=== PATIENT | female | born 1990 | race Caucasian/White ===

== ENCOUNTER 2018-01-09 01:22 | Emergency (ER) | payer OTHER ==
[2018-01-09] MEDS ORDERED: LIDOCAINE 1% 20 ML MDV ONE (02:00)
--- NOTE | 2018-01-09 02:48 | ER ---
Nurse's Notes [facility] Name: Irma Mckeon Age: 27 yrs Sex: Female : 1990 Arrival Date: 01/09/2018 Time: :23 Bed 23 Private MD: Manpreet Plascencia T Diagnosis: Abscess to left upper, inner thigh Presentation: 01/09 01:39 Presenting complaint: Patient states: "I have a boil on my left groin"; States seen by lp1 Dr. Plascencia on Wednesday and prescribed antibiotic and Pyridium; has taken 1 dose of antibiotic; States pain when walking. Transition of care: patient was not received from another setting of care. Onset of symptoms was January 09, 2018. Initial Sepsis Screen: Does the patient meet any 2 criteria? No. Patient's initial sepsis screen is negative. Does the patient have a suspected source of infection? No. Patient's initial sepsis screen is negative. Care prior to arrival: None. 01:39 Method Of Arrival: Wheelchair lp1 01:39 Acuity: ELLEN 4 lp1 Triage Assessment: 01:45 General: Appears uncomfortable, Behavior is appropriate for age. Pain: Complains of lp1 pain in left inner thigh Pain currently is 10 out of 10 on a pain scale. EENT: No signs and/or symptoms were reported regarding the EENT system. Neuro: Level of Consciousness is awake, alert, obeys commands. Cardiovascular: Patient's skin is warm and dry. Respiratory: Respiratory effort is even, unlabored, Respiratory pattern is regular. GI: No signs and/or symptoms were reported involving the gastrointestinal system. : No signs and/or symptoms were reported regarding the genitourinary system. Derm: Skin is pink, warm \\T\\ dry. Abscess located on left inner thigh is half dollar sized. Musculoskeletal: Circulation, motion, and sensation intact. 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 - Social history:: Smoking status: Patient uses tobacco products, smokes one-half pack cigarettes per day. Screenin:44 Abuse screen: Denies threats or abuse. Denies injuries from another. Nutritional lp1 screening: No deficits noted. Tuberculosis screening: No symptoms or risk factors identified. Fall Risk None identified. Assessment: 01:45 Reassessment: See Triage assessment. lp1 03:00 Reassessment: Patient is alert, oriented x 3, equal unlabored respirations, skin lp1 warm/dry/pink. Bandage applied to left inner thigh for continued drainage. Vital Signs: 01:43 BP 140 / 89; Pulse 103; Resp 16; Temp 99.0(O); Pulse Ox 99% on R/A; Weight 51.26 kg; lp1 Height 5 ft. 1 in. (154.94 cm); Pain 9/10; 03:27 BP 134 / 84; Pulse 90; Resp 18; Pulse Ox 99% on R/A; lp1 01:43 Body Mass Index 21.35 (51.26 kg, 154.94 cm) lp1 ED Course: 01:23 Patient arrived in ED. am2 01:23 Manpreet Plascencia MD is Private Physician. am2 01:37 Sunitha Evans FNP-C is [facility]. snw 01:37 Rex Simon MD is Attending Physician. snw 01:39 Anali Shaikh, KEVAN is Primary Nurse. lp1 01:42 Triage completed. lp1 01:42 Arm band placed on left wrist. lp1 01:44 Patient has correct armband on for positive identification. lp1 02:30 Assist provider with I \\T\\ D: of an abscess on left inner thigh. lp1 02:46 Manpreet Plascencia MD is Referral Physician. snw 03:20 Patient did not have IV access during this emergency room visit. lp1 Administered Medications: 02:30 Drug: Lidocaine (1 %) 1 vials Volume: 20 ml; Route: Infiltration; lp1 03:23 Drug: Motrin 600 mg Route: PO; lp1 03:24 Follow up: Response: Medication administered at discharge. lp1 Outcome: 02:47 Discharge ordered by . snw 03:24 Discharged to home ambulatory, with significant other. lp1 03:24 Condition: good 03:24 Discharge instructions given to patient, Instructed on discharge instructions, follow up and referral plans. medication usage, Demonstrated understanding of instructions, follow-up care, medications, Prescriptions given X 3. 03:29 Patient left the ED. lp1 Signatures: Sunitha Evans, CYLINDER BATCHER-C CYLINDER BATCHER-Csnw Anali Shaikh RN RN lp1 Sabrina Rankin am2
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
[2018-01-09] MEDS ORDERED: KETOROLAC 30 MG/ML INJ ONE (03:09)
[2018-01-09] MEDS ORDERED: IBUPROFEN 200 MG TAB PO ONE (03:21)
[2018-01-09] MEDS ORDERED: IBUPROFEN 400 MG TAB ONE (03:21)
[2018-01-09 03:33] VITALS: TEMP 99; O2SAT 99
[2018-01-09 03:34] VITALS: BP 134/84
== END 2018-01-09 03:29 | disposition home or self-care (01) ==
LOC: ER 01:22
PROC: 0J9M0ZZ Drainage of Left Upper Leg Subcutaneous Tissue and Fascia, Open Approach (ICD-10-PCS; principal; 2018-01-09)
DX: L02.416 Cutaneous abscess of left lower limb (principal); F17.210 Nicotine dependence, cigarettes, uncomplicated
CPT/HCPCS: 99283

== ENCOUNTER 2018-11-28 19:37 | Emergency (ER) | payer OTHER, SELFPAY ==
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
[2018-11-28 23:38] VITALS: TEMP 98.2; O2SAT 100
[2018-11-28 23:41] VITALS: BP 105/76
== END 2018-11-28 21:38 | disposition home or self-care (01) ==
LOC: ER 19:37
PROC: 2W3JX1Z Immobilization of Right Finger using Splint (ICD-10-PCS; principal; 2018-11-28)
DX: S62.366A Nondisplaced fracture of neck of fifth metacarpal bone, right hand, initial encounter for closed fracture (principal); Y04.2XXA Assault by strike against or bumped into by another person, initial encounter; Y93.9 Activity, unspecified; Y92.9 Unspecified place or not applicable; F17.210 Nicotine dependence, cigarettes, uncomplicated
CPT/HCPCS: 99283

== ENCOUNTER 2020-06-24 20:47 | Emergency (ER) | payer SELFPAY ==
[2020-06-24] MEDS ORDERED: CYCLOBENZAPRINE 10 MG TAB ONE (22:07)
[2020-06-24] MEDS ORDERED: KETOROLAC 30 MG/ML INJ ONE (22:08)
--- NOTE | 2020-06-24 22:35 | ER ---
Nurse's Notes [facility] Name: Irma Mckeon Age: 29 yrs Sex: Female : 1990 Arrival Date: 06/24/2020 Time: 20:49 Bed 14 Private MD: Diagnosis: Low back pain Presentation: 06/24 21:07 Chief complaint: Patient states: low back pain since this morning, I coughed and ca1 instantly hurt and I couldn't move my back. I couldn't bend over. Denies injury to the back. Denies urinary symptoms. Coronavirus screen: Client denies travel out of the [place] in the last 14 days. At this time, the client does not indicate any symptoms associated with coronavirus-19. Ebola Screen: Patient negative for fever greater than or equal to 101.5 degrees Fahrenheit, and additional compatible Ebola Virus Disease symptoms Patient denies exposure to infectious person. Patient denies travel to an Ebola-affected area in the 21 days before illness onset. No symptoms or risks identified at this time. Initial Sepsis Screen: Does the patient meet any 2 criteria? No. Patient's initial sepsis screen is negative. Does the patient have a suspected source of infection? No. Patient's initial sepsis screen is negative. Risk Assessment: Do you want to hurt yourself or someone else? Patient reports no desire to harm self or others. Onset of symptoms was June 24, 2020. 21:07 Method Of Arrival: Ambulatory ca1 21:07 Acuity: ELLEN 4 ca1 Triage Assessment: 21:50 General: Appears in no apparent distress. uncomfortable, Behavior is calm, cooperative, bb3 appropriate for age, Reports. Pain: Pain currently is 7 out of 10 on a pain scale. Quality of pain is described as sharp, shooting, Pain began this morning. 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 - Social history:: Smoking status: Patient reports the use of cigarette tobacco products, smokes one-half pack cigarettes per day. Screenin:02 Abuse screen: Denies threats or abuse. Nutritional screening: No deficits noted. bb3 Tuberculosis screening: No symptoms or risk factors identified. Fall Risk None identified. Assessment: 21:50 General: Appears in no apparent distress. comfortable, slender, well groomed, Behavior bb3 is calm, cooperative, appropriate for age, Smells of Reports. Pain: Complains of pain in lumbar area, left low back and right low back Pain currently is 7 out of 10 on a pain scale. Quality of pain is described as sharp, shooting, Pain began this morning. 23:05 Reassessment: Patient appears in no apparent distress at this time. Patient and/or bb3 family updated on plan of care and expected duration. Pain level reassessed. Patient is alert, oriented x 3, equal unlabored respirations, skin warm/dry/pink. Patient denies pain at this time. Patient states feeling better. Patient states symptoms have improved. General: Appears in no apparent distress. comfortable. Pain: Denies pain. Vital Signs: 21:07 BP 128 / 89; Pulse 79; Resp 18 S; Temp 97.8(O); Pulse Ox 100% on R/A; Weight 49.9 kg ca1 (R); Height 5 ft. 1 in. (154.94 cm) (R); Pain 8/10; 21:51 BP 124 / 72; Pulse 68; Resp 18; Temp 98.3; Pulse Ox 99% ; Pain 7/10; bb3 22:27 BP 124 / 72; Pulse 87; Resp 17; Pulse Ox 98% ; Pain 2/10; bb3 23:06 BP 119 / 76; Pulse 87; Resp 17; Pulse Ox 99% ; Pain 0/10; bb3 21:07 Body Mass Index 20.78 (49.90 kg, 154.94 cm) ca1 ED Course: 20:49 Patient arrived in ED. bp1 21:09 Triage completed. ca1 21:10 Arm band placed on right wrist. ca1 21:13 Samantha Garduno FNP-C [facility]. kb 21:13 Miki Lara MD is Attending Physician. kb 22:03 Bed in low position. Call light in reach. Side rails up X 1. senior quality control inspector on. Pulse bb3 ox on. 22:03 No provider procedures requiring assistance completed. bb3 Administered Medications: 22:00 Drug: TORadol 30 mg Route: IM; Site: right deltoid; bb3 22:34 Follow up: Response: No adverse reaction; Marked relief of symptoms; Pain is decreased bb3 22:00 Drug: Flexeril 10 mg Route: PO; bb3 22:34 Follow up: Response: No adverse reaction; Marked relief of symptoms; Pain is decreased bb3 Outcome: 22:35 Discharge ordered by MD. weathers 23:07 Patient left the ED. bb3 Signatures: Samantha Garduno FNP-C PAY STATION DEPARTMENT MANAGER-CkRanjana Tillman RN RN ca1 Cherelle Deng bb3 Olga Pedraza bp1 Corrections: (The following items were deleted from the chart) 22:04 22:03 Inserted saline lock: 20 gauge in right in left antecubital area, using aseptic bb3 technique. bb3 22:34 22:32 Pain: Pain currently is 2 out of 10 on a pain scale. bb3 bb3 22:36 22:32 General: Appears in no apparent distress. comfortable, Behavior is calm, bb3 cooperative, appropriate for age, bb3
--- NOTE | 2020-06-24 22:36 | EDPHYS ---
Physician Documentation [facility] Name: Irma Mckeon Age: 29 yrs Sex: Female : 1990 Arrival Date: 06/24/2020 Time: 20:49 Bed 14 Private MD: ED Physician Miki Lara HPI: 06/24 22:31 This 29 yrs old Female presents to ER via Ambulatory with complaints of Low kb Back Pain, Unexplained Weight Loss. 22:31 The patient presents with pain that is acute, with no known mechanism of injury. The kb symptoms are located in the low back. The pain does not radiate. The problem was sustained without known cause. Onset: The symptoms/episode began/occurred today. Modifying factors: The patient symptoms are alleviated by nothing, the patient symptoms are aggravated by leaning forward. Associated signs and symptoms: The patient has no apparent associated signs or symptoms. Severity of symptoms: At their worst the symptoms were mild, in the emergency department the symptoms are unchanged. The patient has not experienced similar symptoms in the past. The patient has not recently seen a physician. Pt reports low back pain that started this morning after coughing. States pain is resolved when still, but returns if she leans forward. Also reports right wrist pain that is intermittent, hasn't had the pain in a few days, but when she does have it the pain stays for about 2 days then resolves on its own. Lastly, pt reports weight loss of approx 35 lbs that occurred over a couple of months. Pt reports she is already seeing her dr for this and has had a workup to determine the cause but they have been unable to find one yet. 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 - Social history:: Smoking status: Patient reports the use of cigarette tobacco products, smokes one-half pack cigarettes per day. ROS: 22:26 Constitutional: Negative for fever, chills, and weight loss, Cardiovascular: Negative kb for chest pain, palpitations, and edema, Respiratory: Negative for shortness of breath, cough, wheezing, and pleuritic chest pain, Abdomen/GI: Negative for abdominal pain, nausea, vomiting, diarrhea, and constipation, : Negative for injury, bleeding, discharge, and swelling, MS/Extremity: Negative for injury and deformity, Skin: Negative for injury, rash, and discoloration, Neuro: Negative for headache, weakness, numbness, tingling, and seizure. 22:26 Back: Positive for pain with movement, of the low back area. Exam: 22:30 Constitutional: This is a well developed, well nourished patient who is awake, alert, kb and in no acute distress. Head/Face: Normocephalic, atraumatic. Chest/axilla: Normal chest wall appearance and motion. Nontender with no deformity. No lesions are appreciated. Cardiovascular: Regular rate and rhythm with a normal S1 and S2. No gallops, murmurs, or rubs. Normal PMI, no JVD. No pulse deficits. Respiratory: Lungs have equal breath sounds bilaterally, clear to auscultation and percussion. No rales, rhonchi or wheezes noted. No increased work of breathing, no retractions or nasal flaring. Abdomen/GI: Soft, non-tender, with normal bowel sounds. No distension or tympany. No guarding or rebound. No evidence of tenderness throughout. Back: No spinal tenderness. No costovertebral tenderness. Full range of motion. Skin: Warm, dry with normal turgor. Normal color with no rashes, no lesions, and no evidence of cellulitis. MS/ Extremity: Pulses equal, no cyanosis. Neurovascular intact. Full, normal range of motion. Neuro: Awake and alert, GCS 15, oriented to person, place, time, and situation. Cranial nerves II-XII grossly intact. Motor strength 5/5 in all extremities. Sensory grossly intact. Cerebellar exam normal. Normal gait. Vital Signs: 21:07 BP 128 / 89; Pulse 79; Resp 18 S; Temp 97.8(O); Pulse Ox 100% on R/A; Weight 49.9 kg ca1 (R); Height 5 ft. 1 in. (154.94 cm) (R); Pain 8/10; 21:51 BP 124 / 72; Pulse 68; Resp 18; Temp 98.3; Pulse Ox 99% ; Pain 7/10; bb3 22:27 BP 124 / 72; Pulse 87; Resp 17; Pulse Ox 98% ; Pain 2/10; bb3 23:06 BP 119 / 76; Pulse 87; Resp 17; Pulse Ox 99% ; Pain 0/10; bb3 21:07 Body Mass Index 20.78 (49.90 kg, 154.94 cm) ca1 MDM: 21:25 Patient medically screened. kb 22:25 Data reviewed: vital signs, nurses notes. Data interpreted: Pulse oximetry: on room air kb is 99 %. Interpretation: normal. Counseling: I had a detailed discussion with the patient and/or guardian regarding: the historical points, exam findings, and any diagnostic results supporting the discharge/admit diagnosis, the need for outpatient follow up, a family practitioner, to return to the emergency department if symptoms worsen or persist or if there are any questions or concerns that arise at home. Administered Medications: 22:00 Drug: TORadol 30 mg Route: IM; Site: right deltoid; bb3 22:34 Follow up: Response: No adverse reaction; Marked relief of symptoms; Pain is decreased bb3 22:00 Drug: Flexeril 10 mg Route: PO; bb3 22:34 Follow up: Response: No adverse reaction; Marked relief of symptoms; Pain is decreased bb3 Disposition: 06/25 05:37 Co-signature as Attending Physician, Miki Lara MD. [email or web address] Disposition: 06/24/20 22:35 Discharged to Home. Impression: Low back pain. - Condition is Stable. - Discharge Instructions: Back Injury Prevention, [id number], Back Pain, Adult, Ylan-cd-Kthc, Back Exercises, [id number]. - Prescriptions for Cyclobenzaprine 10 mg Oral Tablet - take 1 tablet by ORAL route every 8 hours As needed; 21 tablet. Diclofenac Sodium 75 mg Oral Tablet, Delayed Release (E.C.) - take 1 tablet by ORAL route 2 times per day As needed; 30 tablet. - Medication Reconciliation Form, Thank You Letter, Antibiotic Education, Prescription Opioid Use form. - Follow up: Emergency Department; When: As needed; Reason: Worsening of condition. Follow up: Private Physician; When: 2 - 3 days; Reason: Recheck today's complaints, Continuance of care, Re-evaluation by your physician. Signatures: Samantha Garduno, ADY-C NARROW GAUGE BRAKEMAN-Ranjana Ngo RN RN ca1 Cherelle Deng bb3 Miki Lara MD MD [email or web address] Corrections: (The following items were deleted from the chart) 06/24 23:07 22:35 06/24/2020 22:35 Discharged to Home. Impression: Low back pain. Condition is bb3 Stable. Forms are Medication Reconciliation Form, Thank You Letter, Antibiotic Education, Prescription Opioid Use. Follow up: Emergency Department; When: As needed; Reason: Worsening of condition. Follow up: Private Physician; When: 2 - 3 days; Reason: Recheck today's complaints, Continuance of care, Re-evaluation by your physician. kb
[2020-06-24 23:48] VITALS: TEMP 98.3
[2020-06-24 23:54] VITALS: BP 119/76; O2SAT 99
== END 2020-06-24 23:07 | disposition home or self-care (01) ==
LOC: ER 20:47
DX: M54.5 Low back pain (principal); F17.210 Nicotine dependence, cigarettes, uncomplicated
CPT/HCPCS: 96372; 99284

== ENCOUNTER 2022-08-16 22:46 | Emergency (ER) | payer SELFPAY ==
--- NOTE | 2022-08-16 23:27 | EDPHYS ---
Physician Documentation [facility] Name: Irma Mckeon Age: 31 yrs Sex: Female : 1990 Arrival Date: 08/16/2022 Time: 22:50 Bed IW1 Private MD: ED Physician Benson Caldera HPI: 08/16 23:31 This 31 yrs old Female presents to ER via Ambulatory with complaints of BUMP kb ON FACE. 23:31 the patient presents with a swollen area of the left preauricular area. Description: kb erythematous, swollen. Onset: The symptoms/episode began/occurred 6 month(s) ago. Possible cause(s): unknown. Associated signs and symptoms: Pertinent positives: erythema. Modifying factors: the symptoms are alleviated by nothing, the symptoms are aggravated by nothing. Severity of symptoms: At their worst the symptoms were mild, in the emergency department the symptoms are unchanged. The patient has not experienced similar symptoms in the past. The patient has been recently seen by a physician:. Pt reports she was seen by loss prevention coordinator for a cyst on left side of face and she was told to follow up with plastics to have it removed. States she doesn't have insurance so she has been putting it off. Noticed slight redness today so wanted to get it checked again. States the cyst came up about 6 months ago. Historical: - Allergies: 22:56 No Known Allergies; hb - Home Meds: 22:56 None [Active]; hb - PMHx: 22:56 None; hb - PSHx: 22:56 None; hb - Immunization history:: Adult Immunizations up to date. - Social history:: Smoking status: . ROS: 23:30 Constitutional: Negative for fever, chills, and weight loss. kb 23:30 Skin: Positive for of the left preauricular area, cyst. 23:30 All other systems are negative. Exam: 23:30 Constitutional: This is a well developed, well nourished patient who is awake, alert, kb and in no acute distress. Head/Face: Normocephalic, atraumatic. ENT: Moist Mucous membranes Cardiovascular: Regular rate and rhythm with a normal S1 and S2. No gallops, murmurs, or rubs. No pulse deficits. Respiratory: Respirations even and unlabored. No increased work of breathing. Talking in full sentences MS/ Extremity: Pulses equal, no cyanosis. Neurovascular intact. Full, normal range of motion. Neuro: Awake and alert, GCS 15, oriented to person, place, time, and situation. Moves all extremities. Normal gait. Psych: Awake, alert, with orientation to person, place and time. Behavior, mood, and affect are within normal limits. 23:30 Skin: cyst noted to left preauricular area with slight redness. . Vital Signs: 22:54 BP 126 / 75; Pulse 88; Resp 16; Temp 98.3; Pulse Ox 100% on R/A; Weight 54.43 kg; hb Height 5 ft. 1 in. (154.94 cm); Pain 5/10; 22:54 Body Mass Index 22.67 (54.43 kg, 154.94 cm) hb MDM: 23:25 Patient medically screened. kb 23:25 Data reviewed: vital signs, nurses notes. Data interpreted: Pulse oximetry: on room air kb is 100 %. Interpretation: normal. Counseling: I had a detailed discussion with the patient and/or guardian regarding: the historical points, exam findings, and any diagnostic results supporting the discharge/admit diagnosis, the need for outpatient follow up, a general surgeon, a plastic surgeon, to return to the emergency department if symptoms worsen or persist or if there are any questions or concerns that arise at home. Administered Medications: No medications were administered Disposition: 08/17 04:18 Co-signature as Attending Physician, Benson Caldera MD I agree with the assessment and rt plan of care. Disposition Summary: 08/16/22 23:26 Discharge Ordered Location: Home kb Condition: Stable kb Diagnosis - Epidermal cyst kb Followup: kb - With: Emergency Department - When: As needed - Reason: Worsening of condition Followup: kb - With: Private Physician - When: 2 - 3 days - Reason: Recheck today's complaints, Continuance of care, Re-evaluation by your physician Discharge Instructions: - Discharge Summary Sheet kb - Epidermal Cyst Removal kb - Epidermal Cyst, [id number]-ov-Gpvx kb Forms: - Medication Reconciliation Form kb - Thank You Letter kb - Antibiotic Education kb - Prescription Opioid Use kb Prescriptions: - Cephalexin 500 mg Oral Capsule - take 1 capsule by ORAL route every 8 hours for 10 days; 30 capsule; Refills: 0, kb Product Selection Permitted Signatures: Samantha Garduno FNP-C HOME HEALTH LPN-Ckb Awa Herrera, RN RN hb Benson Caldera MD MD rt
--- NOTE | 2022-08-16 23:27 | ER ---
Nurse's Notes [facility] Name: Irma Mckeon Age: 31 yrs Sex: Female : 1990 Arrival Date: 08/16/2022 Time: 22:50 Bed IW1 Private MD: Diagnosis: Epidermal cyst Presentation: 08/16 22:54 Chief complaint: Abscess on left cheek x 6 months. Recently seen by her showcase maker, hb referred to plastics but has not made follow up appt. Coronavirus screen: At this time, the client does not indicate any symptoms associated with coronavirus-19. Ebola Screen: No symptoms or risks identified at this time. Initial Sepsis Screen: Does the patient meet any 2 criteria? No. Patient's initial sepsis screen is negative. Does the patient have a suspected source of infection? No. Patient's initial sepsis screen is negative. Risk Assessment: Do you want to hurt yourself or someone else? Patient reports no desire to harm self or others. Onset of symptoms is unknown. 22:54 Method Of Arrival: Ambulatory hb 22:54 Acuity: ELLEN 4 hb Triage Assessment: 22:56 General: Appears in no apparent distress. Behavior is calm, cooperative. Neuro: Level hb of Consciousness is awake, alert, obeys commands, Oriented to person, place, time, situation. Cardiovascular: Patient's skin is warm and dry. Respiratory: Respiratory effort is even, unlabored, Respiratory pattern is regular, symmetrical. Historical: - Allergies: 22:56 No Known Allergies; hb - Home Meds: 22:56 None [Active]; hb - PMHx: 22:56 None; hb - PSHx: 22:56 None; hb - Immunization history:: Adult Immunizations up to date. - Social history:: Smoking status: . Screenin:57 Abuse screen: Denies threats or abuse. Denies injuries from another. Nutritional hb screening: No deficits noted. Tuberculosis screening: No symptoms or risk factors identified. Fall Risk None identified. Assessment: 23:32 General: See triage assessment. hb Vital Signs: 22:54 BP 126 / 75; Pulse 88; Resp 16; Temp 98.3; Pulse Ox 100% on R/A; Weight 54.43 kg; hb Height 5 ft. 1 in. (154.94 cm); Pain 5/10; 22:54 Body Mass Index 22.67 (54.43 kg, 154.94 cm) hb ED Course: 22:50 Patient arrived in ED. dt4 22:56 Triage completed. hb 22:56 Arm band placed on. hb 22:57 Patient has correct armband on for positive identification. hb 23:15 Samantha Garduno FNP-C [facility]. kb 23:15 Benson Caldera MD is Attending Physician. kb 23:32 No provider procedures requiring assistance completed. Patient did not have IV access hb during this emergency room visit. Administered Medications: No medications were administered Medication: 22:57 VIS not applicable for this client. hb Outcome: 23:26 Discharge ordered by . kb 23:32 Discharged to home ambulatory. hb 23:32 Condition: stable 23:32 Discharge instructions given to patient, Instructed on discharge instructions, follow up and referral plans. medication usage, Demonstrated understanding of instructions, follow-up care, medications, Prescriptions given X 1. 23:33 Patient left the ED. hb Signatures: Samantha Garduno FNP-C FNP-Ckb Baxter, Heather, RN RN Bibi Smith dt4 Corrections: (The following items were deleted from the chart) 23:11 22:54 Acuity: ELLEN 5 hb hb
[2022-08-17 00:30] VITALS: BP 126/75; TEMP 98.3; O2SAT 100
== END 2022-08-16 23:33 | disposition home or self-care (01) ==
LOC: ER 22:46
DX: L72.9 Follicular cyst of the skin and subcutaneous tissue, unspecified (principal)
CPT/HCPCS: 99282

== ENCOUNTER 2023-04-15 21:35 | Emergency (ER) | payer SELFPAY ==
--- OUTSIDE RECORDS SUMMARY | 2023-04-15 21:38 | XMS REPORT | Continuity of Care Document ---
:1990 Author Organization [facility] t Address [address] [place] [address] [address] [place] [address] Care Team Providers Name Role Phone SANGITA ANKITA Primary Care Physician Unavailable ENRIQUE CACERES Attending Clinician Unavailable Enrique Caceres MD Attending Clinician Doctor Unassigned, [place] Attending Clinician Unavailable Chun MECRADO, Sendmilind K.H. Attending Clinician PRINCESS SUAREZ Attending Clinician Unavailable Princess Suarez MD Attending Clinician Problems This patient has no known problems. Allergies, Adverse Reactions, Alerts Allergy Allergy Status Severity Reaction(s) Onset Inactive Treating Comm ents Source Name Type Date Date Clinician NO KNOWN Drug Active Univers ALLERGIE Class ity of S [facility] Social History Social Habit Start Date Stop Date Quantity Comments Source History of Cigarette Smoker Universi ty of tobacco use [facility] Tobacco use and 2023-03-08 2023-03-08 Smokeless tobacco Un iversity of exposure 00:00:00 00:00:00 non-user [facility] Sex Assigned At [birth year] Universit y of 00:00:00 00:00:00 [facility] Smoking Status Start Date Stop Date Source Tobacco smoking consumption [facility] Smokes tobacco daily 2023-03-08 00:00:00 [facility] Medications Ordered Filled Start Stop Current Ordering Indication Dosage Frequency Signature Comments Components Source Medication Medication Date Date Medication? Clinician (SIG) Name Name [facility] 20 2022- No 40meq 40 mEq, Univer s mEq/15 mL 02-19 Oral, ity of solution 40 08:30: 08:01 [place] :00 dose, On Medical 02/19/23 Branch at 0330, MIRA Vital Signs Vital Name Observation Time Observation Value Comments Source Systolic blood 2023-03-08 14:36:00 117 mm[Hg] Univer sity of pressure [facility] Diastolic blood 2023-03-08 14:36:00 83 mm[Hg] Unive rsity of [facility] Heart rate 2023-03-08 14:36:00 76 /min Universi ty [facility] Body temperature 2023-03-08 14:36:00 36.61 [facility] 2023-03-08 14:36:00 17 /min [facility] Body height 2023-03-08 14:36:00 154.9 cm Universi ty [facility] Body weight 2023-03-08 14:36:00 54.885 kg Universi ty [facility] BMI 2023-03-08 14:36:00 22.86 kg/m2 [facility] Oxygen saturation in 2023-03-08 14:36:00 98 /min University of Arterial blood by [facility] Pulse oximetry [place] Systolic blood 2023-02-19 07:00:00 111 mm[Hg] Univer sity of [facility] Diastolic blood 2023-02-19 07:00:00 71 mm[Hg] Unive rsity [facility] Heart rate 2023-02-19 07:00:00 73 /min Universi ty [facility] Respiratory rate 2023-02-19 07:00:00 19 /min [facility] Oxygen saturation in 2023-02-19 07:00:00 93 /min University Arterial blood by [facility] Pulse oximetry [place] Body temperature 2023-02-19 05:34:00 37.17 [facility] ersity [facility] Body height 2023-02-19 05:34:00 154.9 cm Universi ty [facility] Body weight 2023-02-19 05:34:00 56.7 kg [facility] BMI 2023-02-19 05:34:00 23.62 kg/m2 [facility] Procedures Procedure Date / Time Performing Clinician Source Performed CONSENT/REFUSAL FOR 2023-03-08 14:16:27 Doctor Unassstefan, No Un [facility] DIAGNOSIS AND TREATMENT Name [facility] EKG-12 LEAD 2023-02-19 07:34:53 Princess Suarez [facility] LIPASE 2023-02-19 05:43:00 Princess Suarez [facility] TROPONIN I 2023-02-19 05:43:00 Princess Suarez [facility] THYROID STIMULATING 2023-02-19 05:43:00 Princess Suarez [facility] HORMONE [facility] COMP. METABOLIC PANEL 2023-02-19 05:43:00 Princess Suarez [facility] ([id number]) [facility] CBC WITH DIFF 2023-02-19 05:43:00 Princess Suarez [facility] URINALYSIS 2023-02-19 05:43:00 Princess Suarez [facility] Encounters Start End Encounter Admission Attending Care Care Encounter Source Date/Time Date/Time Type Type Clinicians Facility Department ID 2023-03-08 2023-03-08 Outpatient R MORRIS [facility] [id number] [facility] 09:40:00 09:52:30 ENRIQUE brock o f [facility] 2023-03-08 2023-03-08 Office Morris [facility] [id number] [facility] 09:40:00 09:52:30 Visit Enrique DAVIS [id number] [place] [id number] [place] 059 Branch BUILDING 2023-03-08 2023-03-08 Orders Doctor LAURA [id number] Univers 00:00:00 00:00:00 Only Unassigned, LILIA [id number] ity of [place] [facility] 4.2.7.2.686 Jesse as [phone] [facility] 00[address] Branch 2023-02-22 2023-02-22 [facility] [id number] Univers 00:00:00 00:00:00 Send[place] Ilene DAVIS [id number] [place] [id number] [facility]59 [facility] 2023-02-19 2023-02-19 Emergency X [facility] ERT [id number] Univers 00:39:00 03:09:00 [facility] 2023-02-19 2023-02-19 Emergency [facility] [id number] Univers 00:39:00 03:09:00 Guille Yannick DAVIS [id number] it[place] [phone] [place] [id number] [place] Results Test Description Test Time Test Comments Results Result Comments Source THYROID STIMULATING HORMONE 2023-02-19 07:05:10 Test Item Value Reference Range Interpretation Comme nts TSH (test code = 5262296984) 4.58 See_Comment [Automated message] The system which generated this result transmitted ref erence range: 0.45 - 4.70 mIU/L. T he reference range was not used to interpret this result as ariane l/abnormal. Lab Interpretation (test code = Normal 52521-6) [id number] 06:46:25 Test Item Value Reference Range Interpretation Comments TROPONIN I (test code = 0.004 ng/mL <=0.034 0988437784) SWAPNA (test code = SWAPNA) Reference (Normal) Range (defined by the 99th percentile reference limit): <= 0.034 ng/mL Note: Cardiac troponin begins to rise 3-4 hours after the onset of ischemia. Repeat in 4-6 hours if the sample was drawn within 3-4 hours of the onset of the symptom and found normal. Diagnosis of myocardial injury is made with acute changes in cTn concentrations with at least one serial sample above the 99th percentile upper reference limit (URL), taken together with the patient's clinical presentation. Biotin has been reported to cause a negative bias, interpret results relative to patient's use of biotin. Lab Interpretation Normal (test code = 21107-4) [facility]. METABOLIC PANEL ([id number])2023-02-19 06:34:25 Test Item Value Reference Range Interpretation Comments NA (test code = 140 mmol/L 135-145 2007636518) K (test code = 3.4 mmol/L 3.5-5.0 L 0587846822) CL (test code = 108 mmol/L 98-108 2835904120) CO2 TOTAL (test code = 22 mmol/L 23-31 L 9269663786) AGAP (test code = 10 2-16 9835283038) BUN (test code = 16 mg/dL 7-23 3333264031) GLUCOSE (test code = 163 mg/dL 70-110 H 8745986733) CREATININE (test code = 0.57 mg/dL 0.50-1.04 8314575917) TOTAL BILI (test code = 0.4 mg/dL 0.1-1.9 0370995968) CALCIUM (test code = 9.6 mg/dL 8.6-10.6 9558571544) T PROTEIN (test code = 7.6 g/dL 6.3-8.2 7317562721) ALBUMIN (test code = 4.9 g/dL 3.5-5.0 4594048028) ALK PHOS (test code = 56 U/L 34-122 0498903053) ALTv (test code = 22 U/L 5-35 1742-6) AST(SGOT) (test code = 26 U/L 13-40 9325656652) eGFR (test code = 124.5 mL/min/1.73m2 6517399177) SWAPNA (test code = SWAPNA) Association of Glomerular Filtration Rate (GFR) and Staging of Kidney Disease* + --+ --+ ------+| GFR (mL/min/1.73 m2) ?| With Kidney Damage ?| ?Without Kidney Damage+ --------+ --------+ +| ?>90 ?| ?Stage one ?| ? Normal ?+ ---+ ---+ -------+| ?60-89 ?| ?Stage two ?| ? Decreased GFR ? + --+ --+ ------+| ?30-59 ?| ?Stage three ?| ? Stage three ? + --+ --+ ------+| ?15-29 ?| ?Stage four ? | ? Stage four ?+ ---+ ---+ -------+| ?<15 (or dialysis) ? ?| ?Stage five ? | ? Stage five ?+ ---+ ---+ -------+ *Each stage assumes the associated GFR level has been in effect for at least three months. ?Stages 1 to 5, with or without kidney disease, indicate chronic kidney disease. Notes: Determination of stages one and two (with eGFR >59mL/min/1.73 m2) requires estimation of kidney damage for at least three months as defined by structural or functional abnormalities of the kidney, manifested by either:Pathological abnormalities or Markers of kidney damage (including abnormalities in the composition of the blood or urine or abnormalities in imaging tests). Lab Interpretation Abnormal (test code = 82240-6) [facility] [id number] 06:34:05 Test Item Value Reference Range Interpretation Comments LIPASE (test code = 1138236402) 81 U/L 0-220 Lab Interpretation (test code = Normal 07127-4) [facility] WITH [id number] 06:18:21 Test Item Value Reference Range Interpretation Comments WBC (test code = 7.93 See_Comment [Automated 6840-2) message] The sy stem which generated this result transmitted reference range : 4.30 - 11.10 10*3/?L. The reference range was not used to interpret this result as normal/abnormal . RBC (test code = 3.94 See_Comment [Automated 255-8) message] The sy stem which generated this result transmitted reference range : 3.93 - 5.25 10*6/?L. The reference range was not used to interpret this result as normal/abnormal . HGB (test code = 12.8 g/dL 11.6-15.0 718-7) HCT (test code = 35.2 % 35.7-45.2 L 4544-3) MCV (test code = 89.3 fL 80.6-95.5 787-2) MCH (test code = 32.5 pg 25.9-32.8 785-6) MCHC (test code = 36.4 g/dL 31.6-35.1 H 786-4) RDW-SD (test code = 39.3 fL 39.0-49.9 36355-0) RDW-CV (test code = 12.0 % 12.0-15.5 788-0) PLT (test code = 241 See_Comment [Automated 777-3) message] The sy stem which generated this result transmitted reference range : 166 - 358 10*3/ ?L. The reference r alex was not used to interpret this result as normal/abnormal . MPV (test code = 10.5 fL 9.5-12.9 30200-3) NRBC/100 WBC (test 0.0 See_Comment [Automat ed code = 2781503147) message] The system which generated this result transmitted reference range : 0.0 - 10.0 /100 WBCs. The refer ence range was not u sed to interpret th is result as normal/abnormal . NRBC x10^3 (test code See_Comment [Auto mated = 6096628147) message] The s ystem which generated this result transmitted reference range : 10*3/?L. The reference range was not used to interpret this result as normal/abnormal . GRAN MAT (NEUT) % 63.1 % (test code = 770-8) IMM GRAN % (test code 0.10 % = 4637791092) LYMPH % (test code = 26.1 % 736-9) MONO % (test code = 6.9 % 5905-5) EOS % (test code = 3.3 % 713-8) BASO % (test code = 0.5 % 706-2) GRAN MAT x10^3(ANC) 5.00 10*3/uL 1.88-7.09 (test code = 8494830764) IMM GRAN x10^3 (test 0.00-0.06 code = 9687634481) LYMPH x10^3 (test code 2.07 10*3/uL 1.32-3.29 = 731-0) MONO x10^3 (test code 0.55 10*3/uL 0.33-0.92 = 742-7) EOS x10^3 (test code = 0.26 10*3/uL 0.03-0.39 711-2) BASO x10^3 (test code 0.04 10*3/uL 0.01-0.07 = 704-7) Lab Interpretation Abnormal (test code = 77947-8) [facility]"
--- NOTE | 2023-04-15 22:09 | RAD REPORT ---
EXAM DESCRIPTION: RAD - Chest Single View - 04/15/2023 10:02 pm CLINICAL HISTORY: CHEST PAIN Chest pain. COMPARISON: <Comparisons> FINDINGS: Portable technique limits examination quality. The lungs are grossly clear. The heart is normal in size. No displaced fractures. IMPRESSION: No acute intrathoracic process suspected.
[2023-04-15] MEDS ORDERED: FENTANYL CITR 100 MCG/2 ML ONE (22:10)
[2023-04-15] MEDS ORDERED: ONDANSETRON 4 MG/2 ML VIAL ONE (22:10)
[2023-04-15] MEDS ORDERED: NA CHLORIDE 0.9% 1,000 ML ONE (22:10)
[2023-04-15] MEDS ORDERED: FAMOTIDINE 20 MG/2 ML VIAL IV ONE (22:11)
--- NOTE | 2023-04-15 22:14 | RAD REPORT ---
EXAM DESCRIPTION: US - Abdomen Exam Limited - 04/15/2023 10:08 pm CLINICAL HISTORY: ABD PAIN COMPARISON: No comparisons FINDINGS: The gallbladder demonstrates no gallstones. No pericholecystic fluid or gallbladder wall t hickening. The common bile duct is normal measuring 2 mm. The liver demonstrates no findings of intrahepatic biliary dilatation. IMPRESSION: Unremarkable examination.
[2023-04-15 22:36] LABS: Absolute Lymphocytes (CBC) 1.9 K/uL (0.7-4.9); Hematocrit 36.9 % (36.0-45.0); Lymphocytes % 31.3 % (15.3-44.8); MPV 8.4 fL (7.6-11.3); RBC Red Blood Cell Count 4.01 M/uL (3.86-4.86)
[2023-04-15 22:40] LABS: Protime INR 1.26
[2023-04-15] MEDS ORDERED: ASPIRIN 81 MG CHEWABLE TABLET ONE (22:42)
[2023-04-15 22:56] LABS: ALT/SGPT 28 U/L (13-56); AST/SGOT 14 U/L (15-37); Albumin 4.3 g/dL (3.4-5.0); Alkaline Phosphatase 67 U/L (45-117); BUN Blood Urea Nitrogen 13 mg/dL (7-18); Bicarbonate 26 mEq/L (21-32); Bilirubin Total 0.3 mg/dL (0.2-1.0); Glomerular Filtration Rate 122 ml/min (=/>90); Glucose Level 118 mg/dL (74-106); Lipase 40 U/L (13-75); NT PRO-BNP 15 pg/mL (<125); Potassium 3.4 mEq/L (3.5-5.1); Protein, Total 8.2 g/dL (6.4-8.2); Sodium Level 141 mEq/L (136-145)
[2023-04-15 22:57] LABS: Bilirubin Direct < 0.1 mg/dL (0-0.2); Bilirubin Indirect, Calculated ND mg/dL (0.2-0.8); Troponin High Sensitivity < 3.0 pg/mL (<58.9)
[2023-04-15] MEDS ORDERED: POTASSIUM 25 MEQ EFFERV TAB ONE (23:23)
--- NOTE | 2023-04-16 00:37 | EDPHYS ---
Physician Documentation [facility] Name: Irma Mckoen Age: 32 yrs Sex: Female : 1990 Arrival Date: 04/15/2023 Time: 21:35 Bed 13 Private MD: Manpreet Plascencia T ED Physician Luigi Garg HPI: 04/15 21:52 This 32 yrs old Female presents to ER via Unassigned with complaints of Chest diane Tightness, Nausea. 21:52 The patient or guardian reports chest pain that is located primarily in the substernal diane area. The pain radiates to Associated signs and symptoms: Pertinent positives: shortness of breath. The chest pain is described as sharp. Duration: The patient or guardian reports multiple episodes, with no pattern. Modifying factors: The symptoms are alleviated by nothing. the symptoms are aggravated by nothing. Severity of pain: At its worst the pain was mild in the emergency department the pain is unchanged. The patient has not experienced similar symptoms in the past. Historical: - Allergies: 21:52 No Known Allergies; as6 - PMHx: 21:52 Palpitations; Hypercholesterolemia; as6 - PSHx: 21:52 section; left knee repair; as6 - Immunization history:: Adult Immunizations up to date, Client reports having NOT received the Covid vaccine. Last tetanus immunization: > 10 years ago Flu vaccine is not up to date. - Social history:: Smoking status: Reported history of juuling and/or vaping. Patient/guardian denies using alcohol, street drugs. - Family history:: not pertinent. ROS: 21:52 Constitutional: Negative for fever, chills, and weight loss, Eyes: Negative for injury, diane pain, redness, and discharge, ENT: Negative for injury, pain, and discharge, Neck: Negative for injury, pain, and swelling, Respiratory: Negative for shortness of breath, cough, wheezing, and pleuritic chest pain, Abdomen/GI: Negative for abdominal pain, nausea, vomiting, diarrhea, and constipation, Back: Negative for injury and pain, : Negative for injury, bleeding, discharge, and swelling, MS/Extremity: Negative for injury and deformity, Skin: Negative for injury, rash, and discoloration, Neuro: Negative for headache, weakness, numbness, tingling, and seizure, Psych: Negative for depression, anxiety, suicide ideation, homicidal ideation, and hallucinations, Allergy/Immunology: Negative for hives, rash, and allergies, Endocrine: Negative for neck swelling, polydipsia, polyuria, polyphagia, and marked weight changes, Hematologic/Lymphatic: Negative for swollen nodes, abnormal bleeding, and unusual bruising. 21:52 Cardiovascular: Positive for chest pain. Exam: 21:52 Constitutional: This is a well developed, well nourished patient who is awake, alert, diane and in no acute distress. Head/Face: Normocephalic, atraumatic. Eyes: Pupils equal round and reactive to light, extra-ocular motions intact. Lids and lashes normal. Conjunctiva and sclera are non-icteric and not injected. Cornea within normal limits. Periorbital areas with no swelling, redness, or edema. ENT: Nares patent. No nasal discharge, no septal abnormalities noted. Tympanic membranes are normal and external auditory canals are clear. Oropharynx with no redness, swelling, or masses, exudates, or evidence of obstruction, uvula midline. Mucous membranes moist. Neck: Trachea midline, no thyromegaly or masses palpated, and no cervical lymphadenopathy. Supple, full range of motion without nuchal rigidity, or vertebral point tenderness. No Meningismus. Chest/axilla: Normal chest wall appearance and motion. Nontender with no deformity. No lesions are appreciated. Cardiovascular: Regular rate and rhythm with a normal S1 and S2. No gallops, murmurs, or rubs. Normal PMI, no JVD. No pulse deficits. Respiratory: Lungs have equal breath sounds bilaterally, clear to auscultation and percussion. No rales, rhonchi or wheezes noted. No increased work of breathing, no retractions or nasal flaring. Abdomen/GI: Soft, non-tender, with normal bowel sounds. No distension or tympany. No guarding or rebound. No evidence of tenderness throughout. Back: No spinal tenderness. No costovertebral tenderness. Full range of motion. Skin: Warm, dry with normal turgor. Normal color with no rashes, no lesions, and no evidence of cellulitis. MS/ Extremity: Pulses equal, no cyanosis. Neurovascular intact. Full, normal range of motion. Neuro: Awake and alert, GCS 15, oriented to person, place, time, and situation. Cranial nerves II-XII grossly intact. Motor strength 5/5 in all extremities. Sensory grossly intact. Cerebellar exam normal. Normal gait. Psych: Awake, alert, with orientation to person, place and time. Behavior, mood, and affect are within normal limits. 21:52 Musculoskeletal/extremity: DVT Exam: No signs of deep vein thrombosis. no pain, no swelling, no tenderness, negative Homans' sign noted on exam, no appreciated bluish discoloration, no erythema, no increased warmth. 22:06 ECG was reviewed by the Attending Physician. [facility] 04/16 00:16 ECG was reviewed by the Attending Physician. [facility] Vital Signs: 04/15 21:45 BP 137 / 91; Pulse 90; Resp 19 S; Pulse Ox 100% on R/A; [facility] 21:50 BP 151 / 83; Pulse 84; Resp 18; Temp 98.4; Pulse Ox 100% on R/A; Weight 54.88 kg; as6 Height 5 ft. 1 in. ; Pain 6/10; 22:15 BP 118 / 81; Pulse 76; Resp 19 S; Pulse Ox 98% on R/A; 7 23:00 BP 115 / 76; Pulse 69; Resp 18 S; Pulse Ox 99% on R/A; [facility] 04/16 00:13 BP 131 / 85; Pulse 63; Resp 14 S; Pulse Ox 100% on R/A; [facility] 04/15 21:50 Body Mass Index 22.86 (54.88 kg, 154.94 cm) as6 21:50 Pain Scale: Adult as6 [place] Coma Score: 00:16 Eye Response: spontaneous(4). Motor Response: obeys commands(6). Verbal Response: diane oriented(5). Total: 15. MDM: 04/15 21:38 Patient medically screened. [facility] 22:02 Differential diagnosis: abnormal EKG, acute myocardial infarction, acute pericarditis, diane anxiety, coronary artery disease chest wall pain, hiatal hernia, pancreatitis, peptic ulcer disease, pericarditis, pleurisy, pneumonia, pneumothorax, pulmonary embolus, stable angina, thoracic aortic disection, unstable angina. HEART Score: History: Slightly Suspicious (0), ECG: Normal (0), Age: < or = 45 years (0), Risk Factors: No Risk Factors Known (0), Troponin: < or = 1 x Normal Limit (0). DARIAN Risk Score: TOTAL SCORE = 0. Data reviewed: vital signs, nurses notes, lab test result(s), EKG, radiologic studies, CT scan, plain films. Consideration of Admission/Observation Escalation of care including admission/observation considered. I considered the following discharge prescriptions or medication management in the emergency department Medications were administered in the Emergency Department. See MAR. Independent interpretation of the following test(s) in the Emergency Department EKG: See my EKG interpretation above. Test considered but Not performed: Ultrasound no echo. Care significantly affected by the following chronic conditions: high cholsterol, palp. Counseling: I had a detailed discussion with the patient and/or guardian regarding: the historical points, exam findings, and any diagnostic results supporting the discharge/admit diagnosis, lab results, radiology results, the need for outpatient follow up, for definitive care, a application trainer, a family practitioner. 04/15 21:52 Order name: Basic Metabolic Panel; Complete Time: 22:58 [facility] 04/15 21:52 Order name: CBC with Diff; Complete Time: 22:58 [facility] 04/15 21:52 Order name: LFT's; Complete Time: 22:58 04/15 21:52 Order name: Magnesium; Complete Time: 22:58 04/15 21:52 Order name: NT PRO-BNP; Complete Time: 22:58 04/15 21:52 Order name: PT-INR; Complete Time: 22:58 04/15 21:52 Order name: Troponin HS; Complete Time: 22:58 diane 04/15 21:52 Order name: Lipase; Complete Time: 22:58 [facility] 04/15 23:35 Order name: Troponin HS; Complete Time: 00:16 [facility] 04/15 21:52 Order name: XRAY Chest (1 view); Complete Time: 22:58 [facility] 04/15 21:52 Order name: US Abdomen Limited; Complete Time: 22:58 [facility] 04/15 21:52 Order name: CT Aorta for Dissection 04/15 21:52 Order name: EKG; Complete Time: 21:52 04/16 00:02 Order name: EKG; Complete Time: 00:03 04/15 21:52 Order name: Cardiac monitoring; Complete Time: 21:54 [facility] 04/15 21:52 Order name: EKG - Nurse/Tech; Complete Time: 21:54 [facility] 04/15 21:52 Order name: IV Saline Lock; Complete Time: 22:34 [facility] 04/15 21:52 Order name: Labs collected and sent; Complete Time: :34 [facility] 04/15 21:52 Order name: O2 Per Protocol; Complete Time: :54 [facility] 04/15 21:52 Order name: O2 Sat Monitoring; Complete Time: :54 [facility] 04/16 00:02 Order name: EKG - Nurse/Tech; Complete Time: 00:13 [facility] EC:06 Rate is 81 beats/min. Rhythm is regular. QRS [place] is Normal. CO interval is normal. QRS diane interval is normal. QT interval is normal. No Q waves. T waves are Normal. No ST changes noted. Clinical impression: NSR w/ Non-specific ST/T Changes and No evidence of ischemia. Interpreted by me. Reviewed by me. 04/16 00:16 Rate is 70 beats/min. Rhythm is regular. QRS [place] is Normal. CO interval is normal. QRS diane interval is normal. QT interval is normal. No Q waves. T waves are Normal. No ST changes noted. Clinical impression: Normal ECG and No evidence of ischemia. Interpreted by me. Reviewed by me. Administered Medications: 04/15 22:31 Drug: NS 0.9% IV 1000 ml Route: IV; Rate: 1 bolus; Site: right antecubital; jw7 23:18 Follow up: Response: No adverse reaction; IV Status: Infusion continued; IV Intake: jw7 400ml 22:31 Drug: Famotidine IVP 20 mg Route: IVP; Site: right antecubital; jw7 23:18 Follow up: Response: No adverse reaction jw7 22:31 Drug: fentaNYL (PF) IVP 50 mcg Route: IVP; Site: right antecubital; jw7 23:17 Follow up: Response: No adverse reaction jw7 22:31 Drug: Ondansetron IVP 4 mg Route: IVP; Site: right antecubital; jw7 23:17 Follow up: Response: No adverse reaction jw7 22:33 Drug: Aspirin PO Chewable Tablet 81 mg Route: PO; jw7 23:17 Follow up: Response: No adverse reaction jw7 23:17 Drug: Potassium PO Effervescent Tablet 25 mEq Route: PO; jw7 23:47 Follow up: Response: No adverse reaction jw7 04/16 00:53 Drug: Alum-Mag Hydroxide-Simeth PO Suspension (200 mg-200 mg-20 mg/5 mL) 30 ml Route: jw7 PO; 00:53 Follow up: Response: No adverse reaction jw7 Disposition Summary: 04/16/23 00:37 Discharge Ordered Location: Home diane Problem: new diane Symptoms: have improved diane Condition: Stable diane Diagnosis - Chest pain, unspecified diane - Hypokalemia diane Followup: diane - With: - When: 2 - 3 days - Reason: Recheck today's complaints, Continuance of care, Re-evaluation by your physician Followup: diane - With: - When: 2 - 3 days - Reason: Recheck today's complaints, Re-evaluation by your physician Discharge Instructions: - Discharge Summary Sheet diane - Nonspecific Chest Pain, Adult diane - Potassium Content of Foods diane - Nonspecific Chest Pain, Adult, [id number] diane - Aspirin and Your Heart diane - Hypokalemia [facility] Forms: - Medication Reconciliation Form [facility] - Thank You Letter [facility] - Antibiotic Education diane - Prescription Opioid Use diane - Patient Portal Instructions [facility] Prescriptions: - ondansetron 4 mg Oral Tablet,disintegrating - take 1 tablet by ORAL route every 6-8 hours for 3 days; 20 tablet; Refills: 0, [facility] Product Selection Permitted - Pepcid 20 mg Oral Tablet - take 1 tablet by ORAL route every 12 hours for 21 days; 42 tablet; Refills: 0, [facility] Product Selection Permitted Signatures: Dispatcher [employer] Luigi Benton MD MD cha Slawson, Ashby, RN RN as6 Angelica Mcknight RN RN jw7
--- NOTE | 2023-04-16 00:37 | ER ---
Nurse's Notes [facility] Name: Irma Mckeon Age: 32 yrs Sex: Female : 1990 Arrival Date: 04/15/2023 Time: 21:35 Bed 13 Private MD: Manpreet Plascencia T Diagnosis: Chest pain, unspecified;Hypokalemia Presentation: 04/15 21:50 Chief complaint: Patient states: substernal chest pain of 6 that radiates to mid back as6 and right lower back pain,onset this AM, worse this PM with constant chest tightness. Coronavirus screen: Vaccine status: Patient reports being unvaccinated. Client denies travel out of the [place] in the last 14 days. Ebola Screen: Patient negative for fever greater than or equal to 101.5 degrees Fahrenheit, and additional compatible Ebola Virus Disease symptoms. Initial Sepsis Screen: Does the patient meet any 2 criteria? No. Patient's initial sepsis screen is negative. Does the patient have a suspected source of infection? No. Patient's initial sepsis screen is negative. Risk Assessment: Do you want to hurt yourself or someone else? Patient reports no desire to harm self or others. 21:50 Method Of Arrival: Ambulatory as6 21:50 Acuity: ELLEN 2 as6 04/16 00:55 Onset of symptoms was April 16, 2023. jw7 Historical: - Allergies: 04/15 21:52 No Known Allergies; as6 - PMHx: 21:52 Palpitations; Hypercholesterolemia; as6 - PSHx: 21:52 section; left knee repair; as6 - Immunization history:: Adult Immunizations up to date, Client reports having NOT received the Covid vaccine. Last tetanus immunization: > 10 years ago Flu vaccine is not up to date. - Social history:: Smoking status: Reported history of juuling and/or vaping. Patient/guardian denies using alcohol, street drugs. - Family history:: not pertinent. Screenin:50 [facility] ED Fall Risk Assessment (Adult) History of falling in the last 3 months, jw7 including since admission No falls in past 3 months (0 pts) Score/Fall Risk Level 0 - 2 = Low Risk. Abuse screen: Denies threats or abuse. Denies injuries from another. Nutritional screening: No deficits noted. Tuberculosis screening: No symptoms or risk factors identified. Assessment: 22:50 General: Appears in no apparent distress. Behavior is calm, cooperative. Pain: jw7 Complains of pain in chest Pain radiates to back Pain began suddenly. Neuro: Level of Consciousness is awake, alert, obeys commands, Oriented to person, place, time, situation. Cardiovascular: Capillary refill < 3 seconds Patient's skin is warm and dry. Respiratory: Airway is patent Trachea midline Respiratory effort is even, unlabored, Respiratory pattern is regular, symmetrical. 23:17 Reassessment: Patient appears in no apparent distress at this time. Patient and/or jw7 family updated on plan of care and expected duration. Pain level reassessed. Patient is alert, oriented x 3, equal unlabored respirations, skin warm/dry/pink. Patient states feeling better. Patient states symptoms have improved. 04/16 00:14 Reassessment: Patient appears in no apparent distress at this time. Patient and/or jw7 family updated on plan of care and expected duration. Pain level reassessed. Patient is alert, oriented x 3, equal unlabored respirations, skin warm/dry/pink. Reassessment: pt states chest pain is improved, still complains of pain to upper back. Vital Signs: 04/15 21:45 BP 137 / 91; Pulse 90; Resp 19 S; Pulse Ox 100% on R/A; 7 21:50 BP 151 / 83; Pulse 84; Resp 18; Temp 98.4; Pulse Ox 100% on R/A; Weight 54.88 kg; as6 Height 5 ft. 1 in. ; Pain 6/10; 22:15 BP 118 / 81; Pulse 76; Resp 19 S; Pulse Ox 98% on R/A; jw7 23:00 BP 115 / 76; Pulse 69; Resp 18 S; Pulse Ox 99% on R/A; 7 04/16 00:13 BP 131 / 85; Pulse 63; Resp 14 S; Pulse Ox 100% on R/A; 7 04/15 21:50 Body Mass Index 22.86 (54.88 kg, 154.94 cm) as6 21:50 Pain Scale: Adult as6 [place] Coma Score: 00:16 Eye Response: spontaneous(4). Motor Response: obeys commands(6). Verbal Response: diane oriented(5). Total: 15. ED Course: 08/03 21:36 Patient arrived in ED. am2 21:36 Manpreet Plascencia MD is Private Physician. am2 21:37 Luigi Garg MD is Attending Physician. diane 21:50 Angelica Mcknight, KEVAN is Primary Nurse. jw7 21:52 Triage completed. as6 22:05 XRAY Chest (1 view) In Process Unspecified. EDMS 22:09 US Abdomen Limited In Process Unspecified. EDMS 22:33 Initial lab(s) drawn, by me, sent to lab. Inserted saline lock: 20 gauge in right jw7 antecubital area, using aseptic technique. Blood collected. 22:34 Basic Metabolic Panel Sent. jw7 22:34 CBC with Diff Sent. jw7 22:34 LFT's Sent. jw7 22:34 Magnesium Sent. jw7 22:34 NT PRO-BNP Sent. jw7 22:34 PT-INR Sent. jw7 22:34 Troponin HS Sent. jw7 22:50 Patient has correct armband on for positive identification. Bed in low position. Call jw7 light in reach. Side rails up X 1. Client placed on continuous cardiac and pulse oximetry monitoring. NIBP monitoring applied. 23:19 Patient maintains SpO2 saturation greater than 95% on room air. jw7 23:47 Troponin HS Sent. jw7 08 00:00 CT Aorta for Dissection In Process Unspecified. EDMS 00:37 Manpreet Plascencia MD is Referral Physician. diane 00:37 Ghulam Klein MD is Referral Physician. diane 00:53 No provider procedures requiring assistance completed. IV discontinued, intact, jw7 bleeding controlled, No redness/swelling at site. Pressure dressing applied. 00:54 Provided Education on: discharge instructions, and medications. jw7 00:55 Arm band placed on. jw7 Administered Medications: 04/15 22:31 Drug: NS 0.9% IV 1000 ml Route: IV; Rate: 1 bolus; Site: right antecubital; jw7 23:18 Follow up: Response: No adverse reaction; IV Status: Infusion continued; IV Intake: jw7 400ml 22:31 Drug: Famotidine IVP 20 mg Route: IVP; Site: right antecubital; jw7 23:18 Follow up: Response: No adverse reaction jw7 22:31 Drug: fentaNYL (PF) IVP 50 mcg Route: IVP; Site: right antecubital; jw7 23:17 Follow up: Response: No adverse reaction jw7 22:31 Drug: Ondansetron IVP 4 mg Route: IVP; Site: right antecubital; jw7 23:17 Follow up: Response: No adverse reaction jw7 22:33 Drug: Aspirin PO Chewable Tablet 81 mg Route: PO; jw7 23:17 Follow up: Response: No adverse reaction jw7 23:17 Drug: Potassium PO Effervescent Tablet 25 mEq Route: PO; jw7 23:47 Follow up: Response: No adverse reaction jw7 04/16 00:53 Drug: Alum-Mag Hydroxide-Simeth PO Suspension (200 mg-200 mg-20 mg/5 mL) 30 ml Route: jw7 PO; 00:53 Follow up: Response: No adverse reaction jw7 Medication: 04/15 22:50 VIS not applicable for this client. jw7 Intake: 23:18 IV: 400ml; Total: 400ml. jw7 Outcome: 04/16 00:37 Discharge ordered by MD. contreras 00:53 Discharged to home ambulatory, with family. jw7 00:53 Condition: stable 00:53 Discharge instructions given to patient, Instructed on discharge instructions, follow up and referral plans. medication usage, Demonstrated understanding of instructions, follow-up care, medications, Prescriptions given X 2. 00:57 Patient left the ED. jw7 Signatures: Dispatcher [employer] Luigi Benton MD MD cha Moreno, Amanda am2 Slawson, Ashby, RN RN as6 Angelica Mcknight RN RN jw7
[2023-04-16] MEDS ORDERED: MAGNES/ALUMIN/SIMET 30ML UCUP ONE (00:56)
[2023-04-16 01:17] VITALS: TEMP 98.4
[2023-04-16 01:25] VITALS: BP 131/85; O2SAT 100
--- NOTE | 2023-04-16 15:01 | RAD REPORT ---
EXAM DESCRIPTION: Angio Aorta For Dissection 04/16/2023 12:22 AM CDT CLINICAL HISTORY: 32 years, Female, pe;Dissection COMPARISON: None. TECHNIQUE: Multiple transaxial tomograms of the thoracic and abdominal aorta from the lung apex to t he ischial tuberosities utilizing 3 mm slice thickness at 3 mm interval reconstruction after the admi nistration of large bolus of IV contrast for complete opacification of the thoracic, abdominal aorta and iliac arteries. 2-D and 3-D multiplanar reformats, volume rendering technique and maximum intensity projection images were generated and reviewed. This exam was performed according to our departmental dose-optimization protocol, which includes auto mated exposure control, adjustment of the mA and/or kV according to patient size and/or use of iterat matthew reconstruction technique. FINDINGS: Thoracic aorta: The thoracic aorta demonstrate to be within normal limits. No definitive evidence for dissection/or a neurysm allowing for motion artifact along the ascending thoracic aorta/aortic root. There is normal branching pattern of the great vessels with no evidence for significant stenosis/or proximal occlusio n. Abdominal aorta: The abdominal aorta demonstrate to be within normal limits. No evidence for significant dissection/or aneurysm. The visceral branches demonstrate normal branching pattern with no evidence for significan t stenosis/or occlusion. There are single bilateral renal arteries with no significant abnormalities. Bilateral iliac arteries demonstrate to be patent with no evidence for significant stenosis/or occlu edgar. Chest: The lung parenchyma demonstrate to be within normal limits. No significant pulmonary nodules and/or m asses. The trachea mainstem bronchus demonstrate to be unremarkable. There is no pleural/or pericardi al effusions. The heart is normal in size. There are no significant coronary artery calcifications. T he central portions of the pulmonary arteries demonstrate normal opacification with no evidence for s ignificant filling defects that will suggest pulmonary embolus. There is no significant mediastinal a nd/or hilar lymphadenopathy. The axillary regions demonstrate to be clear. The bone windows demonstra te no significant skeletal lesions. Abdomen and pelvis: The liver, gallbladder, spleen, adrenal glands, pancreas demonstrate to be unremarkable. The kidneys demonstrate normal uptake of contrast media. There is a mid pole right renal calculus donya suring 2.6 mm. There is no evidence for hydronephrosis/or hydroureter. The unopacified stomach, small bowel and large bowel demonstrate to be within normal limits. No evide nce for bowel dilatation/or free air. Left site colon demonstrate to unremarkable. The appendix is no rmal. The urinary bladder demonstrate to be within normal limits. There is no retroperitoneal lymphadenopat hy. There is no evidence for ascites. The uterus is unremarkable. There are no adnexal masses The bone windows demonstrate no significant skeletal lesions/or compression deformities. IMPRESSION: Thoracic and abdominal aorta demonstrate no evidence for aneurysm and/or dissection. 2.6 mm nonobstructing right renal calculus. Otherwise unremarkable CT scan of the chest abdomen and pelvis with contrast. Electronically signed by: Iain Puente MD 04/16/2023 12:28 AM CDT Due to temporary technical issues with the PACS/Fluency reporting system, reports are being signed by the in house radiologists without review as a courtesy to insure prompt reporting. The interpreting radiologist is fully responsible for the content of the report.
--- NOTE | 2023-04-19 13:14 | EKG ---
Test Date: 2023-04-16 Test Time: 00:09:15 Manager Fiber: MARRY MEASUREMENT RESULTS: Intervals: Rate: 70 TN: 162 QRSD: 82 QT: 394 QTc: 425 [place]: P: 56 TN: 162 QRS: 60 T: 41 INTERPRETIVE STATEMENTS: Normal sinus rhythm with sinus arrhythmia Normal ECG No previous ECG available for comparison Electronically Signed On 04-19-23 13:09:48 CDT by Ghulam Klein
--- NOTE | 2023-04-19 13:14 | EKG ---
Test Date: 2023-04-15 Test Time: 21:45:59 [employer]ision Devices Inspector/Tester: BLANCA MEASUREMENT RESULTS: Intervals: Rate: 81 [place]: 130 QRSD: 84 QT: 342 QTc: 397 [place]: P: 51 [place]: 130 QRS: 56 T: 48 INTERPRETIVE STATEMENTS: Normal sinus rhythm Nonspecific ST abnormality Abnormal ECG No previous ECG available for comparison Electronically Signed On 04-19-23 13:10:03 CDT by Ghulam Klein
== END 2023-04-16 00:57 | disposition home or self-care (01) ==
LOC: ER 21:35
DX: R07.89 Other chest pain (principal); E87.6 Hypokalemia
CPT/HCPCS: 36415; 71045; 71275; 74175; 76705; 80048; 80076; 83690; 83735; 83880; 84484; 85025; 85610; 93005; 96361; 96374; 96375; 99285; J2405; J3010; J7030; Q9967

== ENCOUNTER 2023-07-30 11:26 | Emergency (ER) | payer SELFPAY ==
--- OUTSIDE RECORDS SUMMARY | 2023-07-30 11:29 | XMS REPORT | Continuity of Care Document ---
:[address] [facility] t Address [address] [facility] [address] [place] [address] Care Team Providers Name Role Phone SANGITA ANKITA Primary Care Physician Unavailable ENRIQUE CACERES Attending Clinician Unavailable Enrique Caceres MD Attending Clinician Doctor Unassigned, Rodriguez Hevia Attending Clinician Unavailable Chun MERCADO, Sendmilind K.H. Attending Clinician PRINCESS SUAREZ Attending Clinician Unavailable Princess Suarez MD Attending Clinician Problems This patient has no known problems. Allergies, Adverse Reactions, Alerts Allergy Allergy Status Severity Reaction(s) Onset Inactive Treating Comm ents Source Name Type Date Date Clinician NO KNOWN Drug Active Univers ALLERGIE Class ity of S [facility] Social History Social Habit Start Date Stop Date Quantity Comments Source History of Cigarette Smoker Universi ty of tobacco use [facility] Tobacco use and 2023-03-08 2023-03-08 Smokeless tobacco Un iversity of exposure 00:00:00 00:00:00 non-user [facility] Sex Assigned At [birth year] Universit y of 00:00:00 00:00:00 [facility] Smoking Status Start Date Stop Date Source Tobacco smoking consumption Univ [facility] Branch Smokes tobacco daily 2023-03-08 00:00:00 [facility] Medications Ordered Filled Start Stop Current Ordering Indication Dosage Frequency Signature Comments Components Source Medication Medication Date Date Medication? Clinician (SIG) Name Name [facility] 20 40meq 40 mEq, Univer s mEq/15 mL 02-19 Oral, ity of solution 40 08:30: 08:01 [place] :00 dose, On Medical 02/19/23 Branch at 0330, MIRA Vital Signs Vital Name Observation Time Observation Value Comments Source Systolic blood 2023-03-08 14:36:00 117 mm[Hg] Univer sity of pressure [facility] Diastolic blood 2023-03-08 14:36:00 83 mm[Hg] Unive rsity of [facility] Heart rate 2023-03-08 14:36:00 76 /min Universi ty [facility] Body temperature 2023-03-08 14:36:00 36.61 Sarina [facility] ersity [facility] Respiratory rate 2023-03-08 14:36:00 17 /min Univ ersity [facility] Body height 2023-03-08 14:36:00 154.9 cm Universi ty [facility] Body weight 2023-03-08 14:36:00 54.885 kg Universi ty [facility] BMI 2023-03-08 14:36:00 22.86 kg/m2 Universi ty [facility] Oxygen saturation in 2023-03-08 14:36:00 98 /min University of Arterial blood by [facility] Pulse oximetry [place] Systolic blood 2023-02-19 07:00:00 111 mm[Hg] Univer sity of [facility] Diastolic blood 2023-02-19 07:00:00 71 mm[Hg] Unive rsity of [facility] Heart rate 2023-02-19 07:00:00 73 /min Universi ty [facility] Respiratory rate 2023-02-19 07:00:00 19 /min [facility] Oxygen saturation in 2023-02-19 07:00:00 93 /min University of Arterial blood by [facility] Pulse oximetry [place] Body temperature 2023-02-19 05:34:00 37.17 Sarina [facility] ersity [facility] Body height 2023-02-19 05:34:00 154.9 cm Universi ty [facility] Body weight 2023-02-19 05:34:[address] [facility] BMI 2023-02-19 05:34:00 23.62 kg/m2 [facility] Procedures Procedure Date / Time Performing Clinician Source Performed CONSENT/REFUSAL FOR 2023-03-08 14:16:27 Doctor Unassigned, No Un [facility] DIAGNOSIS AND TREATMENT Name [facility] EKG-12 LEAD 2023-02-19 07:34:53 Princess Suarez [facility] LIPASE 2023-02-19 05:43:00 Princess Suarez [facility] TROPONIN I 2023-02-19 05:43:00 Princess Suarez [facility] THYROID STIMULATING 2023-02-19 05:43:00 Princess Suarez [facility] HORMONE [facility] COMP. METABOLIC PANEL 2023-02-19 05:43:00 Princess Suarez [facility] ([id number]) [facility] CBC WITH DIFF 2023-02-19 05:43:00 Princess Suarez [facility] URINALYSIS 2023-02-19 05:43:00 Princess Suarez [facility] Encounters Start End Encounter Admission Attending Care Care Encounter Source Date/Time Date/Time Type Type Clinicians Facility Department ID 2023-06-01 2023-06-01 Outpatient [facility] [place] 13:42:14 13:42:14 [id number] [place] 2023-05-22 2023-05-22 Outpatient [facility] [place] 14:06:34 14:06:34 [id number] [facility] [place] 2023-04-20 2023-04-20 Outpatient [facility] [place] 10:20:16 10:20:16 [id number] [facility] [place] 2023-03-08 2023-03-08 Outpatient R [facility] [id number] Univers 09:40:00 09:52:30 ENRIQUE sage [facility] 2023-03-08 2023-03-08 Office [facility] [id number] Univers 09:40:00 09:52:30 Visit Enrique DAVIS [id number] ity [place] [id number] Ms dical NAL 059 [facility] 2023-03-08 2023-03-08 Orders Doctor LAURA [id number] Univers 00:00:00 00:00:00 Only Unassigned, LILIA [id number] ity of Rodriguez Hevia [facility] 4.2.7.2.686 Jesse as [id number] [address] 2023-02-22 2023-02-22 Telephone [facility] [id number] Univers 00:00:00 00:00:00 Sendmilind DAVIS [id number] [place] [id number] [place] [id number] [facility] 2023-02-19 2023-02-19 Emergency X [facility] ERT [id number] Univers 00:39:00 03:09:00 PRINCESS ity [facility] 2023-02-19 2023-02-19 Emergency [facility] [id number] Univers 00:39:00 03:09:00 Princess DAVIS 350.1.13.10 [place] [id number] [address] Results Test Description Test Time Test Comments Results Result Comments Source PAP TEST, THINPREP, IMAGED 2023-04-22 11:36:48 Test Item Value Reference Range Interpretation Comme nts SOURCE: (test code = Cervical/Endocervical 8001) SLIDES: (test code = 1 8011) LMP: (test code = NOT GIVEN 8021) SPECIMEN ADEQUACY: (NOTE) Satisfac tory for (test code = 45145) evaluati on. Endocervical cells/transform ation zone component prese nt. INTERPRETATION: NILM/NO EPITH. ABNORMALITY;SEE (test code = 56124) BELOW -------- NEGATIVE FOR INTRAEPITHE LIAL LESION OR MALIGNANCY ( NILM) -- OTHER COMMENTS: (NOTE) Shift in nyasia ra suggestive of (test code = 8081) bacterial vaginosis. OPHTHALMIC ASSISTANT: Zoey Frederick,CT(ASCP)IAC (test code = 8101) QC TECHNOLOGIST: Joseph Horn, CT(ASCP)IAC (test code = 8111) LOCATION: (test code (NOTE) Specime ns processed and = 64967) [facility] [address] [place] [id number], Phone: , CLIA: [id number] CPT: (test code = (NOTE) 17021 UNLE SS OTHERWISE 8140) INDICATED, COMP UTER AIDED AND CYTOTECHNOL OGIST SCREENING PERFO RMED. The Pap test is a s creening test with an inheren t, but low probability of error. Your patient should be reminded to consult you immediately if she experien carole any suspicious sign s or symptoms, regar dless of her Pap test result . An alternate repor t format containing imag es or consolidated pr ior Pap history is geraldine eaton as applicable. HPV HIGH RISK WITH GENOTYPE, [id number] 17:11:24 Test Item Value Reference Range Interpretation Comments HPV HIGH RISK INTERP POSITIVE NEGATIVE A (test code = 68481) HPV 16 (test code = NEGATIVE 06413) HPV 18 (test code = NEGATIVE 70384) HPV, HR, OTHER POSITIVE A Testing meth odology is GENOTYPES (test code real-ti me PCR utilizing = 54627) hydrolysis prob es with the uShip Sudhir 4800 system. The sourav t individually de tects genotypes 16 an d 18, as well as the oth er 12 high risk types (31,33,35,39,45 ,51,52,56 ,58,59,66,68). The expected result is negative. A neg ative result does not rule out the presence of HPV not included in the genotype set, a low leve l of infection or sp ecimen sampling error. UNLESS OTHERWISE INDIC ATED, ALL TESTING PERFORM ED AT [facility]. [address] [place] [address] LABORATORY DIRE CTOR: KAROL RYAN M.D. CLIA NUMBER [id number] [place] [id number] VAGINAL PATHOGENS DNA [id number] 15:51:26 Test Item Value Reference Range Interpretation Comments LINDSEY SPECIES NEGATIVE NEGATIVE (test code = ) G. VAGINALIS POSITIVE NEGATIVE A (test code = ) T. VAGINALIS NEGATIVE NEGATIVE Note: The BD A ffirm VPIII (test code = Microbial Ident ification ) Testis a DNA pr obe test intended for us e in the detectionand id entification of Lindsey spec ies, Gardnerellavagi nalis and Trichomonas vag inalis nucleic acid. U NLESS OTHERWISE INDIC ATED, ALL TESTING PERFORM ED AT [facility]. [address] [place] [address]202 LABORATORY DIRE CTOR: KAROL RYAN M.D. CLIA NUMBER [id number] [place]EDIT[place] N O. [id number] THYROID STIMULATING [id number] 07:05:10 Test Item Value Reference Range Interpretation Comments TSH (test code = 4.58 See_Comment [Automated message] [id number]) The system [employer] generated this result transmitted ref erence range: 0.45 - 4 .70 mIU/L. The refe rence range was not u sed to interpret this result as normal/abnor mal. Lab Interpretation (test Normal code = 46927-6) [facility] [id number] 06:46:25 Test Item Value Reference Range Interpretation Comments TROPONIN I (test code = 0.004 ng/mL <=0.034 [id number]) SWAPNA (test code = SWAPNA) Reference (Normal) [...] biotin. Lab Interpretation Normal (test code = 08932-5) [facility]. METABOLIC PANEL (65135)2023-02-19 06:34:25 Test Item Value Reference Range Interpretation Comments NA (test code = 140 mmol/L 135-145 4217254426) K (test code = 3.4 mmol/L 3.5-5.0 L 6373657011) CL (test code = 108 mmol/L 98-108 4410429639) CO2 TOTAL (test code = 22 mmol/L 23-31 L 1966647409) AGAP (test code = 10 2-16 1061887212) BUN (test code = 16 mg/dL 7-23 8576185794) GLUCOSE (test code = 163 mg/dL 70-110 H 8708705116) CREATININE (test code = 0.57 mg/dL 0.50-1.04 7013885637) TOTAL BILI (test code = 0.4 mg/dL 0.1-1.4 6800674756) CALCIUM (test code = 9.6 mg/dL 8.6-10.6 1411515757) T PROTEIN (test code = 7.6 g/dL 6.3-8.2 5041963438) ALBUMIN (test code = 4.9 g/dL 3.5-5.0 2533273903) ALK PHOS (test code = 56 U/L 34-122 7559722657) ALTv (test code = 22 U/L 5-35 1742-6) AST(SGOT) (test code = 26 U/L 13-40 8548260591) eGFR (test code = 124.5 mL/min/1.73m2 2564466236) SWAPNA (test code = SWAPNA) Association of [...] tests). Lab Interpretation Abnormal (test code = 72278-0) [facility] [id number] 06:34:05 Test Item Value Reference Range Interpretation Comments LIPASE (test code = 1301884619) 81 U/L 0-220 Lab Interpretation (test code = Normal 15081-9) [facility] WITH [id number] 06:18:21 Test Item Value Reference Range Interpretation Comments WBC (test code = 7.93 See_Comment [Automated 5491-2) message] The sy stem which generated this result transmitted reference range : 4.30 - 11.10 10*3/?L. The reference range was not used to interpret this result as normal/abnormal . RBC (test code = 3.94 See_Comment [Automated 986-9) message] The sy stem which generated this [...] RDW-SD (test code = 39.3 fL 39.0-49.9 14153-8) RDW-CV (test code = 12.0 % 12.0-15.5 788-0) PLT (test code = 241 See_Comment [Automated 777-3) message] The sy stem which generated this result transmitted reference range : 166 - 358 10*3/ ?L. The reference r alex was not used to interpret this result as normal/abnormal . MPV (test code = 10.5 fL 9.5-12.9 40463-6) NRBC/100 WBC (test 0.0 See_Comment [Automat ed code = 7876514367) message] The system which generated this result transmitted reference range : 0.0 - 10.0 /100 WBCs. The refer ence range was not u sed to interpret th is result as normal/abnormal . NRBC x10^3 (test code See_Comment [Auto mated = 7177518838) message] The s ystem which generated this result transmitted reference range : 10*3/?L. The reference range was not used to interpret this result as normal/abnormal . GRAN MAT (NEUT) % 63.1 % (test code = 770-8) IMM GRAN % (test code 0.10 % = 9266350545) LYMPH % (test code = 26.1 % 736-9) MONO % (test code = 6.9 % 5905-5) EOS % (test code = 3.3 % 713-8) BASO % (test code = 0.5 % 706-2) GRAN MAT x10^3(ANC) 5.00 10*3/uL 1.88-7.09 (test code = 8109033815) IMM GRAN x10^3 (test 0.00-0.06 code = 4217653646) LYMPH x10^3 (test code 2.07 10*3/uL 1.32-3.29 = 731-0) MONO x10^3 (test code 0.55 10*3/uL 0.33-0.92 = 742-7) EOS x10^3 (test code = 0.26 10*3/uL 0.03-0.39 711-2) BASO x10^3 (test code 0.04 10*3/uL 0.01-0.07 = 704-7) Lab Interpretation Abnormal (test code = 46330-6) [facility]"
--- NOTE | 2023-07-30 11:54 | EDPHYS ---
Physician Documentation [facility] Name: Irma Mckeon Age: 32 yrs Sex: Female : 1990 Arrival Date: 07/30/2023 Time: 11:26 Bed 6 Private MD: ED Physician Rex Simon HPI: 07/30 11:50 This 32 yrs old Female presents to ER via Ambulatory with complaints of Rash. rn 11:50 The patient's rash thought to be caused by an unknown cause. The rash is located on the rn body diffusely. 11:51 Onset: The symptoms/episode began/occurred 1 week(s) ago. Severity of symptoms: At rn their worst the symptoms were mild in the emergency department the symptoms are unchanged. The patient has not experienced similar symptoms in the past. Patient reports itchy red rash in different parts of body, started on left leg, now on face/neck/both legs. Significant other recently had exposure to poison wendy and got better with steroids. Patient denies any previous allergies. No known exposure. Reports itching. No oral lesions or swelling. No shortness of breath or abdominal pain. Historical: - Allergies: 11:40 No Known Allergies; kc6 - PMHx: 11:40 Hypercholesterolemia; palpitations; kc6 - PSHx: 11:40 section; left knee repair; kc6 - Immunization history:: Adult Immunizations unknown. - Social history:: Smoking status: unknown. - Family history:: not pertinent. - Hospitalizations: : No recent hospitalization is reported. ROS: 11:51 Constitutional: Negative for fever, chills, and weight loss, Neck: Negative for injury, rn pain, and swelling, Cardiovascular: Negative for chest pain, palpitations, and edema, Respiratory: Negative for shortness of breath, cough, wheezing, and pleuritic chest pain, Abdomen/GI: Negative for abdominal pain, nausea, vomiting, diarrhea, and constipation, MS/Extremity: Negative for injury and deformity, Skin: Positive for itchy rash Neuro: Negative for headache, weakness, numbness, tingling, and seizure, Exam: 11:51 Constitutional: This is a well developed, well nourished patient who is awake, alert, rn and in no acute distress. Head/Face: Normocephalic, atraumatic. ENT: No oral lesions, no stridor Neck: No Meningismus. Cardiovascular: Regular rate and rhythm. No pulse deficits. Respiratory: No increased work of breathing, no retractions or nasal flaring. Skin: Warm, dry, multiple areas of urticarial lesions with overlying dry skin. No blisters. No bulla. No fluctuance. No streaking. MS/ Extremity: Pulses equal, no cyanosis. Neurovascular intact. Full, normal range of motion. Equal circumference. Neuro: Awake and alert, GCS 15 Vital Signs: 11:39 BP 126 / 85; Pulse 101; Resp 16 S; Pulse Ox 100% on R/A; Weight 56.7 kg (R); Height 5 kc6 ft. 2 in. (R); 11:39 Body Mass Index 22.86 (56.70 kg, 157.48 cm) [facility] MDM: 11:30 Patient medically screened. rn 11:51 Differential diagnosis: allergic reaction, Cellulitis. Data reviewed: vital signs, rn nurses notes, and as a result, I will discharge patient. Counseling: I had a detailed discussion with the patient and/or guardian regarding the historical points, exam findings, and any diagnostic results supporting the discharge/admit diagnosis, the need for outpatient follow up, to return to the emergency department if symptoms worsen or persist or if there are any questions or concerns that arise at home. Special discussion: I discussed with the patient/guardian in detail that at this point there is no indication for admission to the hospital. It is understood, however, that if the symptoms persist or worsen the patient needs to return immediately for re-evaluation. Administered Medications: 12:04 Drug: predniSONE PO 60 mg PO once Route: PO; [facility] 12:05 Follow up: Response: No adverse reaction [facility] 12:04 Drug: hydrOXYzine PO 50 mg PO once Route: PO; [facility] 12:05 Follow up: Response: No adverse reaction [facility] Disposition Summary: 07/30/23 11:53 Discharge Ordered Notes: Location: Home rn Problem: new rn Symptoms: have improved rn Condition: Stable rn Diagnosis - Rash and other nonspecific skin eruption rn Followup: rn - With: Private Physician - When: As needed - Reason: Recheck today's complaints, Re-evaluation by your physician Discharge Instructions: - Discharge Summary Sheet rn - Rash, Adult rn Forms: - Medication Reconciliation Form rn - Thank You Letter rn - Antibiotic manager furniture - Prescription Opioid Use rn - Patient Portal Instructions rn - Leadership Thank You Letter rn Prescriptions: - Hydroxyzine HCl 50 mg Oral Tablet - take 1 tablet ORAL route every 8 hours As needed; 20 tablet; Refills: 0, rn Product Selection Permitted - Prednisone 20 mg Oral tablet - take 3 tablets ORAL route once daily for 6 days; 18 tablet; Refills: 0, Product rn Selection Permitted - Bactrim DS 800-160 mg Oral Tablet - take 1 tablet ORAL route every 12 hours for 10 days; 20 tablet; Refills: 0, rn Product Selection Permitted Signatures: Rex Simon MD MD rn Campbell, Kaitlyn, RN RN kc6
--- NOTE | 2023-07-30 11:54 | ER ---
Nurse's Notes [facility] Name: Irma Mckeon Age: 32 yrs Sex: Female : 1990 Arrival Date: 07/30/2023 Time: 11:26 Bed 6 Private MD: Diagnosis: Rash and other nonspecific skin eruption Presentation: 07/30 11:39 Chief complaint: Patient states: rash to her left leg, back, and face x1 week with kc6 cough, sore throat, and congestions x2 days. denies exposure to anything or anyone sick. Coronavirus screen: At this time, the client does not indicate any symptoms associated with coronavirus-19. Ebola Screen: No symptoms or risks identified at this time. Initial Sepsis Screen: Does the patient meet any 2 criteria? No. Patient's initial sepsis screen is negative. Does the patient have a suspected source of infection? No. Patient's initial sepsis screen is negative. Risk Assessment: Do you want to hurt yourself or someone else? Patient reports no desire to harm self or others. Onset of symptoms was July 30, 2023. 11:39 Method Of Arrival: Ambulatory [facility] 11:39 Acuity: ELLEN 4 kc6 Triage Assessment: 11:40 General: Appears in no apparent distress. comfortable, Behavior is calm, cooperative, kc6 appropriate for age. Pain: Denies pain. EENT: No signs and/or symptoms were reported regarding the EENT system. Neuro: Level of Consciousness is awake, alert, obeys commands, Oriented to person, place, time, situation, Appropriate for age. Cardiovascular: Capillary refill < 3 seconds. Respiratory: Airway is patent Trachea midline Respiratory effort is even, unlabored, Respiratory pattern is regular, symmetrical. GI: No signs and/or symptoms were reported involving the gastrointestinal system. : No signs and/or symptoms were reported regarding the genitourinary system. Derm: Rash noted that is itchy, red, raised, on face, back and left leg. Musculoskeletal: No signs and/or symptoms reported regarding the musculoskeletal system. Circulation, motion, and sensation intact. Capillary refill < 3 seconds, Range of motion: intact in all extremities. Historical: - Allergies: 11:40 No Known Allergies; kc6 - PMHx: 11:40 Hypercholesterolemia; palpitations; kc6 - PSHx: 11:40 section; left knee repair; kc6 - Immunization history:: Adult Immunizations unknown. - Social history:: Smoking status: unknown. - Family history:: not pertinent. - Hospitalizations: : No recent hospitalization is reported. Screenin:42 [facility] ED Fall Risk Assessment (Adult) History of falling in the last 3 months, kc6 including since admission No falls in past 3 months (0 pts) Confusion or Disorientation No (0 pts) Intoxicated or Sedated No (0 pts) Impaired Gait No (0 pts) Mobility Assist Device Used No (0 pt) Altered Elimination No (0 pt) Score/Fall Risk Level 0 - 2 = Low Risk. Abuse screen: Denies threats or abuse. Denies injuries from another. Nutritional screening: No deficits noted. Tuberculosis screening: No symptoms or risk factors identified. Assessment: 11:42 Reassessment: please see triage assessment. kc6 Vital Signs: 11:39 BP 126 / 85; Pulse 101; Resp 16 S; Pulse Ox 100% on R/A; Weight 56.7 kg (R); Height 5 kc6 ft. 2 in. (R); 11:39 Body Mass Index 22.86 (56.70 kg, 157.48 cm) kc6 ED Course: 11:28 Patient arrived in ED. rg4 11:30 Rex Simon MD is Attending Physician. rn 11:40 Triage completed. kc6 11:40 Arm band placed on. kc6 11:42 Edwina Zuniga, KEVAN is Primary Nurse. kc6 11:42 Patient has correct armband on for positive identification. Placed in gown. Bed in low kc6 position. Call light in reach. Side rails up X 1. Adult w/ patient. Client placed on continuous cardiac and pulse oximetry monitoring. NIBP monitoring applied. 11:42 Patient maintains SpO2 saturation greater than 95% on room air. kc6 12:04 No provider procedures requiring assistance completed. Patient did not have IV access kc6 during this emergency room visit. Administered Medications: 12:04 Drug: predniSONE PO 60 mg PO once Route: PO; kc6 12:05 Follow up: Response: No adverse reaction kc6 12:04 Drug: hydrOXYzine PO 50 mg PO once Route: PO; kc6 12:05 Follow up: Response: No adverse reaction kc6 Medication: 12:05 VIS not applicable for this client. kc6 Outcome: 11:53 Discharge ordered by . rn 12:04 Discharged to home ambulatory, with significant other, kc6 12:04 Condition: good 12:04 Discharge instructions given to patient, Instructed on discharge instructions, follow up and referral plans. medication usage, Demonstrated understanding of instructions, follow-up care, medications, Prescriptions given X 3, 12:05 Patient left the ED. kc6 Signatures: Rex Simon MD MD rn Garcia, Rubi rg4 Edwina Zuniga RN RN kc6
[2023-07-30] MEDS ORDERED: predniSONE 20 MG TAB ONE (12:14)
[2023-07-30] MEDS ORDERED: hydrOXYzine HCL 25 MG TAB ONE (12:14)
[2023-07-30 12:27] VITALS: BP 126/85; O2SAT 100
== END 2023-07-30 12:05 | disposition home or self-care (01) ==
LOC: ER 11:26
DX: R21 Rash and other nonspecific skin eruption (principal)
CPT/HCPCS: 99284; J7512

== ENCOUNTER 2023-12-12 19:13 | Emergency (ER) | payer OTHER, SELFPAY ==
--- OUTSIDE RECORDS SUMMARY | 2023-12-12 19:17 | XMS REPORT | Continuity of Care Document ---
Author Name Unknown Address [address] [facility] [address] [place] [address] [facility] Address [address] [facility] [address] [place] [address] Care Team Providers [employer] Paraprofessional Name Role Phone SANGITA ANKITA Primary Care Physician UnavailENRIQUE Adrian Attending Clinician Unavailable Enrique Caceres MD Attending Clinician [phone] Doctor Unassigned, [place] Attending Clinician U janet Mccollum MD, Sendmilind K.HIsmael Attending Clinician [phone] PRINCESS SUAREZ Attending Clinician Unavailable Princess Suarez MD Attending Clinician [phone] Allergies, Adverse Reactions, Alerts Allergy Name Allergy Type Status Severity Reaction(s) Onset Date Inactive Date Treating Clinician Comments Source NO KNOWN ALLERGIE S Drug Class Active [facility] Social History Social Habit Start Date Stop Date Quantity Comments Source History of tobacco use Cigarette Smoker [facility] Tobacco use and exposure 2023-03-08 00:00:00 2023-03-08 00:00:00 Smokeless tobacco non-user [facility] Sex Assigned At 1990 00:00:00 1990 00:00:00 [facility] Smoking Status Start Date Stop Date Source Tobacco smoking consumption unknown [facility] Smokes tobacco daily 2023-03-08 00:00:00 [facility] Medications Ordered Medication Name Filled Medication Name Start Date Stop Date Current Medication? Ordering Clinician Indication Dosage Frequency Signature (SIG) Comments Components Source KCL 20 mEq/15 mL solution 40 mEq 02-19 08:30: 00 02-19 08:01 :00 No 40meq 40 mEq, Oral, ONCE, 1 dose, On Wed02/19/23 at 0330, [facility] Vital Signs Vital Name Observation Time Observation Value Comments S jeanne Systolic blood pressure 2023-03-08 14:36:00 117 mm[Hg] [facility] Diastolic blood pressure 2023-03-08 14:36:00 83 mm[Hg] [facility] Heart rate 2023-03-08 14:36:00 76 /min [facility] Body temperature 2023-03-08 14:36:[address] [facility] Respiratory rate 2023-03-08 14:36:00 17 /min [facility] Body height 2023-03-08 14:36:00 154.9 cm [facility] Body weight 2023-03-08 14:36:00 54.885 kg [facility] BMI 2023-03-08 14:36:00 22.86 kg/m2 [facility] Oxygen saturation in Arterial blood by Pulse oximetry 2023-03-08 14:36:00 98 /min [facility] Systolic blood pressure 2023-02-19 07:00:00 111 mm[Hg] [facility] Diastolic blood pressure 2023-02-19 07:00:00 71 mm[Hg] [facility] Heart rate 2023-02-19 07:00:00 73 /min [facility] Respiratory rate 2023-02-19 07:00:00 19 /min [facility] Oxygen saturation in Arterial blood by Pulse oximetry 2023-02-19 07:00:00 93 /min [facility] Body temperature 2023-02-19 05:34:[address] [facility] Body height 2023-02-19 05:34:00 154.9 cm [facility] Body weight 2023-02-19 05:34:00 56.7 kg [facility] BMI 2023-02-19 05:34:00 23.62 kg/m2 [facility] Procedures Procedure Date / Time Performed Performing Clinician Source CONSENT/REFUSAL FOR DIAGNOSIS AND TREATMENT 2023-03-08 14:16:27 Doctor Unassigned, [place] [facility] EKG-12 LEAD 2023-02-19 07:34:53 Princess Suarez [facility] LIPASE 2023-02-19 05:43:00 Princess Suarez [facility] TROPONIN I 2023-02-19 05:43:00 Princess Suarez [facility] THYROID STIMULATING HORMONE 2023-02-19 05:43:[address] [facility] COMP. METABOLIC PANEL (61361) 2023-02-19 05:43:[address] [facility] CBC WITH DIFF 2023-02-19 05:43:00 Princess Suarez [facility] URINALYSIS 2023-02-19 05:43:00 Princess Suarez [facility] Encounters Start Date/Time End Date/Time Encounter Type Admission Type Attending [facility] Care Department Encounter ID Source 2023 13:10:11 2023 13:10:11 Outpatient S[facility] SFA [id number] Norman Anderson Shyam 2023-12-02 13:58:12 2023-12-02 13:58:12 Outpatient SFA SFA [id number] Norman Anderson Shyam 2023-11-29 13:03:00 2023-11-29 13:03:00 Outpatient SFA SFA [id number] Norman Anderson Shyam 2023-11-25 09:59:40 2023-11-25 09:59:40 Outpatient SFA SFA [id number] Norman Anderson Shyam 2023-11-16 10:36:05 2023-11-16 10:36:05 Outpatient SFA SFA [id number] Norman Anderson Shyam 2023-10-19 11:48:58 2023-10-19 11:48:58 Outpatient SFA SFA [id number] Norman Anderson Shyam 2023-06-01 13:42:14 2023-06-01 13:42:14 [id number] Norman Howe 2023-05-22 14:06:34 2023-05-22 14:06:34 Outpatient [place] [id number] Norman Howe 2023-04-20 10:20:16 2023-04-20 10:20:16 Outpatient S[facility] [id number] Norman Howe 2023-03-08 09:40:00 2023-03-08 09:52:30 [facility] [id number] [facility] 2023-03-08 09:40:00 2023-03-08 09:52:30 Office Visit [facility] 1..840.114 350.1.13.10 4.2.7.2.686 [id number] [facility] 2023-03-08 00:00:00 2023-03-08 00:00:00 Orders Only Doctor Unassigned, [place] [facility] 1.840.114 350.1.13.10 4.2.7.2.686 [id number] [facility] 2023-02-22 00:00:00 2023-02-22 00:00:00 Telephone Joceline Mccollum [facility] 1..840.114 350.1.13.10 4.2.7.2.686 [id number] [facility] 2023-02-19 00:39:00 2023-02-19 03:09:00 Emergency X PRINCESS SUAREZ [facility] ERT [id number] [facility] 2023-02-19 00:39:00 2023-02-19 03:09:00 Emergency Princess Suarez S [facility] 1.840.114 350.1.13.10 4.2.7.2.686 [id number] [facility] Results Test Description Test Time Test Comments Results Result Co mments Source HCG, [id number] 06:38:37* Test Item Value Reference Range Interpretation Comme [facility] HCG, QUANTITATIVE (test code = 2506) 7334 MIU/ML SEE BELOW EXPEC BHARTI VALUES FOR HCG GST.AGE UNITS RANGE GST. AGE UNITS RANGE3 WEEKS MIU/ML 6-71 10 WEEKS MIU/ML 46,509-186,9774 WEEKS MIU/ML 10-750 12 WEEKS MIU/ML 27,832-210,6125 WEEKS MIU/ML 217-7,138 14 WEEKS MIU/ML 13,950-62,5306 WEEKS MIU/ML 158-31,795 15 WEEKS MIU/ML 12,039-70,9717 WEEKS MIU/ML 3,697-163,563 16 WEEKS MIU/ML 9,040-56,4518 WEEKS MIU/ML 32,065-149,571 17 WEEKS MIU/ML 8,175-55,8689 WEEKS MIU/ML 63,803-151,410 18 WEEKS MIU/ML 8,099-58,176MALES and NON- FEMALES . . . . . . . . MIU/ML [id number] FEMALES . . . . . . . . . . . . MIU/ML <=7 UNLESS OTHERWISE INDICATED, ALL TESTING PERFORMED AT [facility] [address] [place] [address] GUEST EXPERIENCE SPECIALIST: KAROL OBREGON M.D. CLIA NUMBER [id number] [facility] [place]. [id number] HCG, [id number] 06:34:59* Test Item Value Reference Range Interpretation Comme [facility] HCG, QUANTITATIVE (test code = 2506) 99632 MIU/ML SEE BELOW EXPEC BHARTI VALUES FOR HCG GST.AGE UNITS RANGE GST. AGE UNITS RANGE3 WEEKS MIU/ML 6-71 10 WEEKS MIU/ML 46,509-186,9774 WEEKS MIU/ML 10-750 12 WEEKS MIU/ML 27,832-210,6125 WEEKS MIU/ML 217-7,138 14 WEEKS MIU/ML 13,950-62,5306 WEEKS MIU/ML 158-31,795 15 WEEKS MIU/ML 12,039-70,9717 WEEKS MIU/ML 3,697-163,563 16 WEEKS MIU/ML 9,040-56,4518 WEEKS MIU/ML 32,065-149,571 17 WEEKS MIU/ML 8,175-55,8689 WEEKS MIU/ML 63,803-151,410 18 WEEKS MIU/ML 8,099-58,176MALES and NON- FEMALES . . . . . . . . MIU/ML [id number] FEMALES . . . . . . . . . . . . MIU/ML <=7 UNLESS OTHERWISE INDICATED, ALL TESTING PERFORMED AT [facility] [address] [place] [address] GUEST EXPERIENCE SPECIALIST: KAROL OBREGON M.D. [place] NUMBER [id number] [facility] [place]. [id number] HCG, [id number] 06:37:10* Test Item Value Reference Range Interpretation Comme nts HCG, QUANTITATIVE (test code = 2506) 20818 MIU/ML SEE BELOW EXPEC BHARTI VALUES FOR HCG GST.AGE UNITS RANGE GST. AGE UNITS RANGE3 WEEKS MIU/ML 6-71 10 WEEKS MIU/ML 46,509-186,9774 WEEKS MIU/ML 10-750 12 WEEKS MIU/ML 27,832-210,6125 WEEKS MIU/ML 217-7,138 14 WEEKS MIU/ML 13,950-62,5306 WEEKS MIU/ML 158-31,795 15 WEEKS MIU/ML 12,039-70,9717 WEEKS MIU/ML 3,697-163,563 16 WEEKS MIU/ML 9,040-56,4518 WEEKS MIU/ML 32,065-149,571 17 WEEKS MIU/ML 8,175-55,8689 WEEKS MIU/ML 63,803-151,410 18 WEEKS MIU/ML 8,099-58,176MALES and NON- FEMALES . . . . . . . . MIU/ML [id number] FEMALES . . . . . . . . . . . . MIU/ML <=7 UNLESS OTHERWISE INDICATED, ALL TESTING PERFORMED AT [facility] [address] [place] [address] GUEST EXPERIENCE SPECIALIST: KAROL OBREGON M.D. CLIA NUMBER [id number] [place]. [id number] CULTURE, [id number] 10:08:14SPECIMEN NUMBER: [id number] CULTURE, URINE SPECIMEN NUMBER: [id number] SPECIMEN COMMENT: URINE SOURCE: URINE REPORT STATUS: FINAL FINAL REPORT: 11/18/2023 50-100,000 CFU/ML MIXED MICROBIAL POPULATION GA ESENT, NO PREDOMINATING ORGANISMS;PROBABLE CONTAMINANTS.CT/NG, NAAT, URINE 2023-11-17 18:02:14* Test Item Value Reference Range Interpretation Comme nts CHLAMYDIA, NAAT, URINE (test code = 67777) NEGATIVE NEGATIVE Testing is perfo rmed with Mal SUDHIR 6800/8800 systems usingreal-time polymerase chain reaction (PCR) method. A negative result does not exclude low level infection, specimensampling error, or collection error. GONORRHEA, NAAT, URINE (test code = 45415) NEGATIVE NEGATIVE Testing is perfo rmed with Mal SUDHIR 6800/8800 systems usingreal-time polymerase chain reaction (PCR) method. A negative result does not exclude low level infection, specimensampling error, or collection error. HEMOGLOBIN [id number] 14:26:55* Test Item Value Reference Range Interpretation Comme nts HEMOGLOBIN A1 (test code = 2575) 97.3 % 95.0-98.5 HEMOGLOBIN A2 (test code = 2576) 2.7 % 1.6-3.7 HEMOGLOBIN F () (test code = 2722) 0.0 % 0.0-2.0 HEMOGLOBIN S (test code = 2724) NONE % NONE DETECTED HEMOGLOBIN C (test code = 2726) NONE % NONE DETECTED OTHER HEMOGLOBIN VARIANT (test code = 38611) NONE DETEC % NONE DETECTED PATHOLOGIST'S INTERPRETATION (test code = 2577) (NOTE) NO ABNORMAL HEMOGLOBINS IDENTIFIED. KAROL OBREGON M.D. VARICELLA ZOSTER [id number] 13:17:04* Test Item Value Reference Range Interpretation Comme nts VARICELLA ZOSTER IgG (test code = 61475) 132 INDEX SEE BELOW L INTERPRETATI ON VZV IgG NEGATIVE . . . . . . . . . . . . INDEX <135 EQUIVOCAL. . . . . . . . . . . . INDEX 135-164 NOTE: CONSIDER RETESTING IN A CLINICALLY SUITABLE PERIOD OF TIME, NO SOONER THAN 1-2 WEEKS. POSITIVE . . . . . . . . . . . . INDEX >=165 DRUG ABUSE SCREEN 10 REFLEX [id number] 05:07:21* Test Item Value Reference Range Interpretation Comme nts AMPHETAMINES (test code = 3201) NEGATIVE NEGATIVE BARBITURATES (test code = 3202) NEGATIVE NEGATIVE BENZODIAZEPINES (test code = 3203) NEGATIVE NEGATIVE CANNABINOIDS (test code = 3204) NEGATIVE NEGATIVE COCAINE METABOLITE (test code = 3205) NEGATIVE NEGATIVE OPIATES (test code = 3209) NEGATIVE NEGATIVE OXYCODONE (test code = 33860) NEGATIVE NEGATIVE PHENCYCLIDINE (test code = 3210) NEGATIVE NEGATIVE METHADONE (test code = 3207) NEGATIVE NEGATIVE BUPRENORPHINE (test code = 33891) NEGATIVE NEGATIVE SOURCE (test code = 658781) URINE SEE BELOW FO R THRESHOLDS AND IMPORTANT METHOD NOTES ANALYTE SCREENING CUTOFF CONFIRMATORY CUTOFF AMPHETAMINES 500 NG/ML 100 NG/MLBARBITURATES 200 NG/ML 100 NG/MLBENZODIAZEPINES 200 NG/ML 100 NG/MLCANNABINOIDS (THC) 20 NG/ML 15 NG/MLCOCAINE METABOLITES 150 NG/ML 100 NG/MLOPIATE METABOLITES 300 NG/ML 100 NG/MLOXYCODONE 100 NG/ML 100 NG/MLPHENCYCLIDINE (PCP) 25 NG/ML 25 NG/MLMETHADONE 300 NG/ML 100 NG/MLBUPRENORPHINE 5 NG/ML 5 NG/ML NOTE: Screening methodology is qualitative Enzyme Immunoassay.The screening method may be less sensitive for certain medicationsincluding clonazepam and lorazepam in the benzodiazepine assay andtramadol or fentanyl in the opiate assay, amongst others. Patientcompliance, hydration status, timing and dose of medications, drugabsorption and specimen quality may affect screening assay.For clinical discrepancies, consider directed testing for specificcompounds or contact the laboratory within specimen stability toforward for confirmatory testing. This test is specified for medicalpurposes only. It is not valid for forensic use. UNLESS OTHERWISE INDICATED, ALL TESTING PERFORMED AT [facility] [address] [place] [address] GUEST EXPERIENCE SPECIALIST: KAROL OBREGON M.D. [place] NUMBER [id number] [facility] [place]. [id number] OBSTETRIC PANEL + [id number] 04:24:11* Test Item Value Reference Range Interpretation Comme nts WBC (test code = 1001) 9.0 K/UL 3.5-11.0 RBC (test code = 1002) 3.97 M/UL 3.80-5.40 HEMOGLOBIN (test code = 1003) 12.6 G/DL 11.5-15.5 HEMATOCRIT (test code = 1004) 35.7 % 34.0-45.0 MCV (test code = 1005) 89.9 fL 80.0-99.0 MCH (test code = 1006) 31.7 PG 25.0-33.0 MCHC (test code = 1007) 35.3 G/DL 31.0-36.0 RDW (test code = 1038) 12.3 % 11.5-15.0 NEUTROPHILS (test code = 1008) 71.3 % LYMPHOCYTES (test code = 1010) 17.5 % MONOCYTES (test code = 1011) 8.0 % EOSINOPHILS (test code = 1012) 2.7 % BASOPHILS (test code = 1013) 0.3 % IMMATURE GRANULOCYTES (test code = 1036) 0.2 % NUCLEATED RBCS (test code = 1065) 0.0 /100 WBC'S See_Comment [Automated me ssage] The system which generated this result transmitted reference range: 0.0. The reference range was not used to interpret this result as normal/abnormal. PLATELET COUNT (test code = 1015) 295 K/UL 130-400 ABSOLUTE NEUTROPHILS (test code = 1066) 6.41 K/UL 1.50-7.50 ABSOLUTE LYMPHOCYTES (test code = 1067) 1.57 K/UL 1.00-4.00 ABSOLUTE MONOCYTES (test code = 1068) 0.72 K/UL 0.20-1.00 ABSOLUTE EOSINOPHILS (test code = 1040) 0.24 K/UL 0.00-0.50 ABSOLUTE BASOPHILS (test code = 1069) 0.03 K/UL 0.00-0.20 ABS IMMATURE GRANULOCYTES (test code = 1020) 0.02 K/UL 0.00-0.10 ABS NUCLEATED RBCS (test code = 69273) 0.00 K/UL 0.00-0.11 BLOOD TYPE AND RH (test code = 3901) O POSITIVE A HISTORICAL RECORD CHECK FOR PREVIOUS RESULTS IS NOT PERFORMED.THESE RESULTS SHOULD BE CORRELATED WITH RESULTS OF PRIOR BLOODTYPING AND ANTIBODY SCREEN STUDIES. ANTIBODY SCREEN (test code = 3902) NEGATIVE NEGATIVE A HISTORICAL RECORD CHECK FOR PREVIOUS RESULTS IS NOT PERFORMED.THESE RESULTS SHOULD BE CORRELATED WITH RESULTS OF PRIOR BLOODTYPING AND ANTIBODY SCREEN STUDIES. RUBELLA ANTIBODY SCREEN (test code = 4600) 18 IU/ML SEE BELOW RUBELLA IgG INTERP (test code = 46918) REACTIVE REACTIVE INTERPRETATI ON UNITS RANGE NON-REACTIVE/NON-IMM UNE IU/ML <10 REACTIVE/IMMUNE IU/ML >=10 HEPATITIS B SURF AG (test code = 2739) NON-REACTIVE NON-REACTIVE RPR (test code = 22061) NON-REACTIVE NON-REACTIVE RPR TITER (test code = 3500) NOT INDIC. TITER NOT INDIC. HIV 1/2 4TH GEN, RFLX CONF (test code = 3514) NON-REACTIVE NON-REACTIVE HEPATITIS C REFLEX [id number] 04:24:11* Test Item Value Reference Range Interpretation Comme nts HEPATITIS C ANTIBODY (test c ode = 4675) NON-REACTIVE NON-REACTIVE PAP TEST, THINPREP, [id number] 11:36:48* Test Item Value Reference Range Interpretation Comme nts SOURCE: (test code = 8001) Cervical/Endoce rvical SLIDES: (test code = 8011) 1 LMP: (test code = 8021) NOT GIVEN SPECIMEN ADEQUACY: (test code = 80671) (NOTE) Satisfactory for evaluation. Endocervical cells/transformation zone component present. INTERPRETATION: (test code = 01342) NILM/NO EPITH. ABNORMALITY;SEE BELOW --- - NEGATIVE FOR INTRAEPITHELIAL LESION OR MALIGNANCY (NILM) ---- OTHER COMMENTS: (test code = 8081) (NOTE) Shift in luciana suggestive of bacterial vaginosis. AGRICULTURAL PRODUCTION ENGINEER : (test code = 8101) MED Ayala(ASCP)IA C QC TECHNOLOGIST: (test code = 8111) MED Benitez(ASCP)IAC LOCATION: (test code = 72125) (NOTE) Specimens proces sed and interpreted at [facility], [address] [place] [address], , CLIA: [id number] CPT: (test code = 8140) (NOTE) [address] UNLESS OTH ERWISE INDICATED, COMPUTER AIDED AND AGRICULTURAL PRODUCTION ENGINEER SCREENING PERFORMED. The Pap test is a screening test with an inherent, but low probability of error. Your patient should be reminded to consult you immediately if she experiences any suspicious signs or symptoms, regardless of her Pap test result. An alternate report format containing images or consolidated prior Pap history is available as applicable. HPV HIGH RISK WITH GENOTYPE, [id number] 17:11:24* Test Item Value Reference Range Interpretation Comme nts HPV HIGH RISK INTERP (test code = 69267) POSITIVE NEGATIVE A HPV 16 (test code = 74590) NEGATIVE HPV 18 (test code = 54023) NEGATIVE HPV, HR, OTHER GENOTYPES (test code = 35051) POSITIVE A Testing methodol ogy is real-time PCR utilizing hydrolysis probes with the Mal Sudhir 4800 system. The test individually detects genotypes 16 and 18, as well as the other 12 high risk types (31,33,35,39,45,51,52,56 ,58,59,66,68). The expected result is negative. A negative result does not rule out the presence of HPV not included in the genotype set, a low level of infection or specimen sampling error. UNLESS OTHERWISE INDICATED, ALL TESTING PERFORMED AT [facility] [address] [place] [address] GUEST EXPERIENCE SPECIALIST: KAROL OBREGON M.D. CLIA NUMBER [id number] [place] [id number] VAGINAL PATHOGENS DNA [id number] 15:51:26* Test Item Value Reference Range Interpretation Comme nts LINDSEY SPECIES (test code = 50285) NEGATIVE NEGATIVE G. VAGINALIS (test code = 63583) POSITIVE NEGATIVE A T. VAGINALIS (test code = 42627) NEGATIVE NEGATIVE Note: The FAD ? IO irEstately VPIII Microbial Identification Testis a DNA probe test intended for use in the detectionand identification of Lindsey species, Gardnerellavaginalis and Trichomonas vaginalis nucleic acid. UNLESS OTHERWISE INDICATED, ALL TESTING PERFORMED AT [facility] [address] [place] [address] GUEST EXPERIENCE SPECIALIST: KAROL OBREGON M.D. CLIA NUMBER [id number] [place] [id number] THYROID STIMULATING [id number] 07:05:10* Test Item Value Reference Range Interpretation Comme nts TSH (test code = 7380058860) 4.58 See_Comment [Automated [employer]] The system which generated this result transmitted reference range: 0.45 - 4.70 mIU/L. The reference range was not used to interpret this result as normal/abnormal. Lab Interpretation (test code = 83465-6) [facility] [id number] 06:46:25* Test Item Value Reference Range Interpretation Comme nts TROPONIN I (test code = 2940464605) 0.004 ng/mL <=0.034 SWAPNA (test code = SWAPNA) Reference (Normal) [...] to patient's use of biotin. Lab Interpretation (test code = 04321-5) Normal [facility]OL[facility] (46221)2023-02-19 06:34:25* Test Item Value Reference Range Interpretation Comme nts NA (test code = 2612111526) 140 mmol/L 135-145 K (test code = 3091920445) 3.4 mmol/L 3.5-5.0 L CL (test code = 4781796549) 108 mmol/L 98-108 CO2 TOTAL (test code = 8251719070) 22 mmol/L 23-31 L AGAP (test code = 8134070732) 10 2-16 BUN (test code = 5206195768) 16 mg/dL 7-23 GLUCOSE (test code = 7779030604) 163 mg/dL 70-110 H CREATININE (test code = 6592972902) 0.57 mg/dL 0.50-1.04 TOTAL BILI (test code = 7459203856) 0.4 mg/dL 0.1-1.1 CALCIUM (test code = 6519384612) 9.6 mg/dL 8.6-10.6 T PROTEIN (test code = 1787435881) 7.6 g/dL 6.3-8.2 ALBUMIN (test code = 4573789487) 4.9 g/dL 3.5-5.0 ALK PHOS (test code = 3311483782) 56 U/L 34-122 ALTv (test code = 1742-6) 22 U/L 5-35 AST(SGOT) (test code = 4115209331) 26 U/L 13-40 eGFR (test code = 4323293385) 124.5 mL/min/1.73m2 SWAPNA (test code = SWAPNA) Association of [...] or abnormalities in imaging tests). Lab Interpretation (test code = 91117-8) [facility]normal [facility], [id number] 06:34:05* Test Item Value Reference Range Interpretation Comme nts LIPASE (test code = 5967519433) 81 U/L 0-220 Lab Interpretation (test cod e = 12391-1) Normal [facility] [id number] 06:18:21* Test Item Value Reference Range Interpretation Comme nts WBC (test code = 6690-2) 7.93 See_Comment [Automated [employer]] The system which generated this result transmitted reference range: 4.30 - 11.10 10*3/?L. The reference range was not used to interpret this result as normal/abnormal. RBC (test code = 789-8) 3.94 See_Comment [Automated [employer]] The system which generated this result transmitted reference range: 3.93 - 5.25 10*6/?L. The reference range was not used to interpret this result as normal/abnormal. HGB (test code = 718-7) 12.8 g/dL 11.6-15.0 HCT (test code = 4544-3) 35.2 % 35.7-45.2 L MCV (test code = 787-2) 89.3 fL 80.6-95.5 MCH (test code = 785-6) 32.5 pg 25.9-32.8 MCHC (test code = 786-4) 36.4 g/dL 31.6-35.1 H RDW-SD (test code = 74620-2) 39.3 fL 39.0-49.9 RDW-CV (test code = 788-0) 12.0 % 12.0-15.5 PLT (test code = 777-3) 241 See_Comment [Automated messa ge] The system which generated this result transmitted reference range: 166 - 358 10*3/?L. The reference range was not used to interpret this result as normal/abnormal. MPV (test code = 04102-5) 10.5 fL 9.5-12.9 NRBC/100 WBC (test code = 1330547268) 0.0 See_Comment [Automated [employer] ssage] The system which generated this result transmitted reference range: 0.0 - 10.0 /100 WBCs. The reference range was not used to interpret this result as normal/abnormal. NRBC x10^3 (test code = 5087875831) See_Comment [Automated messa ge] The system which generated this result transmitted reference range: 10*3/?L. The reference range was not used to interpret this result as normal/abnormal. GRAN MAT (NEUT) % (test code = 770-8) 63.1 % IMM GRAN % (test code = 5325798021) 0.10 % LYMPH % (test code = 736-9) 26.1 % MONO % (test code = 5905-5) 6.9 % EOS % (test code = 713-8) 3.3 % BASO % (test code = 706-2) 0.5 % GRAN MAT x10^3(ANC) (test code = 2942886290) 5.00 10*3/uL 1.88-7.09 IMM GRAN x10^3 (test code = 8176329777) 0.00-0.06 LYMPH x10^3 (test code = 731-0) 2.07 10*3/uL 1.32-3.29 MONO x10^3 (test code = 742-7) 0.55 10*3/uL 0.33-0.92 EOS x10^3 (test code = 711-2) 0.26 10*3/uL 0.03-0.39 BASO x10^3 (test code = 704-7) 0.04 10*3/uL 0.01-0.07 Lab Interpretation (test code = 39096-8) Abnormal [facility]"
[2023-12-12 20:06] LABS: Absolute Eosinophils 0.2 K/uL (0-0.5); Absolute Lymphocytes (CBC) 1.7 K/uL (0.7-4.9); Absolute Monocytes 0.6 K/uL (0.1-1.3); Absolute Neutrophil 4.8 K/uL (1.8-8.0); Basophils % 0.4 % (0-1.3); Eosinophils % 3.2 % (0-4.4); Hematocrit 32.1 % (36.0-45.0); Hemoglobin 11.4 g/dL (12.0-15.0); Lymphocytes % 22.5 % (15.3-44.8); MCH 32.2 pg (27.0-35.0); MCHC 35.6 g/dL (32.0-36.0); MCV 90.6 fL (80-100); MPV 7.9 fL (7.6-11.3); Monocytes % 8.7 % (3.3-12.3); Neutrophils % 65.2 % (41.7-73.7); Platelets 275 thou/uL (152-406); RBC Red Blood Cell Count 3.54 M/uL (3.86-4.86); Red Cell Distribution Width 12.9 % (12.1-15.2)
[2023-12-12] MEDS ORDERED: ACETAMINOPHEN 500 MG TAB ONE (20:34)
[2023-12-12 20:49] LABS: ALT/SGPT 52 U/L (13-56); AST/SGOT 40 U/L (15-37); Albumin 3.7 g/dL (3.4-5.0); Albumin/Globulin Ratio 1.1 (1.1-1.8); Alkaline Phosphatase 56 U/L (45-117); Anion Gap 10.6 mEq/L (5.0-15.0); BUN Blood Urea Nitrogen 14 mg/dL (7-18); Bicarbonate 25 mEq/L (21-32); Bilirubin Total 0.4 mg/dL (0.2-1.0); Globulin 3.5 g/dL (2.3-3.5); Glomerular Filtration Rate 121 ml/min (=/>90); Glucose Level 103 mg/dL (74-106); HCG, Quantitative 2012 mIU/mL (1-3); Potassium 3.6 mEq/L (3.5-5.1); Protein, Total 7.2 g/dL (6.4-8.2); Sodium Level 138 mEq/L (136-145)
[2023-12-12 20:50] LABS: Bilirubin Direct < 0.1 mg/dL (0-0.2); Bilirubin Indirect, Calculated ND mg/dL (0.2-0.8)
[2023-12-12 20:57] LABS: Specific Gravity 1.013 (1.005-1.030)
[2023-12-12 20:59] LABS: Specific Gravity 1.013 (1.005-1.030); Sqamous Epithelial None Seen /HPF (None Seen); Urine Bacteria None Seen /HPF (<20); Urine Bilirubin NEGATIVE (Negative); Urine Blood 3+ (OVER) (Negative); Urine Clarity Extremely Turbid (Clear); Urine Culture Reflex Order REFLEXED; Urine Glucose NEGATIVE (Negative); Urine Ketones NEGATIVE (Negative); Urine Microscopic Reflex YN ORDER UMIC; Urine Nitrite NEGATIVE (Negative); Urine Protein 2+ (Negative); Urine RBC >50 /HPF (None Seen); Urine Urobilinogen Normal (Normal); Urine WBC 20-50 /HPF (<5)
[2023-12-12 21:17] LABS: Urine Color Red (Yellow)
--- NOTE | 2023-12-12 23:08 | EDPHYS ---
Physician Documentation [facility] Name: Irma Mckeon Age: 33 yrs Sex: Female : 1990 Arrival Date: 12/12/2023 Time: 19:13 Bed 8 Private MD: ED Physician Rex Simon HPI: 12/11 20:29 This 33 yrs old Female presents to ER via Ambulatory with complaints of rn Vaginal Bleeding, + Preg <12wks, Vaginal Pain, Leg Swelling, Feet Swelling. 20:29 The patient presents to the emergency department with Swelling. The estimated rn gestational age is 12 weeks. course: care: at a clinic, Ultrasound: the patient had an ultrasound, Risk/complications: Diagnosed with miscarriage. Associated signs and symptoms: Pertinent positives: vaginal bleeding, Pertinent negatives: abdominal pain, chest pain, fever, seizure, shortness of breath, vaginal discharge. The patient has not experienced similar symptoms in the past. The patient has been recently seen by a physician:. Patient reports supposed to be approximately 12 weeks , had an ultrasound recently and told no heartbeat and to expect miscarriage, bleeding started yesterday with abdominal cramping, feels like may be passed fetus. States not here for miscarriage. She has an OB appointment tomorrow for the miscarriage and reevaluation. She came for lower extremity swelling.. 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 - Social history:: Smoking status: Patient denies any tobacco usage or history of. - Family history:: not pertinent. - Hospitalizations: : No recent hospitalization is reported. ROS: 20:31 Constitutional: Negative for fever, chills, and weight loss, Cardiovascular: Negative rn for chest pain, palpitations, and edema, Respiratory: Negative for shortness of breath, cough, wheezing, and pleuritic chest pain, Abdomen/GI: Negative for abdominal pain, nausea, vomiting, diarrhea, and constipation, Back: Negative for injury and pain, : Positive for vaginal bleeding MS/Extremity: Positive for lower extremity swelling Skin: Negative for injury, rash, and discoloration, Neuro: Negative for headache, weakness, numbness, tingling, and seizure, Exam: 20:31 Constitutional: This is a well developed, well nourished patient who is awake, alert, rn and in no acute distress. Cardiovascular: Regular rate and rhythm. No pulse deficits. Respiratory: No increased work of breathing, no retractions or nasal flaring. Abdomen/GI: Soft, nontender Skin: Warm, dry, no cyanosis, no evidence of infection. MS/ Extremity: Pulses equal, no cyanosis. No pitting edema. Neuro: Awake and alert, GCS 15 Vital Signs: 19:23 BP 136 / 88; Pulse 94; Resp 18 S; Temp 97.4(TE); Pulse Ox 97% on R/A; Weight 70.76 kg as6 (R); Height 5 ft. 1 in. (R); Pain 0/10; 20:10 BP 125 / 80; Pulse 87; Resp 18 S; Pulse Ox 98% ; ha1 21:04 BP 125 / 80; Pulse 82; Resp 17 S; Pulse Ox 99% on R/A; ha1 22:08 BP 118 / 79; Pulse 80; Resp 17 S; Pulse Ox 99% on R/A; ha1 23:10 BP 121 / 77; Pulse 77; Resp 17 S; Temp 97.9; Pulse Ox 100% on R/A; ha1 19:23 Body Mass Index 29.48 (70.76 kg, 154.94 cm) as6 19:23 Pain Scale: Adult as6 MDM: 19:21 Patient medically screened. rn 23:04 Differential diagnosis: Renal failure, dependent edema, DVT. Data reviewed: vital rn signs, nurses notes, lab test result(s), radiologic studies, ultrasound, and as a result, I will discharge patient. Counseling: I had a detailed discussion with the patient and/or guardian regarding the historical points, exam findings, and any diagnostic results supporting the discharge/admit diagnosis, lab results, radiology results, the need for outpatient follow up, to return to the emergency department if symptoms worsen or persist or if there are any questions or concerns that arise at home. Special discussion: I discussed with the patient/guardian in detail that at this point there is no indication for admission to the hospital. It is understood, however, that if the symptoms persist or worsen the patient needs to return immediately for re-evaluation. Based on the history and exam findings, there is no indication for further emergent testing or inpatient evaluation. I discussed with the patient/guardian the need to see the OB Gyne specialist for further evaluation of the symptoms. ED course: Ultrasound per verbal report shows likely impending miscarriage with some blood. Rh+. No evidence of renal failure or DVT. Patient states over the weekend traveled and was hiking, not normally active, possibly just dependent edema in state and activity. Has OB appointment tomorrow. I have personally reviewed all of the results, including but not limited to blood tests and imaging deemed necessary to safely discharge this patient at this time. All results given to and printed out for patient. I personally went over all the results with the patient and answered all questions. Patient will follow-up with PCP and or specialist as discussed. Return precautions given and understood.. 12/11 19:41 Order name: Abo/rh Typing; Complete Time: 20:56 rn 12/11 19:41 Order name: Basic Metabolic Panel; Complete Time: 20:56 rn 12/11 19:41 Order name: CBC with Diff; Complete Time: 20:31 rn 12/11 19:41 Order name: Test, Urine; Complete Time: 21:03 rn 12/11 19:41 Order name: Quantitative Hcg; Complete Time: 20:56 rn 12/11 19:41 Order name: Urinalysis w/ reflexes; Complete Time: 21:18 rn 12/11 19:41 Order name: LFT's; Complete Time: 20:56 rn 12/11 21:20 Order name: Urine Culture EDTX 12/11 19:41 Order name: US Transvaginal Ob rn 12/11 20:56 Order name: Extrem Venous W Compression Brayan US rn 12/11 19:41 Order name: IV Saline Lock; Complete Time: 20:00 rn 12/11 19:41 Order name: Labs collected and sent; Complete Time: 20:00 rn 12/11 19:41 Order name: NPO; Complete Time: 20:00 rn Administered Medications: 20:30 Drug: Acetaminophen PO 500 mg PO once Route: PO; ha1 21:30 Follow up: Response: No adverse reaction; Pain is decreased ha1 23:10 Drug: Macrobid PO 100 mg PO once; administer with food Route: PO; ha1 23:22 Follow up: Response: No adverse reaction ha1 Point of Care Testing: Urine : 23:26 hCG Reading: Positive; ha1 Disposition Summary: 12/12/23 23:08 Discharge Ordered Notes: Location: Home rn Problem: new rn Symptoms: have improved rn Condition: Stable rn Diagnosis - Urinary tract infection following delivery, unspecified rn - Incomplete spontaneous without complication rn - Edema, unspecified rn Followup: rn - With: Private Physician - When: As needed - Reason: Recheck today's complaints, Re-evaluation by your physician Discharge Instructions: - Discharge Summary Sheet rn - Incomplete Miscarriage rn - Urinary Tract Infection, Adult rn - Peripheral Edema rn Forms: - Medication Reconciliation Form rn - Thank You Letter rn - Antibiotic rn field case manager - Prescription Opioid Use rn - Patient Portal Instructions rn - Leadership Thank You Letter rn Prescriptions: - Macrobid 100 mg Oral Capsule - take 1 capsule ORAL route every 12 hours for 7 days; 14 capsule; Refills: 0, rn Product Selection Permitted Signatures: Dispatcher [employer] EDRex Schuster MD MD rn Slawson, Ashby, RN RN as6 Sandhya García RN RN ha1 Corrections: (The following items were deleted from the chart) 19:42 19:41 ABO/RH TYPING+BB.LAB.BRZ ordered. EDMS EDMS 19:42 19:41 BASIC METABOLIC PANEL+C.LAB.BRZ ordered. EDMS EDMS 19:42 19:41 CBC+H.LAB.BRZ ordered. EDMS EDMS 19:42 19:41 Test, Urine+UC.LAB.BRZ ordered. EDMS EDMS 19:42 19:41 QUANTITATIVE HCG+C.LAB.BRZ ordered. EDMS EDMS 19:42 19:41 Urinalysis+U.LAB.BRZ ordered. EDMS EDMS 20:31 20:31 Extrem Venous W Compression Brayan+US.RAD.BRZ ordered. EDMS EDMS
--- NOTE | 2023-12-12 23:08 | ER ---
Nurse's Notes [facility] Name: Irma Mckeon Age: 33 yrs Sex: Female : 1990 Arrival Date: 12/12/2023 Time: 19:13 Bed 8 Private MD: Diagnosis: Urinary tract infection following delivery, unspecified;Incomplete spontaneous without complication;Edema, unspecified Presentation: 12/11 19:23 Chief complaint: Patient states: "my legs are really swollen" pt states that she is as6 also having a miscarriage but that is not why she is here. Coronavirus screen: At this time, the client does not indicate any symptoms associated with coronavirus-19. Ebola Screen: No symptoms or risks identified at this time. Initial Sepsis Screen: Does the patient meet any 2 criteria? No. Patient's initial sepsis screen is negative. Does the patient have a suspected source of infection? No. Patient's initial sepsis screen is negative. Risk Assessment: Do you want to hurt yourself or someone else? Patient reports no desire to harm self or others. Onset of symptoms was December 08, 2023. 19:23 Acuity: ELLEN 3 as6 19:23 Method Of Arrival: Ambulatory as6 Triage Assessment: 20:03 General: Appears in no apparent distress. comfortable, well groomed, well developed, pf1 Behavior is calm, cooperative, appropriate for age, quiet. Pain: Complains of pain in back and abdomen Pain began today. GI: Reports lower abdominal pain, cramping. : Reports vaginal bleeding that is with clots, currenty . Musculoskeletal: Reports pain in back. 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 - Social history:: Smoking status: Patient denies any tobacco usage or history of. - Family history:: not pertinent. - Hospitalizations: : No recent hospitalization is reported. Screenin:02 [facility] ED Fall Risk Assessment (Adult) History of falling in the last 3 months, pf1 including since admission No falls in past 3 months (0 pts) Confusion or Disorientation No (0 pts) Intoxicated or Sedated No (0 pts) Impaired Gait No (0 pts) Mobility Assist Device Used No (0 pt) Altered Elimination No (0 pt) Score/Fall Risk Level 0 - 2 = Low Risk Oriented to surroundings, Maintained a safe environment, Educated pt \\T\\ family on fall prevention, incl call for assistance when getting out of bed, Assessed \\T\\ reinforced patient's understanding of fall precautions, Provided non-skid footwear, Hourly rounding (assess needs \\T\\ fall precautionary measures) done, Used ambulatory aids as needed (educated on \\T\\ assisted with), Used gait belt as appropriate. Abuse screen: Denies threats or abuse. Nutritional screening: No deficits noted. Tuberculosis screening: No symptoms or risk factors identified. Assessment: 20:04 General: Appears in no apparent distress. uncomfortable, well groomed, well developed, pf1 Behavior is calm, cooperative, appropriate for age, quiet. Pain: Complains of pain in abdomen and back Pain radiates to back Pain currently is 7 out of 10 on a pain scale. Quality of pain is described as crampy, Pain began today. Neuro: No deficits noted. Level of Consciousness is awake, alert, obeys commands, Oriented to person, place, time, situation. Cardiovascular: No deficits noted. Capillary refill < 3 seconds Patient's skin is warm and dry. Respiratory: No deficits noted. Airway is patent Respiratory effort is even, unlabored, Respiratory pattern is regular, symmetrical. GI: Abdomen is round non-distended, Bowel sounds present X 4 quads. Reports lower abdominal pain, cramping. : Reports vaginal bleeding that is with clots. EENT: No deficits noted. No signs and/or symptoms were reported regarding the EENT system. 20:04 Musculoskeletal: Reports swelling to bilateral legs. pf1 20:04 Obstetrical Assessment: General assessment: skin warm and dry, Patient reports vaginal ha1 bleeding . 20:33 Reassessment: Notified Fox Estevez of US ordered, ETA 55 minutes. pf1 21:03 Reassessment: Patient and/or family updated on plan of care and expected duration. Pain ha1 level reassessed. Patient is alert, oriented x 3, equal unlabored respirations, skin warm/dry/pink. 22:08 Reassessment: Patient and/or family updated on plan of care and expected duration. Pain ha1 level reassessed. Patient is alert, oriented x 3, equal unlabored respirations, skin warm/dry/pink. pain 2/10 Patient states feeling better. Patient states symptoms have improved. 23:10 Reassessment: Patient and/or family updated on plan of care and expected duration. Pain ha1 level reassessed. Patient is alert, oriented x 3, equal unlabored respirations, skin warm/dry/pink. Vital Signs: 19:23 BP 136 / 88; Pulse 94; Resp 18 S; Temp 97.4(TE); Pulse Ox 97% on R/A; Weight 70.76 kg as6 (R); Height 5 ft. 1 in. (R); Pain 0/10; 20:10 BP 125 / 80; Pulse 87; Resp 18 S; Pulse Ox 98% ; ha1 21:04 BP 125 / 80; Pulse 82; Resp 17 S; Pulse Ox 99% on R/A; ha1 22:08 BP 118 / 79; Pulse 80; Resp 17 S; Pulse Ox 99% on R/A; ha1 23:10 BP 121 / 77; Pulse 77; Resp 17 S; Temp 97.9; Pulse Ox 100% on R/A; ha1 19:23 Body Mass Index 29.48 (70.76 kg, 154.94 cm) as6 19:23 Pain Scale: Adult as6 ED Course: 19:16 Patient arrived in ED. ra3 19:21 Rex Simon MD is Attending Physician. rn 19:23 Arm band placed on. as6 19:24 Triage completed. as6 19:25 Patient has correct armband on for positive identification. Placed in gown. Bed in low ha1 position. Call light in reach. Side rails up X 1. 19:55 Inserted saline lock: 22 gauge in left antecubital area, using aseptic technique. Blood pf1 collected. 19:55 Initial lab(s) drawn, by me, sent to lab. pf1 20:00 Abo/rh Typing Sent. pf1 20:00 Basic Metabolic Panel Sent. pf1 20:00 CBC with Diff Sent. pf1 20:00 Quantitative Hcg Sent. pf1 22:43 US Transvaginal Ob In Process Unspecified. EDMS 23:22 Urine Culture Sent. ha1 23:24 No provider procedures requiring assistance completed. IV discontinued, intact, ha1 bleeding controlled, No redness/swelling at site. Pressure dressing applied. 23:25 Provided Education on: need to follow up with OB. ha1 23:53 Extrem Venous W Compression Brayan US In Process Unspecified. EDMS Administered Medications: 20:30 Drug: Acetaminophen PO 500 mg PO once Route: PO; ha1 21:30 Follow up: Response: No adverse reaction; Pain is decreased ha1 23:10 Drug: Macrobid PO 100 mg PO once; administer with food Route: PO; ha1 23:22 Follow up: Response: No adverse reaction ha1 Medication: 23:25 VIS not applicable for this client. ha1 Point of Care Testing: Urine : 23:26 hCG Reading: Positive; ha1 Outcome: 23:08 Discharge ordered by . rn 23:24 Discharged to home ambulatory, with family, ha1 23:24 Condition: stable 23:24 Discharge instructions given to patient, family, Instructed on discharge instructions, follow up and referral plans. Demonstrated understanding of instructions, follow-up care, 23:28 Patient left the ED. ha1 Signatures: Dispatcher [employer] EDMS Rex Simon MD MD rn Slawson, Ashby, RN RN as6 Sandhya García RN RN ha1 Justa Gee RN RN pf1 Marta Agarwal ra3
[2023-12-12] MEDS ORDERED: NITROFURAN MACRO 100 MG CAP PO ONE (23:13)
[2023-12-13 05:26] VITALS: BP 121/77; TEMP 97.9; O2SAT 100
--- NOTE | 2023-12-13 07:37 | RAD REPORT ---
EXAM DESCRIPTION: US - Transvaginal OB - 12/12/2023 10:41 pm CLINICAL HISTORY: told having miscarriage, increase bleeding COMPARISON: OB Complete dated 10/08/2017 FINDINGS: Axson gestational sac identified in the lower uterine segment containing a yolk sac. The yolk sac measures 4 millimeters. No pole or heart tones identified. The uterus measures 10 cm long axis. The right ovary measures 2.6 x 1.7 x 1.6 cm with volume of 3.8 c c. The left ovary was not visualized. Vascular flow is present in the right ovary. IMPRESSION: Irregularly-shaped gestational sac in the lower uterine segment concerning for a failed first trimester . No heart tones or pole identified. Short-term follow-up ultras ound and correlation with beta HCG suggested to confirm. Vascular flow present left ovary. Right ovary not visualized.
--- NOTE | 2023-12-13 07:37 | RAD REPORT ---
EXAM DESCRIPTION: US - Extrem Venous W Compress Brayan - 12/12/2023 11:51 pm CLINICAL HISTORY: SWELLING COMPARISON: No comparisons TECHNIQUE: Real-time sonographic evaluation of the lower extremity deep venous systems was performed using color Doppler, grayscale, and compression. FINDINGS: Bilateral lower extremities. Normal compressibility, flow augmentation, phasic flow and spontaneous flow is identified in both the left and right lower extremity deep venous systems. No intraluminal filling defects seen. IMPRESSION: No DVT in either lower extremity.
== END 2023-12-12 23:28 | disposition home or self-care (01) ==
LOC: ER 19:13
DX: O03.38 Urinary tract infection following incomplete spontaneous abortion (principal); R60.9 Edema, unspecified
CPT/HCPCS: 36415; 76817; 80048; 80076; 81001; 81025; 84702; 85025; 86900; 86901; 87086; 87088; 93970; 99284

== ENCOUNTER 2024-05-04 17:05 | Emergency (ER) | payer OTHER ==
--- OUTSIDE RECORDS SUMMARY | 2024-05-04 17:09 | XMS REPORT | Continuity of Care Document ---
Author Name Unknown Address [address] [place] [address] [facility] Address [address] [place] [address] Care Team Providers Care [facility] Name Role Phone Milana Jeffers M.D. Primary Care Physician HARITHA AGUIRRE Attending Clinician Unavailable HARITHA AGUIRRE Attending Clinician Unavailable Haritha Aguirre MD Attending Clinician [phone] ENRIQUE CACERES Attending Clinician Unavailable Enrique Caceres MD Attending Clinician [phone] Doctor Unassigned, [place] Attending Clinician U janet Mccollum MD, Joceline K.H. Attending Clinician PRINCESS SUAREZ Attending Clinician Unavailable Princess Suarez MD Attending Clinician [phone] Payers Payer Name Policy Type Policy Number Effective Date Expirati on Date Source [facility] [id number] 2024 00:00:00 Allergies, Adverse Reactions, Alerts Allergy Name Allergy Type Status Severity Reaction(s) Onset Date Inactive Date Treating Clinician Comments Source NO KNOWN ALLERGIE S Drug Class Active Univers [facility] Social History Social Habit Start Date Stop Date Quantity Comments Source History of tobacco use Cigarette Smoker [facility] Alcoholic beverage intake 2024-04-25 00:00:00 2024-04-25 00:00:00 Ex-drinker (finding) [facility] History of Social function 2024-04-25 00:00:00 2024-04-25 00:00:00 [facility] Tobacco use and exposure 2024-03-24 00:00:00 2024-03-24 00:00:00 Smokeless tobacco non-user [facility] Sex assigned at 1990 00:00:00 1990 00:00:00 [facility] Smoking Status Start Date Stop Date Source Tobacco smoking consumption unknown [facility] Ex-smoker 2024-03-24 00:00:00 2024-03-24 00:00:00 [facility] Smokes tobacco daily 2023-03-08 00:00:00 [facility] Medications Ordered Medication Name Filled Medication Name Start Date Stop Date Current Medication? Ordering Clinician Indication Dosage Frequency Signature (SIG) Comments Components Source TAKE 1 CAPSULE BY MOUTH EVERY 12 HOURS FOR 7 DAYS. 12-11 00:00: 00 Yes Norman Howe TAKE THREE (3) TABLET(S) BY MOUTH ONCE A DAY. 2022-09 00:00: 00 Yes Norman Howe TAKE ONE (1) TABLET(S) BY MOUTH EVERY EIGHT HOURS NEEDED. 2022-09 00:00: 00 Yes Norman Howe TAKE ONE (1) TABLET(S) BY MOUTH EVERY TWELVE HOURS FOR 10 DAYS. 2022-09 00:00: 00 Yes Norman Howe TAKE 1 CAPSULE TWICE DAILY. 06-01 00:00: 00 01-03 00:00 :00 No 100 Norman Monica Howe APPLY SPARINGLY TO AFFECTED AREA(S) TWICE DAILY 06-01 00:00: 00 01-03 00:00 :00 No 2 Normanvicente Howe TAKE 1 TABLET TWICE DAILY UNTIL FINISHED. 04-21 00:00: 00 01-03 00:00 :00 No 500 Norman Monica Howe TAKE ONE NOW AND REPEAT IN 3 DAYS 04-20 00:00: 00 01-03 00:00 :00 No 150 Norman Monica Howe TAKE 1 TABLET BY MOUTH TWICE DAILY 02-22 00:00: 00 Yes Norman Monica Shyam KCL 20 mEq/15 mL solution 40 mEq 02-19 08:30: 00 02-19 08:01 :00 No 40meq 40 mEq, Oral, ONCE, 1 dose, On Wed02/19/23 at 0330, MIRA [facility] TAKE 1 CAPSULE BY MOUTH TWICE A DAY 12-30 00:00: 00 Yes Norman Howe TAKE 1 CAPSULE BY MOUTH EVERY 8 HOURS FOR 10 DAYS. 2021-09 2- 00:00: 00 Yes Norman Howe Nexplanon 68 mg subdermal implant 01-27 00:00: 00 Yes 1mg Norman Howe Vital Signs Vital Name Observation Time Observation Value Comments S ource Systolic blood pressure 2024-04-25 15:06:00 139 mm[Hg] [facility] Diastolic blood pressure 2024-04-25 15:06:00 88 mm[Hg] [facility] Heart rate 2024-04-25 15:06:00 88 /min [facility] Body temperature 2024-04-25 15:06:00 36.83 Sarina [facility] Respiratory rate 2024-04-25 15:06:00 18 /min [facility] Body height 2024-04-25 15:06:00 154.9 cm [facility] Body weight 2024-04-25 15:06:00 70.852 kg [facility] BMI 2024-04-25 15:06:00 29.51 kg/m2 [facility] Systolic blood pressure 2024-03-24 14:14:00 125 mm[Hg] [facility] Diastolic blood pressure 2024-03-24 14:14:00 84 mm[Hg] [facility] Heart rate 2024-03-24 14:14:00 79 /min [facility] Body temperature 2024-03-24 14:14:00 36.44 Sarina [facility] Body height 2024-03-24 14:14:00 154.9 cm [facility] Body weight 2024-03-24 14:14:00 71.351 kg [facility] BMI 2024-03-24 14:14:00 29.72 kg/m2 [facility] Systolic blood pressure 2023-03-08 14:36:00 117 mm[Hg] [facility] Diastolic blood pressure 2023-03-08 14:36:00 83 mm[Hg] [facility] Heart rate 2023-03-08 14:36:00 76 /min [facility] Body temperature 2023-03-08 14:36:00 36.61 Sarina [facility] Respiratory rate 2023-03-08 14:36:00 17 /min [facility] Body height 2023-03-08 14:36:00 154.9 cm [facility] Body weight 2023-03-08 14:36:00 54.885 kg [facility] BMI 2023-03-08 14:36:00 22.86 kg/m2 [facility] Oxygen saturation in Arterial blood by Pulse oximetry 2023-03-08 14:36:00 98 /min [facility] Systolic blood pressure 2023-02-19 07:00:00 111 mm[Hg] [facility] Diastolic blood pressure 2023-02-19 07:00:00 71 mm[Hg] [facility] Heart rate 2023-02-19 07:00:00 73 /min [facility] Respiratory rate 2023-02-19 07:00:00 19 /min [facility] Oxygen saturation in Arterial blood by Pulse oximetry 2023-02-19 07:00:00 93 /min [facility] Body temperature 2023-02-19 05:34:00 37.17 Sarina [facility] Body height 2023-02-19 05:34:00 154.9 cm [facility] Body weight 2023-02-19 05:34:00 56.7 kg [facility] BMI 2023-02-19 05:34:00 23.62 kg/m2 [facility] BP Systolic 2023-12-20 08:52:00 135 mm[Hg] Step hen F Hsyam BP Diastolic 2023-12-20 08:52:00 81 mm[Hg] [place] phen F Shyam Weight Measured 2023-12-20 08:52:00 153.40 pounds Norman F Shyam Height Measured 2023-12-20 08:52:00 61.22 inches Norman F Shyam Body Temperature 2023-12-20 08:52:00 98.10 degrees Norman F Shyam Heart Rate 2023-12-20 08:52:00 80.00 /min Marci en F Shyam Respiratory Rate 2023-12-20 08:52:00 17.00 /min Norman F Shyam BP Systolic 2023-12-13 11:53:00 123 mm[Hg] Step hen F Shyam BP Diastolic 2023-12-13 11:53:00 81 mm[Hg] [place] phen F Shyam Weight Measured 2023-12-13 11:53:00 154.40 pounds Norman F Shyam Height Measured 2023-12-13 11:53:00 61.22 inches Norman F Shyam Body Temperature 2023-12-13 11:53:00 97.50 degrees Norman F Shyam Heart Rate 2023-12-13 11:53:00 92.00 /min Marci en F Shyam Respiratory Rate 2023-12-13 11:53:00 18.00 /min Onrman F Shyam BP Systolic 2023-12-02 14:03:00 126 mm[Hg] Step hen F Shyam BP Diastolic 2023-12-02 14:03:00 78 mm[Hg] [place] phen F Shyam Weight Measured 2023-12-02 14:03:00 156.80 pounds Norman F Shyam Height Measured 2023-12-02 14:03:00 61.22 inches Norman F Shyam Body Temperature 2023-12-02 14:03:00 98.40 degrees Norman F Shyam Heart Rate 2023-12-02 14:03:00 81.00 /min Marci en F Shyam Respiratory Rate 2023-12-02 14:03:00 18.00 /min Norman F Shyam BP Systolic 2023-11-16 10:44:00 119 mm[Hg] Step hen F Shyam BP Diastolic 2023-11-16 10:44:00 77 mm[Hg] [place] phen F Shyam Weight Measured 2023-11-16 10:44:00 151.00 pounds Norman F Shyam Height Measured 2023-11-16 10:44:00 61.22 inches Norman F Shyam Body Temperature 2023-11-16 10:44:00 98.40 degrees Norman F Shyam Heart Rate 2023-11-16 10:44:00 86.00 /min Marci en F Shyam Respiratory Rate 2023-11-16 10:44:00 19.00 /min Norman F Shyam BP Systolic 2023-10-19 12:11:00 118 mm[Hg] Step hen F Shyam BP Diastolic 2023-10-19 12:11:00 76 mm[Hg] [place] phen F Shyam Weight Measured 2023-10-19 12:11:00 123.00 pounds Norman F Shyam Height Measured 2023-10-19 12:11:00 61.22 inches Norman F Shyam Body Temperature 2023-10-19 12:11:00 98.00 degrees Norman F Shyam Heart Rate 2023-10-19 12:11:00 87.00 /min Marci en F Shyam Respiratory Rate 2023-10-19 12:11:00 18.00 /min Norman F Shyam BP Systolic 2023-06-01 13:59:00 115 mm[Hg] Step hen F Shyam BP Diastolic 2023-06-01 13:59:00 78 mm[Hg] [place] phen F Shyam Weight Measured 2023-06-01 13:59:00 125.40 pounds Norman F Shyam Height Measured 2023-06-01 13:59:00 61.22 inches Norman F Shyam Body Temperature 2023-06-01 13:59:00 98.20 degrees Norman F Shyam Heart Rate 2023-06-01 13:59:00 87.00 /min Marci en F Shyam Respiratory Rate 2023-06-01 13:59:00 18.00 /min Norman F Shyam Respiratory Rate 2023-05-22 14:13:00 16.00 /min Norman F Shyam BP Systolic 2023-05-22 14:13:00 115 mm[Hg] Step hen F Shyam BP Diastolic 2023-05-22 14:13:00 75 mm[Hg] [place] phen F Shyam Weight Measured 2023-05-22 14:13:00 126.80 pounds Norman F Shyam Height Measured 2023-05-22 14:13:00 61.22 inches Norman F Shyam Body Temperature 2023-05-22 14:13:00 98.00 degrees Norman F Shyam Heart Rate 2023-05-22 14:13:00 88.00 /min Marci en F Shyam BP Systolic 2023-04-20 10:24:00 114 mm[Hg] Step hen F Shyam BP Diastolic 2023-04-20 10:24:00 74 mm[Hg] [place] phen F Shyam Weight Measured 2023-04-20 10:24:00 121.60 pounds Norman F Shyam Height Measured 2023-04-20 10:24:00 61.22 inches Norman F Shyam Body Temperature 2023-04-20 10:24:00 98.50 degrees Norman F Shyam Heart Rate 2023-04-20 10:24:00 71.00 /min Marci en F Shyam Respiratory Rate 2023-04-20 10:24:00 Norman F Shyam BP Systolic 2021-02-18 14:31:00 112 mm[Hg] Step hen F Shyam BP Diastolic 2021-02-18 14:31:00 73 mm[Hg] [place] phen F Shyam Weight Measured 2021-02-18 14:31:00 110.40 pounds Norman F Shyam Height Measured 2021-02-18 14:31:00 61.22 inches Norman F Shyam Body Temperature 2021-02-18 14:31:00 98.20 degrees Norman F Shyam Heart Rate 2021-02-18 14:31:00 80.00 /min Marci en F Shyam Respiratory Rate 2021-02-18 14:31:00 16.00 /min Norman F Shyam BP Systolic 2021-02-04 14:24:00 119 mm[Hg] Step hen F Shyam BP Diastolic 2021-02-04 14:24:00 77 mm[Hg] [place] phen F Shyam Weight Measured 2021-02-04 14:24:00 112.80 pounds Norman F Shyam Height Measured 2021-02-04 14:24:00 61.22 inches Norman F Shyam Body Temperature 2021-02-04 14:24:00 98.70 degrees Norman F Shyam Heart Rate 2021-02-04 14:24:00 81.00 /min Marci en F Shyam Respiratory Rate 2021-02-04 14:24:00 16.00 /min Norman F Shyam Procedures Procedure Date / Time Performed Performing Clinician Source POCT TEST 2024-04-25 00:00:00 Haritha Aguirre [facility] POCT TEST 2024-03-24 00:00:00 Haritha Aguirre [facility] CONSENT/REFUSAL FOR DIAGNOSIS AND TREATMENT 2023-03-08 14:16:27 Doctor Unassigned, [place] [facility] EKG-12 LEAD 2023-02-19 07:34:53 Princess Suarez [facility] LIPASE 2023-02-19 05:43:00 Princess Suarez [facility] TROPONIN I 2023-02-19 05:43:00 Princess Suarez [facility] THYROID STIMULATING HORMONE 2023-02-19 05:43:00 Princess Suarez [facility] COMP. METABOLIC PANEL ([id number]) 2023-02-19 05:43:00 Princess Suarez [facility] CBC WITH DIFF 2023-02-19 05:43:00 Princess Suarez [facility] URINALYSIS 2023-02-19 05:43:00 Princess Suarez [facility] Encounters Start Date/Time End Date/Time Encounter Type Admission Type Attending Clinicians Care Facility Care Department Encounter ID Source 2024-04-25 10:00:00 2024-04-25 10:48:43 Outpatient R HARITHA AGUIRRE [facility] [id number] [facility] 2024-04-25 10:00:00 2024-04-25 10:48:43 Office Visit Haritha Aguirre [facility] [id number] [id number] [id number] [facility] 2024-03-24 09:00:00 2024-03-24 09:34:56 Outpatient R HARITHA AGUIRRE [facility] [id number] [facility] 2024-03-24 09:00:00 2024-03-24 09:34:56 Office Visit Haritha Aguirre [facility] [id number] 350.1.13.10 4.2.7.2.686 [id number] [facility] 2024-03-21 08:00:00 2024-03-21 08:00:00 Outpatient R HARITHA AGUIRRE [facility] [id number] [facility] 2024-03-03 16:16:42 2024-03-03 16:16:42 Outpatient SFA SFA [id number] Norman Howe 2024-02-29 16:07:07 2024-02-29 16:07:07 Outpatient SFA SFA [id number] Norman Howe 2024-02-29 00:00:00 2024-02-29 00:00:00 Outpatient Visit SFA [id number] Norman Howe 2023-12-27 11:51:18 2023-12-27 11:51:18 Outpatient SFA SFA [id number] Norman Howe 2023-12-20 08:38:29 2023-12-20 08:38:29 Outpatient SFA SFA [id number] Norman Howe 2023-12-13 13:03:11 2023-12-13 13:03:11 Outpatient SFA SFA [id number] Norman Howe 2023 13:10:11 2023 13:10:11 Outpatient SFA SFA [id number] Norman Howe 2023-12-02 13:58:12 2023-12-02 13:58:12 Outpatient SFA SFA [id number] Norman Howe 2023-11-29 13:03:00 2023-11-29 13:03:00 Outpatient SFA SFA [id number] Norman Howe 2023-11-25 09:59:40 2023-11-25 09:59:40 Outpatient SFA SFA [id number] Norman Howe 2023-11-16 10:36:05 2023-11-16 10:36:05 [address] [id number] Norman Howe 2023-10-19 11:48:58 2023-10-19 11:48:58 [address] [id number] Norman Howe 2023-06-01 13:42:14 2023-06-01 13:42:14 [address] [id number] Norman Howe 2023-05-22 14:06:34 2023-05-22 14:06:34 [address]patient [address] [id number] Norman Howe 2023-04-20 10:20:16 2023-04-20 10:20:16 [address] [id number] Norman Howe 2023-03-08 09:40:00 2023-03-08 09:52:30 [facility] [id number] [facility] 2023-03-08 09:40:00 2023-03-08 09:52:30 [facility] 1..840.114 350.1.13.10 4.2.7.2.686 [id number] [facility] 2023-03-08 00:00:00 2023-03-08 00:00:00 Orders Only Doctor Unassigned, [place] [facility] 1..840.114 350.1.13.10 4.2.7.2.686 [id number] [facility] 2023-02-22 00:00:00 2023-02-22 00:00:00 Telephone Joceline Mccollum [facility] [id number] 350.1.13.10 4.2.7.2.686 [id number] [facility] 2023-02-19 00:39:00 2023-02-19 03:09:00 Emergency X PRINCESS SUAREZ [facility] ERT [id number] [facility] 2023-02-19 00:39:00 2023-02-19 03:09:00 Emergency Princess Suarez [facility] [id number] 350.1.13.10 4.2.7.2.686 [id number] [facility] Results Test Description Test Time Test Comments Results Result Co mments [id number] 14:23:00* Test Item Value Reference Range Interpretation Comme nts POCT PREG (test code = 1605) Negative On board controls acceptable with C Line (test code = 3574) Yes POCT PREG LOT # (test code = 3575) POCT PREG TEST DATE ( test code = 3576) [facility] [id number] 04:31:49* Test Item Value Reference Range Interpretation Comme nts HCG, QUANTITATIVE (test code = 2506) 8 MIU/ML SEE BELOW EXPEC BHARTI VALUES FOR [...] . . . . . . MIU/ML [id number]-[id number] FEMALES . . . . . . . . . . . . MIU/ML <=7 UNLESS OTHERWISE INDICATED, ALL TESTING PERFORMED AT [facility] [address] [place] [address] [employer]SEMBLIES [employer] INSTALLATIONS INSPECTOR: KAROL OBREGON M.D. CLIA NUMBER [id number] [place]. [id number] HCG, [id number] 05:13:01* Test Item Value Reference Range Interpretation Comme nts HCG, QUANTITATIVE (test code = 2506) 166 MIU/ML SEE BELOW EXPEC BHARTI VALUES FOR [...] . . . . . . MIU/ML 2-6BWUR-[id number] FEMALES . . . . . . . . . . . . MIU/ML <=7 UNLESS OTHERWISE INDICATED, ALL TESTING PERFORMED AT [facility] [address] [place] [address] ASSEMBLIES AND INSTALLATIONS INSPECTOR: KAROL OBREGON M.D. CLIA NUMBER [id number] [place]. [id number] HCG, [id number] 00:00:00* Test Item Value Reference Range Interpretation Comme nts HCG, QUANTITATIVE (test code = 2506) 166 MIU/ML Norman Anderson DaveyG, [id number] 04:29:58* Test Item Value Reference Range Interpretation Comme nts HCG, QUANTITATIVE (test code = 2506) 1259 MIU/ML SEE BELOW EXPEC BHARTI VALUES FOR [...] . . . . . . MIU/ML [id number] FEMALES . . . . . . . . . . . . MIU/ML <=7 UNLESS OTHERWISE INDICATED, ALL TESTING PERFORMED AT [facility] [address] [place] [address] ASSEMBLIES AND INSTALLATIONS INSPECTOR: KAROL OBREGON M.D. [place] NUMBER [id number] [facility] [place]. [id number] HCG, [id number] 00:00:00* Test Item Value Reference Range Interpretation Comme [facility] HCG, QUANTITATIVE (test code = 2506) 1259 MIU/ML Norman HoweHCG, [id number] 01:13:42* Test Item Value Reference Range Interpretation Comme [facility] HCG, QUANTITATIVE (test code = 2506) 6691 MIU/ML SEE BELOW EXPEC BHARTI VALUES FOR [...] . . . . . . MIU/ML 1-3ZQBU-TUPXHECODF FEMALES . . . . . . . . . . . . MIU/ML <=7 UNLESS OTHERWISE INDICATED, ALL TESTING PERFORMED AT [facility] [address] [place] [address] ASSEMBLIES AND INSTALLATIONS INSPECTOR: KAROL OBREGON M.D. CLIA NUMBER [id number] [facility] [place]. [id number] HCG, [id number] 00:00:00* Test Item Value Reference Range Interpretation Comme nts HCG, QUANTITATIVE (test code = 2506) 6691 MIU/ML Norman HoweHCG, [id number] 06:38:37* Test Item Value Reference Range Interpretation Comme nts HCG, QUANTITATIVE (test code = 2506) 7334 [...] . . . . . . MIU/ML 4-4OTFT-UMBCQORIWS FEMALES . . . . . . . . . . . . MIU/ML <=7 UNLESS OTHERWISE INDICATED, ALL TESTING PERFORMED AT [facility] [address] [place] [address] ASSEMBLIES AND INSTALLATIONS INSPECTOR: Emmett HODGESIA NUMBER [id number] [place]. [id number] HCG, [id number] 00:00:00* Test Item Value Reference Range Interpretation Comme nts HCG, QUANTITATIVE (test code = 2506) 7334 MIU/ML Norman HoweHCG, [id number] 06:34:59* Test Item Value Reference Range Interpretation Comme nts HCG, QUANTITATIVE (test code = 2506) 32478 MIU/ML SEE BELOW EXPEC BHARTI VALUES FOR [...] . . . . . . MIU/ML 2-1DORS-[id number] FEMALES . . . . . . . . . . . . MIU/ML <=7 UNLESS OTHERWISE INDICATED, ALL TESTING PERFORMED AT [facility] [address] [place] [address] ASSEMBLIES [employer] INSTALLATIONS INSPECTOR: KAROL OBREGON M.D. CLIA NUMBER [id number] [place]. [id number] HCG, [id number] 00:00:00* Test Item Value Reference Range Interpretation Comme nts HCG, QUANTITATIVE (test code = 2506) 00802 MIU/ML Norman HoweHCG, [id number] 06:37:10* Test Item Value Reference Range Interpretation Comme nts HCG, QUANTITATIVE (test code = 2506) 72144 MIU/ML SEE BELOW EXPEC BHARTI VALUES FOR [...] . . . . . . MIU/ML 4-3OCPJ-PSYHDULKQF FEMALES . . . . . . . . . . . . MIU/ML <=7 UNLESS OTHERWISE INDICATED, ALL TESTING PERFORMED AT [facility] [address] [place] [address] ASSEMBLIES AND INSTALLATIONS INSPECTOR: KAROL OBREGON M.D. CLIA NUMBER [id number] [place]. [id number] HCG, [id number] 00:00:00* Test Item Value Reference Range Interpretation Comme nts HCG, QUANTITATIVE (test code = 2506) 36982 MIU/ML Norman HoweCULTURE, [id number] 10:08:14SPECIMEN NUMBER: [id number] CULTURE, URINE SPECIMEN NUMBER: [id number] SPECIMEN COMMENT: URINE SOURCE: URINE REPORT STATUS: FINAL FINAL REPORT: 11/18/2023 50-100,000 CFU/ML MIXED MICROBIAL POPULATION PRESENT, NO PREDOMINATING ORGANISMS;PROBABLE CONTAMINANTS.CULTURE, [id number] 00:00:00* Test Item Value Reference Range Interpretation Comme nts CULTURE, URINE (test code = 07754) SPECIMEN NUMBER: [id number] Norman Anderson AustinCT/NG, NAAT, [id number] 18:02:14* Test Item Value Reference Range Interpretation Comme nts CHLAMYDIA, NAAT, URINE (test code = 26005) NEGATIVE NEGATIVE Testing is perfo rmed with Mal SUDHIR 6800/8800 systems usingreal-time polymerase chain reaction (PCR) method. A negative result does not exclude low level infection, specimensampling error, or collection error. GONORRHEA, NAAT, URINE (test code = 95418) NEGATIVE NEGATIVE Testing is perfo rmed with Mal SUDHIR 6800/8800 systems usingreal-time polymerase chain reaction (PCR) method. A negative result does not exclude low level infection, specimensampling error, or collection error. HEMOGLOBIN [id number] 14:26:55* Test Item Value Reference Range Interpretation Comme nts HEMOGLOBIN A1 (test code = 2575) 97.3 % 95.0-98.5 HEMOGLOBIN A2 (test code = 2576) 2.7 % 1.6-3.7 HEMOGLOBIN F () (test code = 2722) 0.0 % 0.0-2.0 HEMOGLOBIN S (test code = 2724) NONE % NONE DETECTED HEMOGLOBIN C (test code = 2726) NONE % NONE DETECTED OTHER HEMOGLOBIN VARIANT (test code = 99207) NONE DETEC % NONE DETECTED PATHOLOGIST'S INTERPRETATION (test code = 2577) (NOTE) NO ABNORMAL HEMOGLOBINS IDENTIFIED. KAROL OBREGON M.D. VARICELLA ZOSTER [id number] 13:17:04* Test Item Value Reference Range Interpretation Comme nts VARICELLA ZOSTER IgG (test code = 52615) 132 INDEX SEE BELOW L INTERPRETATI ON [...] INDEX >=165 DRUG ABUSE SCREEN 10 REFLEX [id number] 05:07:21* Test Item Value Reference Range Interpretation Comme nts AMPHETAMINES (test code = 3201) NEGATIVE NEGATIVE BARBITURATES (test code = 3202) NEGATIVE NEGATIVE BENZODIAZEPINES (test code = 3203) NEGATIVE NEGATIVE CANNABINOIDS (test code = 3204) NEGATIVE NEGATIVE COCAINE METABOLITE (test code = 3205) NEGATIVE NEGATIVE OPIATES (test code = 3209) NEGATIVE NEGATIVE OXYCODONE (test code = 13785) NEGATIVE NEGATIVE PHENCYCLIDINE (test code = 3210) NEGATIVE NEGATIVE METHADONE (test code = 3207) NEGATIVE NEGATIVE BUPRENORPHINE (test code = 80455) NEGATIVE NEGATIVE SOURCE (test code = 309456) URINE SEE BELOW FO R THRESHOLDS AND [...] or contact the laboratory within specimen stability tofornew [place] for confirmatory testing. This test is specified for medicalpurposes only. It is not valid for forensic use. UNLESS OTHERWISE INDICATED, ALL TESTING PERFORMED AT [facility] [address] [place] [address] ASSEMBLIES AND INSTALLATIONS INSPECTOR: KAROL OBREGON M.D. CLIA NUMBER [id number] [place]. [id number] OBSTETRIC PANEL + [id number] 04:24:11* Test Item Value Reference Range Interpretation [...] 0.00-0.10 ABS NUCLEATED RBCS (test code = 19548) 0.00 K/UL 0.00-0.11 BLOOD TYPE AND RH [...] BELOW RUBELLA IgG INTERP (test code = 30581) REACTIVE REACTIVE INTERPRETATI ON UNITS RANGE NON-REACTIVE/NON-IMM UNE IU/ML <10 REACTIVE/IMMUNE IU/ML >=10 HEPATITIS B SURF AG (test code = 2739) NON-REACTIVE NON-REACTIVE RPR (test code = 83365) NON-REACTIVE NON-REACTIVE RPR TITER (test code = 3500) NOT INDIC. TITER NOT INDIC. HIV 1/2 4TH GEN, RFLX CONF (test code = 3514) NON-REACTIVE NON-REACTIVE HEPATITIS C REFLEX [id number] 04:24:11* Test Item Value Reference Range Interpretation Comme nts HEPATITIS C ANTIBODY (test c ode = 4675) NON-REACTIVE NON-REACTIVE VARICELLA ZOSTER [id number] 00:00:00* Test Item Value Reference Range Interpretation Comme nts VARICELLA ZOSTER IgG (test c ode = 29834) 132 INDEX Norman HoweDRUG ABUSE SCREEN 10 REFLEX [id number] 00:00:00* Test Item Value Reference Range Interpretation Comme nts AMPHETAMINES (test code = 3201) NEGATIVE BARBITURATES (test code = 3202) NEGATIVE BENZODIAZEPINES (test code = 3203) NEGATIVE CANNABINOIDS (test code = 3204) NEGATIVE COCAINE METABOLITE (test cod e = 3205) NEGATIVE OPIATES (test code = 3209) NEGATIVE OXYCODONE (test code = 31422) NEGATIVE PHENCYCLIDINE (test code = 3210) NEGATIVE METHADONE (test code = 3207) NEGATIVE BUPRENORPHINE (test code = 50431) NEGATIVE SOURCE (test code = 536903) URINE Norman Anderson AustinCT/NG, TMA, [id number] 00:00:00* Test Item Value Reference Range Interpretation Comme nts CHLAMYDIA, NAAT, URINE (test code = 75049) NEGATIVE GONORRHEA, NAAT, URINE (test code = 84524) NEGATIVE Norman HoweOBSTETRIC PANEL + [id number] 00:00:00* Test Item Value Reference Range Interpretation Comme nts WBC (test code = 1001) 9.0 K/UL RBC (test code = 1002) 3.97 M/UL HEMOGLOBIN (test code = 1003) 12.6 G/DL HEMATOCRIT (test code = 1004) 35.7 % MCV (test code = 1005) 89.9 fL MCH (test code = 1006) 31.7 PG MCHC (test code = 1007) 35.3 G/DL RDW (test code = 1038) 12.3 % NEUTROPHILS (test code = 1008) 71.3 % LYMPHOCYTES (test code = 1010) 17.5 % MONOCYTES (test code = 1011) 8.0 % EOSINOPHILS (test code = 1012) 2.7 % BASOPHILS (test code = 1013) 0.3 % IMMATURE GRANULOCYTES (test code = 1036) 0.2 % NUCLEATED RBCS (test code = 1065) 0.0 /100WBC'S PLATELET COUNT (test code = 1015) 295 K/UL ABSOLUTE NEUTROPHILS (test code = 1066) 6.41 K/UL ABSOLUTE LYMPHOCYTES (test code = 1067) 1.57 K/UL ABSOLUTE MONOCYTES (test code = 1068) 0.72 K/UL ABSOLUTE EOSINOPHILS (test code = 1040) 0.24 K/UL ABSOLUTE BASOPHILS (test code = 1069) 0.03 K/UL ABS IMMATURE GRANULOCYTES (test code = 1020) 0.02 K/UL ABS NUCLEATED RBCS (test code = 86267) 0.00 K/UL BLOOD TYPE AND RH (test code = 3901) O POSITIVE ANTIBODY SCREEN (test code = 3902) NEGATIVE RUBELLA ANTIBODY SCREEN (test code = 4600) 18 IU/ML RUBELLA IgG INTERP (test code = 35773) REACTIVE HEPATITIS B SURF AG (test code = 2739) NON-REACTIVE RPR (test code = 77637) NON-REACTIVE RPR TITER (test code = 3500) NOT INDIC. TITER HIV 1/2 4TH GEN, RFLX CONF (test code = 3514) NON-REACTIVE Norman Anderson AustinHEPATITIS C REFLEX [id number] 00:00:00* Test Item Value Reference Range Interpretation Comme nts HEPATITIS C ANTIBODY (test c ode = 4619) NON-REACTIVE Norman F AustinHEMOGLOBIN [id number] 00:00:00* Test Item Value Reference Range Interpretation Comme nts HEMOGLOBIN A1 (test code = 2575) 97.3 % HEMOGLOBIN A2 (test code = 2576) 2.7 % HEMOGLOBIN F () (test c ode = 2722) 0.0 % HEMOGLOBIN S (test code = 2724) NONE % HEMOGLOBIN C (test code = 2726) NONE % OTHER HEMOGLOBIN VARIANT (te st code = 12266) NONE DETEC % PATHOLOGIST'S INTERPRETATION (test code = 2577) (NOTE) Norman Anderson AustinPAP TEST, THINPREP, [id number] 11:36:48* Test Item Value Reference Range Interpretation Comme nts SOURCE: (test code = 8001) Cervical/Endoce rvical SLIDES: (test code = 8011) 1 LMP: (test code = 8021) NOT GIVEN SPECIMEN ADEQUACY: (test code = 83362) (NOTE) Satisfactory for evaluation. Endocervical cells/transformation zone component present. INTERPRETATION: (test code = 15633) NILM/NO EPITH. ABNORMALITY;SEE BELOW --- - NEGATIVE FOR INTRAEPITHELIAL LESION OR MALIGNANCY (NILM) ---- OTHER COMMENTS: (test code = 8081) (NOTE) Shift in luciana suggestive of bacterial vaginosis. FITNESS CENTER ATTENDANT : (test code = 8101) MED Ayala(ASCP)IA C QC TECHNOLOGIST: (test code = 8111) MED Benitez(ASCP)IAC LOCATION: (test code = 64526) (NOTE) Specimens proces sed and interpreted at [facility], [address] [place] [address], , CLIA: [id number] CPT: (test code = 8140) (NOTE) 48850 UNLESS OTH ERWISE INDICATED, COMPUTER AIDED AND FITNESS CENTER ATTENDANT SCREENING PERFORMED. The Pap test is a screening test with an inherent, but low probability of error. Your patient should be reminded to consult you immediately if she experiences any suspicious signs or symptoms, regardless of her Pap test result. An alternate report format containing images or consolidated prior Pap history is available as applicable. PAP TEST, THINPREP, [id number] 00:00:00* Test Item Value Reference Range Interpretation Comme nts SOURCE: (test code = 8001) Cervical/Endocervical SLIDES: (test code = 8011) 1 LMP: (test code = 8021) NOT GIVEN SPECIMEN ADEQUACY: (test code = 27405) (NOTE) INTERPRETATION: (test code = 45553) NILM/NO EPITH. ABNORMALITY;SEE BELOW OTHER COMMENTS: (test code = 8081) (NOTE) FITNESS CENTER ATTENDANT: (test code = 8101) MED Ayala(ASCP)IAC QC TECHNOLOGIST: (test code = 8111) MED Benitez(ASCP)IAC LOCATION: (test code = 98917) (NOTE) CPT: (test code = 8140) (NOTE) Norman HoweHPV HIGH RISK WITH GENOTYPE, [id number] 17:11:24* Test Item Value Reference Range Interpretation Comme nts HPV HIGH RISK INTERP (test code = 94015) POSITIVE NEGATIVE A HPV 16 (test code = 07249) NEGATIVE HPV 18 (test code = 38565) NEGATIVE HPV, HR, OTHER GENOTYPES (test code = 55316) POSITIVE A Testing methodol ogy is real-time [...] TESTING PERFORMED AT [facility] [address] [place] [address] ASSEMBLIES AND INSTALLATIONS INSPECTOR: KAROL OBREGON M.D. [place] NUMBER [id number] [facility] [place]. [id number] VAGINAL PATHOGENS DNA [id number] 15:51:26* Test Item Value Reference Range Interpretation Comme nts LINDSEY SPECIES (test code = ) NEGATIVE NEGATIVE G. VAGINALIS (test code = 85673) POSITIVE NEGATIVE A T. VAGINALIS (test code = 96785) NEGATIVE NEGATIVE Note: [facility] VPIII Microbial Identification Testis a DNA probe test intended for use in the detectionand identification of Lindsey species, Gardnerellavaginalis and Trichomonas vaginalis nucleic acid. UNLESS OTHERWISE INDICATED, ALL TESTING PERFORMED AT [facility] [address] [place] [address] ASSEMBLIES AND INSTALLATIONS INSPECTOR: KAROL OBREGON M.D. [place] NUMBER [id number] [facility] [place]. [id number] VAGINAL PATHOGENS DNA [id number] 00:00:00* Test Item Value Reference Range Interpretation Comme nts LINDSEY SPECIES (test code = ) NEGATIVE G. VAGINALIS (test code = 85913) POSITIVE T. VAGINALIS (test code = 14808) NEGATIVE Norman Anderson AustinHPV HIGH RISK WITH GENOTYPE, [id number] 00:00:00* Test Item Value Reference Range Interpretation Comme nts HPV HIGH RISK INTERP (test c ode = 47980) POSITIVE HPV 16 (test code = 46332) NEGATIVE HPV 18 (test code = 18345) NEGATIVE HPV, HR, OTHER GENOTYPES (te st code = 89367) POSITIVE PDFE (test code = PDFReport) PDF Norman Anderson AustinTHYROID STIMULATING [id number] 07:05:10* Test Item Value Reference Range Interpretation Comme nts TSH (test code = 8716308646) 4.58 See_Comment [Automated messa ge] The system which generated this result transmitted reference range: 0.45 - 4.70 mIU/L. The reference range was not used to interpret this result as normal/abnormal. Lab Interpretation (test code = 46659-4) Normal [place] [id number] 06:46:25* Test Item Value Reference Range Interpretation Comme nts TROPONIN I (test code = 0978093759) 0.004 ng/mL <=0.034 SWAPNA (test code = [...] of biotin. Lab Interpretation (test code = 57641-8) Normal [facility]. METABOLIC PANEL (10155)2023-02-19 06:34:25* Test Item Value Reference Range Interpretation Comme nts NA (test code = 7252745688) 140 mmol/L 135-145 K (test code = 8906997919) 3.4 mmol/L 3.5-5.0 L CL (test code = 8296963792) 108 mmol/L 98-108 CO2 TOTAL (test code = 9031396544) 22 mmol/L 23-31 L AGAP (test code = 5167411833) 10 2-16 BUN (test code = 5387162863) 16 mg/dL 7-23 GLUCOSE (test code = 7254257632) 163 mg/dL 70-110 H CREATININE (test code = 7392335506) 0.57 mg/dL 0.50-1.04 TOTAL BILI (test code = 1490134471) 0.4 mg/dL 0.1-1.1 CALCIUM (test code = 8303105526) 9.6 mg/dL 8.6-10.6 T PROTEIN (test code = 4082873707) 7.6 g/dL 6.3-8.2 ALBUMIN (test code = 2001492134) 4.9 g/dL 3.5-5.0 ALK PHOS (test code = 9891598475) 56 U/L 34-122 ALTv (test code = 1742-6) 22 U/L 5-35 AST(SGOT) (test code = 4686050335) 26 U/L 13-40 eGFR (test code = 8592590756) 124.5 mL/min/1.73m2 SWAPNA (test code = SWAPNA) [...] imaging tests). Lab Interpretation (test code = 16847-4) [facility] [id number] 06:34:05* Test Item Value Reference Range Interpretation Comme nts LIPASE (test code = 6330447733) 81 U/L 0-220 Lab Interpretation (test cod e = 16827-3) Normal [facility] WITH [id number] 06:18:21* Test Item Value Reference Range Interpretation Comme nts WBC (test code = 6690-2) 7.93 See_Comment [Automated ClickFacts] The system which generated this result transmitted reference range: 4.30 - 11.10 10*3/?L. The reference range was not used to interpret this result as normal/abnormal. RBC (test code = 789-8) 3.94 See_Comment [Automated Radiant [employer]] The system which generated this result transmitted [...] g/dL 31.6-35.1 H RDW-SD (test code = 36007-5) 39.3 fL 39.0-49.9 RDW-CV (test code = 788-0) 12.0 % 12.0-15.5 PLT (test code = 777-3) 241 See_Comment [Automated messa ge] The system which generated this result transmitted reference range: 166 - 358 10*3/?L. The reference range was not used to interpret this result as normal/abnormal. MPV (test code = 41986-3) 10.5 fL 9.5-12.9 NRBC/100 WBC (test code = 8567220679) 0.0 See_Comment [Automated [employer] ssage] The system which generated this result transmitted reference range: 0.0 - 10.0 /100 WBCs. The reference range was not used to interpret this result as normal/abnormal. NRBC x10^3 (test code = 8501915482) See_Comment [Automated messa ge] The system which generated this result transmitted reference range: 10*3/?L. The reference range was not used to interpret this result as normal/abnormal. GRAN MAT (NEUT) % (test code = 770-8) 63.1 % IMM GRAN % (test code = 3679114130) 0.10 % LYMPH % (test code = 736-9) 26.1 % MONO % (test code = 5905-5) 6.9 % EOS % (test code = 713-8) 3.3 % BASO % (test code = 706-2) 0.5 % GRAN MAT x10^3(ANC) (test code = 8080797059) 5.00 10*3/uL 1.88-7.09 IMM GRAN x10^3 (test code = 0390777906) 0.00-0.06 LYMPH x10^3 (test code = 731-0) 2.07 10*3/uL 1.32-3.29 MONO x10^3 (test code = 742-7) 0.55 10*3/uL 0.33-0.92 EOS x10^3 (test code = 711-2) 0.26 10*3/uL 0.03-0.39 BASO x10^3 (test code = 704-7) 0.04 10*3/uL 0.01-0.07 Lab Interpretation (test code = 22378-3) Abnormal [facility] HospitalPA [facility], THINPREP, [id number] 00:00:00 * Test Item Value Reference Range Interpretation Comme nts SOURCE: (test code = 8001) Endocervical SLIDES: (test code = 8011) 1 LMP: (test code = 8021) 01/24/2021 SPECIMEN ADEQUACY: (test code = 06575) (NOTE) INTERPRETATION: (test code = 67373) NILM/NO EPITH. ABNORMALITY;SEE BELOW OTHER COMMENTS: (test code = 8081) (NOTE) FITNESS CENTER ATTENDANT: (test code = 8101) Monalisa Rosen CT (ASCP) QC TECHNOLOGIST: (test code = 8111) Baldo Eli,SCT(ASCP)IAC LOCATION: (test code = 22259) (NOTE) CPT: (test code = 8140) (NOTE) Norman HoweHPV HIGH RISK WITH GENOTYPE, [id number] 00:00:00* Test Item Value Reference Range Interpretation Comme nts HPV HIGH RISK INTERP (test c ode = 89140) POSITIVE HPV 16 (test code = 31521) NEGATIVE HPV 18 (test code = 71752) NEGATIVE HPV, HR, OTHER GENOTYPES (te st code = 49895) POSITIVE Norman Howe Notes Date/Time Note Provider Source Norman Howe [facility]"
[2024-05-04] MEDS ORDERED: NA CHLORIDE 0.9% 1,000 ML ONE (17:29)
[2024-05-04 17:45] LABS: Absolute Basophils 0.1 K/uL (0-0.5); Absolute Eosinophils 0.2 K/uL (0-0.5); Absolute Lymphocytes (CBC) 1.9 K/uL (0.7-4.9); Absolute Monocytes 0.5 K/uL (0.1-1.3); Absolute Neutrophil 5.4 K/uL (1.8-8.0); Basophils % 0.7 % (0-1.3); Eosinophils % 2.1 % (0-4.4); Hematocrit 37.7 % (36.0-45.0); Hemoglobin 12.5 g/dL (12.0-15.0); Lymphocytes % 23.3 % (15.3-44.8); MCH 29.2 pg (27.0-35.0); MCHC 33.1 g/dL (32.0-36.0); MPV 8.9 fL (7.6-11.3); Monocytes % 6.3 % (3.3-12.3); Neutrophils % 67.6 % (41.7-73.7); Platelets 305 thou/uL (152-406); RBC Red Blood Cell Count 4.28 M/uL (3.86-4.86); Red Cell Distribution Width 14.9 % (12.1-15.2)
[2024-05-04 18:00] LABS: Albumin 4.6 g/dL (3.4-5.0); Albumin/Globulin Ratio 1.2 (1.1-1.8); Anion Gap 11.3 mEq/L (5.0-15.0); Bilirubin Total 0.7 mg/dL (0.2-1.0); Globulin 3.8 g/dL (2.3-3.5); Potassium 3.3 mEq/L (3.5-5.1); Protein, Total 8.4 g/dL (6.4-8.2)
--- NOTE | 2024-05-04 18:14 | ER ---
Nurse's Notes [facility] Name: Irma Mckeon Age: 33 yrs Sex: Female : 1990 Arrival Date: 05/04/2024 Time: 17:05 Bed 19 Private MD: Diagnosis: Vasovagal Syncope;Hypokalemia Presentation: 05/04 17:11 Chief complaint: Patient states: Pt states she was walking in [employer] and felt like she dd2 was going to pass out, felt lightheaded and numbness rt arm. States chest pain x 2-3 days. Coronavirus screen: At this time, the client does not indicate any symptoms associated with coronavirus-19. Ebola Screen: No symptoms or risks identified at this time. Initial Sepsis Screen: Does the patient meet any 2 criteria? No. Patient's initial sepsis screen is negative. Does the patient have a suspected source of infection? No. Patient's initial sepsis screen is negative. Risk Assessment: Do you want to hurt yourself or someone else? Patient reports no desire to harm self or others. Onset of symptoms is unknown. 17:11 Method Of Arrival: Ambulatory dd2 17:11 Acuity: ELLEN 3 dd2 Triage Assessment: 17:15 General: Appears in no apparent distress. Behavior is cooperative, anxious. Pain: dd2 Complains of pain in anterior aspect of left upper chest and mid-sternal area. Cardiovascular: Reports chest pain. 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 - Infectious Disease History:: Denies. - Social history:: Smoking status: Reported history of juuling and/or vaping. - Family history:: not pertinent. Screenin:15 [facility] ED Fall Risk Assessment (Adult) History of falling in the last 3 months, ar6 including since admission No falls in past 3 months (0 pts) Confusion or Disorientation No (0 pts) Intoxicated or Sedated No (0 pts) Impaired Gait No (0 pts) Mobility Assist Device Used No (0 pt) Altered Elimination No (0 pt) Score/Fall Risk Level 0 - 2 = Low Risk. Abuse screen: Denies threats or abuse. Denies injuries from another. Nutritional screening: No deficits noted. Tuberculosis screening: No symptoms or risk factors identified. Assessment: 17:15 General: Appears in no apparent distress. uncomfortable, Behavior is calm, cooperative, ar6 appropriate for age. Pain: Complains of pain in chest Pain does not radiate. Pain currently is 2 out of 10 on a pain scale. Quality of pain is described as heavy, pressure, Pain began 1 hour ago. Neuro: Level of Consciousness is awake, alert, obeys commands, Oriented to person, place, time, situation. Cardiovascular: Reports chest pain, since x1 hour previous; reports dizziness and light headedness Capillary refill < 3 seconds Rhythm is regular. Respiratory: Airway is patent. GI: Abdomen is round non-distended. : No signs and/or symptoms were reported regarding the genitourinary system. EENT: Oral mucosa is moist. Derm: Skin is intact, is healthy with good turgor, Skin is dry, Skin is pink, warm \T\ dry. Musculoskeletal: No signs and/or symptoms reported regarding the musculoskeletal system. Vital Signs: 17:11 BP 137 / 90; Pulse 86; Resp 16; Temp 97.2; Pulse Ox 100% ; dd2 17:15 BP 137 / 88; Pulse 80; Resp 18; Temp 98.6; Pulse Ox 100% on R/A; ar6 18:28 BP 108 / 72; Pulse 77; Resp 18; Pulse Ox 100% ; ar6 ED Course: 17:07 Patient arrived in ED. mg5 17:08 Benson Caldera MD is Attending Physician. rt 17:15 Triage completed. dd2 17:15 No apparent distress. Awaiting lab results, Awaiting radiology results. ar6 17:15 Arm band placed on right wrist. Patient placed in an exam room, on a stretcher, on dd2 playground monitor, on pulse oximetry, Patient notified of wait time. 17:15 Patient has correct armband on for positive identification. Placed in gown. Bed in low ar6 position. Call light in reach. Side rails up X 1. Provided Education on: medication iv fluids. Client placed on continuous cardiac and pulse oximetry monitoring. NIBP monitoring applied. Door closed. Noise minimized. Lights dimmed. Moved to private room. Warm blanket given. Pillow given. Head of bed elevated. 17:15 No provider procedures requiring assistance completed. Inserted saline lock: 20 gauge ar6 in left antecubital area, using aseptic technique. Blood collected. Flushed with 10 mL NS. 17:20 EKG done, by ED staff, reviewed by Benson Caldera MD. mb9 17:27 Eunice Santana, RN is Primary Nurse. ar6 17:37 Magnesium Sent. ar6 17:37 CMP Sent. ar6 17:37 CBC with Diff Sent. ar6 17:37 Test, Serum Sent. ar6 17:46 Chest Single View XRAY In Process Unspecified. EDMS 18:05 Attending Physician role handed off by Benson Caldera MD ec2 18:05 Ryan Vasques MD is Attending Physician. ec2 18:29 IV discontinued, intact, bleeding controlled, No redness/swelling at site. Pressure ar6 dressing applied. Patient maintains SpO2 saturation greater than 95% on room air. Administered Medications: 17:30 Drug: NS 0.9% IV 1000 ml IV at 1 bolus Per protocol; 1000 mL bolus Route: IV; Rate: 1 ar6 bolus; Site: left antecubital; 18:18 Follow up: Response: No adverse reaction; IV Status: Completed infusion; IV Intake: ar6 1000ml 18:12 Drug: Potassium Chloride PO 40 mEq PO once Route: PO; ar6 18:27 Follow up: Response: No adverse reaction ar6 Medication: 17:15 VIS not applicable for this client. ar6 Intake: 18:18 IV: 1000ml; Total: 1000ml. ar6 Outcome: 18:13 Discharge ordered by . ec2 18:29 Discharged to home ambulatory, ar6 18:29 Condition: good 18:29 Discharge instructions given to patient, significant other, Instructed on discharge instructions, follow up and referral plans. Demonstrated understanding of instructions, follow-up care, 18:30 Patient left the ED. ar6 Signatures: Dispatcher [employer] Janneth Bro RN RN mb9 Benson Caldera MD MD Frieda Chatterjee mg5 Ryan Vasques MD MD ec2 Eunice Santana RN RN ar6 ANGELA ESTRADA RN RN dd2
--- NOTE | 2024-05-04 18:14 | EDPHYS ---
Physician Documentation [facility] Name: Irma Mckeon Age: 33 yrs Sex: Female : 1990 Arrival Date: 05/04/2024 Time: 17:05 Bed 19 Private MD: ED Physician Ryan Vasques HPI: 05/04 17:38 This 33 yrs old Female presents to ER via Ambulatory with complaints of Chest rt Pain, Numbness Of Arm, Dizziness. 17:38 She statesPatient presents to the ED with near syncope, described as lightheadedness rt starting 30 minutes ago when she was walking in [employer]. She is having chest pain for the past 3 days but states that she believes it is muscular in nature. Did not complete lose consciousness but states that it gets worse when she stands up. Reports a numbness to her left shoulder but denies numbness to the rest of the arm. Denies other numbness, weakness. Denies other acute complaints at this time, symptoms are moderate in severity, no other aggravating or alleviating factors.. 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 - Infectious Disease History:: Denies. - Social history:: Smoking status: Reported history of juuling and/or vaping. - Family history:: not pertinent. ROS: 17:38 Constitutional: Negative for fever, chills, and weight loss, Cardiovascular: Negative rt for chest pain, palpitations, and edema, Respiratory: Negative for shortness of breath, cough, wheezing, and pleuritic chest pain, Abdomen/GI: Negative for abdominal pain, nausea, vomiting, diarrhea, and constipation, MS/Extremity: Negative for injury and deformity, Skin: Negative for injury, rash, and discoloration, 17:38 Neuro: Positive for near syncope, Negative for loss of consciousness, Exam: 17:38 Constitutional: This is a well developed, well nourished patient who is awake, alert, rt and in no acute distress. Head/Face: Normocephalic, atraumatic. Chest/axilla: Normal chest wall appearance and motion. Nontender with no deformity. No lesions are appreciated. Cardiovascular: Regular rate and rhythm with a normal S1 and S2. No gallops, murmurs, or rubs. Normal PMI, no JVD. No pulse deficits. Respiratory: Lungs have equal breath sounds bilaterally, clear to auscultation and percussion. No rales, rhonchi or wheezes noted. No increased work of breathing, no retractions or nasal flaring. Abdomen/GI: Soft, non-tender, with normal bowel sounds. No distension or tympany. No guarding or rebound. No evidence of tenderness throughout. Skin: Warm, dry with normal turgor. Normal color with no rashes, no lesions, and no evidence of cellulitis. MS/ Extremity: Pulses equal, no cyanosis. Neurovascular intact. Full, normal range of motion. 17:38 Neuro: Cranial nerves II through XII intact, speech normal, strength and sensation intact in upper and lower extremity, 17:54 ECG was reviewed by the Attending Physician. rt Vital Signs: 17:11 BP 137 / 90; Pulse 86; Resp 16; Temp 97.2; Pulse Ox 100% ; dd2 17:15 BP 137 / 88; Pulse 80; Resp 18; Temp 98.6; Pulse Ox 100% on R/A; ar6 18:28 BP 108 / 72; Pulse 77; Resp 18; Pulse Ox 100% ; ar6 MDM: 17:17 Patient medically screened. rt 18:06 Data reviewed: vital signs. ED course: Patient signed out to me by previous physician, ec2 in brief arrives today for evaluation of lightheadedness. Lab work is unrevealing, chest x-ray independently reviewed and interpreted by me, shows no acute intrathoracic process. EKG shows normal sinus rhythm, rate of 97, no acute ST segment elevation, intervals are nonconcerning.. 18:13 ED course: test negative. Will discharge home, have patient follow-up ec2 outpatient expectantly. Presentations with vasovagal syncope.. 05/04 17:26 Order name: CBC with Diff; Complete Time: 17:57 rt 05/04 17:26 Order name: CMP; Complete Time: 18:04 rt 05/04 17:26 Order name: Magnesium; Complete Time: 18:04 rt 05/04 17:26 Order name: Test, Serum; Complete Time: 18:12 rt 05/04 17:26 Order name: Chest Single View XRAY rt 05/04 17:26 Order name: EKG - Nurse/Tech; Complete Time: 17:27 rt EC:54 Rate is 97 beats/min. Rhythm is regular, Normal Sinus Rhythm with No ectopy. QRS [place] rt is Normal. [place] interval is normal. QRS interval is normal. QT interval is normal. No Q waves. T waves are Normal. No ST changes noted. Interpreted by me. Administered Medications: 17:30 Drug: NS 0.9% IV 1000 ml IV at 1 bolus Per protocol; 1000 mL bolus Route: IV; Rate: 1 ar6 bolus; Site: left antecubital; 18:18 Follow up: Response: No adverse reaction; IV Status: Completed infusion; IV Intake: ar6 1000ml 18:12 Drug: Potassium Chloride PO 40 mEq PO once Route: PO; ar6 18:27 Follow up: Response: No adverse reaction ar6 Disposition Summary: 05/04/24 18:13 Discharge Ordered Notes: Location: Home ec2 Condition: Stable ec2 Diagnosis - Vasovagal Syncope ec2 - Hypokalemia ec2 Followup: ec2 - With: Private Physician - When: - Reason: Re-evaluation by your physician Discharge Instructions: - Discharge Summary Sheet ec2 - Potassium Content of Foods ec2 - Syncope ec2 Forms: - Medication Reconciliation Form ec2 - Antibiotic Education ec2 - Prescription Opioid Use ec2 - Patient Portal Instructions ec2 - Leadership Thank You Letter ec2 Signatures: Dispatcher [employer] EDBenson Akbar MD MD rt Ryan Vasques MD MD ec2 Eunice Santana RN RN ar6 ANGELA ESTRADA RN RN dd2 Corrections: (The following items were deleted from the chart) 17: 17:27 CBC+H.LAB.BRZ ordered. EDMS EDMS 17:27 17:27 COMPREHENSIVE METABOLIC PANEL+C.LAB.BRZ ordered. EDMS EDMS 17:27 17:27 MAGNESIUM+C.LAB.BRZ ordered. EDMS EDMS 17:27 17:27 TEST, SERUM+SC.LAB.BRZ ordered. EDMS EDMS 17:27 17:27 Chest Single View+RAD.RAD.BRZ ordered. EDMS EDMS
[2024-05-04] MEDS ORDERED: POTASSIUM CL SA 10 MEQ TAB PO ONE (18:15)
[2024-05-04 18:39] VITALS: O2SAT 100
[2024-05-04 18:41] VITALS: TEMP 98.6
[2024-05-04 18:43] VITALS: BP 108/72
--- NOTE | 2024-05-04 18:57 | RAD REPORT ---
EXAM DESCRIPTION: RADChest Single View05/04/2024 5:44 pm CLINICAL HISTORY: near syncope COMPARISON: Chest Single View dated 04/15/2023 TECHNIQUE: Portable AP view of the chest. FINDINGS: The lungs are clear. No pneumothorax or effusion. The cardiomediastinal contours are unre markable. IMPRESSION: No acute cardiopulmonary process.
--- NOTE | 2024-05-05 13:28 | EKG ---
Test Date: 2024-05-04 Test Time: 17:21:14 Building Mechanic: MB MEASUREMENT RESULTS: Intervals: Rate: 97 VT: 130 QRSD: 86 QT: 362 QTc: 459 [place]: P: 50 VT: 130 QRS: 42 T: 53 INTERPRETIVE STATEMENTS: Normal sinus rhythm Normal ECG Compared to ECG 04/16/2023 00:09:15 Sinus arrhythmia no longer present Electronically Signed On 05-05-24 13:26:27 CDT by Devin Vergara
== END 2024-05-04 18:30 | disposition home or self-care (01) ==
LOC: ER 17:05
DX: R55 Syncope and collapse (principal); E87.6 Hypokalemia
CPT/HCPCS: 93005; 85025; 36415; 83735; 84703; 80053; 71045; 96360; 99285; J7030

== ENCOUNTER 2024-08-31 18:40 | Emergency (ER) | payer OTHER ==
--- OUTSIDE RECORDS SUMMARY | 2024-08-31 18:44 | XMS REPORT | Continuity of Care Document ---
Author Name Unknown Address [address] [facility]. [address] [place] [address] [facility] Address [address] [facility] [address] [place] [address] Care Team Providers Care Yarn Salvager Name Role Phone Guicho Jeffers M.D.mberly Primary Care Physician HARITHA ANDERSON Attending Clinician Unavailable HARITHA ANDERSON Attending Clinician Unavailable BETSEY ÁLVAREZ Attending Clinician Unavailable Haritha Anderson MD Attending Clinician [phone] Lab, Ang - Simeon Attending Clinician Unavailable Catrachita An RN Attending Clinician UnavailSilvia Holman MD Attending Clinician [phone] SILVIA PARTIDA Attending Clinician Unavailable JENNY BURRIS Attending Clinician Unavailable JENNY BURRIS CAM Attending Clinician Unavailable 2, [facility] Lab Attending Clinician Unavailable ENRIQUE CACERES Attending Clinician Unavailable Enrique Caceres MD Attending Clinician [phone] Doctor Unassigned, [place] Attending Clinician U janet Mccollum MD, Joceline BaughHIsmael Attending Clinician [phone] PRINCESS DAHL Attending Clinician Unavailable Princess Dahl MD Attending Clinician [phone] Payers Payer Name Policy Type Policy Number Effective Date Expirati on Date Source [facility] [id number] 2024 00:00:00 Problems Condition Name Condition Details Condition Category Status Onset Date Resolution Date Last Treatment Date Treating Clinician Comments Source History of maternal blood transfusio n, currently History of maternal blood transfusio n, currently Disease Active 2023-09 0-29 00:00: 00 [facility] High-risk in first trimester High-risk in first trimester Disease Active 2023-09 0- 00:00: 00 [facility] 7 weeks gestation of 7 weeks gestation of Disease Active 2023-09 0 00:00: 00 [facility] Previous section complicati ng Previous section complicati ng Disease Active 2023-09 0 00:00: 00 [facility] Allergies, Adverse Reactions, Alerts Allergy Name Allergy Type Status Severity Reaction(s) Onset Date Inactive Date Treating Clinician Comments Source NO KNOWN ALLERGIE S Drug Class Active [facility] Social History Social Habit Start Date Stop Date Quantity Comments Source ASSERTION 2024-05-17 00:00:00 [facility] History of tobacco use Cigarette Smoker [facility] Alcoholic beverage intake 2024-08-16 00:00:00 2024-08-16 00:00:00 Ex-drinker (finding) [facility] History of Social function 2024-04-25 00:00:00 2024-04-25 00:00:00 [facility] Tobacco use and exposure 2024-03-24 00:00:00 2024-03-24 00:00:00 Smokeless tobacco non-user [facility] Sex assigned at 1990 00:00:00 1990 00:00:00 [facility] Smoking Status Start Date Stop Date Source Tobacco smoking consumption unknown [facility] Ex-smoker 2024-03-24 00:00:00 2024-03-24 00:00:00 [facility] Smokes tobacco daily 2023-03-08 00:00:00 [facility] Medications Ordered Medication Name Filled Medication Name Start Date Stop Date Current Medication? Ordering Clinician Indication Dosage Frequency Signature (SIG) Comments Components Source ampicillin 500 mg capsule 2023-09 2-10 00:00: 00 08-30 05:59 :00 Yes [id number] 500mg Take 1 capsule by mouth every 8 (eight) hours for 7 days. [facility] vitamin w/FA tablet 2023-09 204 09:06: 14 Yes 1{tbl} Take 1 tablet by mouth in the morning. [facility] cephALEXin 500 mg capsule 2023-09 025 00:00: 00 07-15 04:59 :00 Yes [id number] 500mg Take 1 capsule by mouth in the morning and 1 capsule at noon and 1 capsule in the evening. Do all this for 7 days. [facility] docosahexae noic acid/epa (FISH OIL ORAL) 05-26 10:27: 00 Yes Take by mouth. [facility] TAKE 1 CAPSULE BY MOUTH EVERY 12 [...] 00:00: 00 01-03 00:00 :00 No 2 Norman Howe TAKE 1 TABLET TWICE DAILY UNTIL FINISHED. 04-21 00:00: 00 01-03 00:00 :00 No 500 Norman Howe TAKE ONE NOW AND REPEAT IN 3 DAYS 04-20 00:00: 00 01-03 00:00 :00 No 150 Norman Howe TAKE 1 TABLET BY MOUTH TWICE DAILY 02-22 00:00: 00 Yes Norman Howe KCL 20 mEq/15 mL solution 40 mEq 02-19 08:30: 00 02-19 08:01 :00 No 40meq 40 mEq, Oral, ONCE, 1 dose, On Wed02/19/23 at 0330, MIRA [facility] TAKE 1 CAPSULE BY MOUTH TWICE A DAY 12-30 00:00: 00 Yes Norman Howe TAKE 1 CAPSULE BY MOUTH EVERY 8 HOURS FOR 10 DAYS. 2021-09 2- 00:00: 00 Yes Norman Howe Nexplanon 68 mg subdermal implant 01-27 00:00: 00 Yes 1mg Norman Howe Vital Signs Vital Name Observation Time Observation Value Comments S ource Systolic blood pressure 2024-08-16 15:01:00 127 mm[Hg] [facility] Diastolic blood pressure 2024-08-16 15:01:00 81 mm[Hg] [facility] Heart rate 2024-08-16 15:01:00 96 [facility] Body temperature 2024-08-16 15:01:00 36.78 Sarina [facility] Respiratory rate 2024-08-16 15:01:00 16 /min [facility] Body height 2024-08-16 15:01:00 154.9 cm [facility] Body weight 2024-08-16 15:01:00 73.528 kg [facility] BMI 2024-08-16 15:01:00 30.63 kg/m2 [facility] Systolic blood pressure 2024-07-11 18:01:00 136 mm[Hg] [facility] Diastolic blood pressure 2024-07-11 18:01:00 82 mm[Hg] [facility] Heart rate 2024-07-11 18:01:00 93 /min [facility]ive [facility] Respiratory rate 2024-07-11 18:01:00 18 /min [facility] Body height 2024-07-11 18:01:00 154.9 cm [facility] Body weight 2024-07-11 18:01:00 72.213 kg [facility] BMI 2024-07-11 18:01:00 30.08 kg/m2 [facility] Systolic blood pressure 2024-06-21 16:08:00 118 mm[Hg] [facility] Diastolic blood pressure 2024-06-21 16:08:00 76 mm[Hg] [facility] Heart rate 2024-06-21 16:08:00 77 /min [facility] 2024-06-21 16:08:00 18 /min [facility] Body height 2024-06-21 16:08:00 154.9 cm [facility] Body weight 2024-06-21 16:08:00 71.532 kg Univ [facility] BMI 2024-06-21 16:08:00 29.80 kg/m2 Univ [facility] Systolic blood pressure 2024-06-09 19:16:00 134 mm[Hg] [facility] Diastolic blood pressure 2024-06-09 19:16:00 83 mm[Hg] [facility] Heart rate 2024-06-09 19:16:00 84 /min [facility] rate 2024-06-09 19:16:00 16 /min [facility] Body height 2024-06-09 19:16:00 154.9 cm [facility] Body weight 2024-06-09 19:16:00 71.033 kg Univ [facility] BMI 2024-06-09 19:16:00 29.59 kg/m2 Univ [facility] Systolic blood pressure 2024-05-26 15:14:00 127 mm[Hg] [facility] Diastolic blood pressure 2024-05-26 15:14:00 77 mm[Hg] [facility] Heart rate 2024-05-26 15:14:00 91 /min Unive [facility] Body temperature 2024-05-26 15:14:00 36.56 Sarina [facility] Respiratory rate 2024-05-26 15:14:00 18 /min [facility] Body height 2024-05-26 15:14:00 154.9 cm [facility] Body weight 2024-05-26 15:14:00 69.854 kg Univ [facility] BMI 2024-05-26 15:14:00 29.10 kg/m2 Univ [facility] Systolic blood pressure 2024-04-25 15:06:00 139 mm[Hg] [facility] Diastolic blood pressure 2024-04-25 15:06:00 88 mm[Hg] [facility] Heart rate 2024-04-25 15:06:00 88 /min Unive [facility] Body temperature 2024-04-25 15:06:00 36.83 Sarina [facility] Respiratory rate 2024-04-25 15:06:00 18 /min [facility] Body height 2024-04-25 15:06:00 154.9 cm [facility] Body weight 2024-04-25 15:06:00 70.852 kg Univ [facility] BMI 2024-04-25 15:06:00 29.51 kg/m2 Univ [facility] Systolic blood pressure 2024-03-24 14:14:00 125 mm[Hg] [facility] Diastolic blood pressure 2024-03-24 14:14:00 84 mm[Hg] [facility] Heart rate 2024-03-24 14:14:00 79 /min Unive [facility] Body temperature 2024-03-24 14:14:00 36.44 Sarina [facility] Body height 2024-03-24 14:14:00 154.9 cm Univ [facility] Body weight 2024-03-24 14:14:00 71.351 kg Univ [facility] BMI 2024-03-24 14:14:00 29.72 kg/m2 Univ [facility] Systolic blood pressure 2023-03-08 14:36:00 117 mm[Hg] [facility] Diastolic blood pressure 2023-03-08 14:36:00 83 mm[Hg] [facility] Heart rate 2023-03-08 14:36:00 76 /min Unive [facility] Body temperature 2023-03-08 14:36:00 36.61 Sarina [facility] Respiratory rate 2023-03-08 14:36:00 17 /min [facility] Body height 2023-03-08 14:36:00 154.9 cm [facility] Body weight 2023-03-08 14:36:00 54.885 kg [facility] BMI 2023-03-08 14:36:00 22.86 kg/m2 [facility] Oxygen saturation in Arterial blood by Pulse oximetry 2023-03-08 14:36:00 98 /min [facility] Systolic blood pressure 2023-02-19 07:00:00 111 mm[Hg] [facility] Diastolic blood pressure 2023-02-19 07:00:00 71 mm[Hg] [facility] Heart rate 2023-02-19 07:00:00 73 /min [facility] Respiratory rate 2023-02-19 07:00:00 19 /min [facility] Oxygen saturation in Arterial blood by Pulse oximetry 2023-02-19 07:00:00 93 /min [facility] Body temperature 2023-02-19 05:34:00 37.17 Sarina [facility] Body height 2023-02-19 05:34:00 154.9 cm [facility] Body weight 2023-02-19 05:34:00 56.7 kg [facility] BMI 2023-02-19 05:34:00 23.62 kg/m2 [facility] BP Systolic 2023-12-20 08:52:00 135 mm[Hg] Step hen F Ridgeley BP Diastolic 2023-12-20 08:52:00 81 mm[Hg] Amaury phen F Shyam Weight Measured 2023-12-20 08:52:00 153.40 pounds Norman F Shyma Height Measured 2023-12-20 08:52:00 61.22 inches Norman F Shyam Body Temperature 2023-12-20 08:52:00 98.10 degrees Norman F Shyam Heart Rate 2023-12-20 08:52:00 80.00 /min Marci en F Shyam Respiratory Rate 2023-12-20 08:52:00 17.00 /min Norman F Shyam BP Systolic 2023-12-13 11:53:00 123 mm[Hg] Step hen F Ridgeley BP Diastolic 2023-12-13 11:53:00 81 mm[Hg] Amaury phen F Shyam Weight Measured 2023-12-13 11:53:00 154.40 pounds Norman F Shyam Height Measured 2023-12-13 11:53:00 61.22 inches Norman F Shyam Body Temperature 2023-12-13 11:53:00 97.50 degrees Norman F Shyam Heart Rate 2023-12-13 11:53:00 92.00 /min Marci en F Shyam Respiratory Rate 2023-12-13 11:53:00 18.00 /min Norman F Shyam BP Systolic 2023-12-02 14:03:00 126 [...] 2023-06-01 13:59:00 18.00 /min Norman F Shyam BP Systolic 2023-05-22 14:13:00 115 mm[Hg] Step hen F Shyam BP Diastolic 2023-05-22 14:13:00 75 mm[Hg] Amaury phen F Shyam Weight Measured 2023-05-22 14:13:00 126.80 pounds Norman F Shyam Height Measured 2023-05-22 14:13:00 61.22 inches Norman F Shyam Body Temperature 2023-05-22 14:13:00 98.00 degrees Norman F Shyam Heart Rate 2023-05-22 14:13:00 88.00 /min Marci en F Shyam Respiratory Rate 2023-05-22 14:13:00 16.00 /min Norman F Shyam BP Systolic 2023-04-20 10:24:00 114 [...] / Time Performed Performing Clinician Source POCT URINALYSIS W/O SPECIFIC GRAVITY 2024-08-16 14:58:00 AdumHaritha [facility] OB TRANSVAGINAL 2024-07-11 19:48:48 AdumHaritha [facility] OB TRANSVAGINAL 2024-06-21 17:31:00 AdumHaritha [facility] HEPATITIS B SURFACE ANTIGEN 2024-06-21 17:22:00 AdumHaritha [facility] HCV ANTIBODY 2024-06-21 17:22:00 AdumHaritha [facility] ADC OR BONNIE ONLY - RPR 2024-06-21 17:22:00 Adum, Haritha Chow [facility] HIV 1/2 AG-AB WITH REFLEX 2024-06-21 17:22:00 Adum, Haritha Chow [facility] POCT URINALYSIS W/O SPECIFIC GRAVITY 2024-06-21 00:00:00 Adum, Haritha Chow [facility] POCT URINALYSIS W/O SPECIFIC GRAVITY 2024-06-09 00:00:00 Adum, Haritha Chow [facility] POCT TEST 2024-05-26 00:00:00 Adum, Haritha Chow [facility] POCT URINALYSIS W/O SPECIFIC GRAVITY 2024-05-26 00:00:00 Adum, Haritha Chow [facility] POCT TEST 2024-04-25 00:00:00 Adum, Haritha Chow [facility] POCT TEST 2024-03-24 00:00:00 Adum, Haritha Chow [facility] CONSENT/REFUSAL FOR DIAGNOSIS AND TREATMENT 2023-03-08 14:16:27 Doctor Unassigned, [place] [facility] EKG-12 LEAD 2023-02-19 07:34:53 Princess Dahl [facility] LIPASE 2023-02-19 05:43:00 Princess Dahl [facility] TROPONIN I 2023-02-19 05:43:00 Princess Dahl [facility] THYROID STIMULATING HORMONE 2023-02-19 05:43:00 Princess Dahl [facility] COMP. METABOLIC PANEL (99943) 2023-02-19 05:43:00 Princess Dahl [facility] CBC WITH DIFF 2023-02-19 05:43:00 Princess Dahl [facility] URINALYSIS 2023-02-19 05:43:00 Princess Dahl [facility] Encounters Start Date/Time End Date/Time Encounter Type Admission Type Attending Clinicians Care Facility Care Department Encounter ID Source 2024-09-27 10:15:00 2024-09-27 10:15:00 Outpatient P [facility] [id number] [facility] 2024-08-31 00:00:00 2024-08-31 14:50:12 Telephone Adhelena Haritha Chow [facility] 1.2.840.114 350.1.13.10 4.2.7.2.686 [id number] [facility] 2024-08-22 00:00:00 2024-08-22 19:47:50 Case Management Adhelena Haritha Chow [facility] 1.2.840.114 350.1.13.10 4.2.7.2.686 [id number] [facility] 2024-08-16 11:00:00 2024-08-16 11:15:00 Septic Tank Setter Visit Lab, Eugene Anderson Haritha Claudine Lab, Eugene - Simeon [facility] 1.2840.114 350.1.13.10 4.2.7.2.686 [id number] [facility] 2024-08-16 11:00:00 2024-08-16 11:00:00 Outpatient R HARITHA ANDERSON VIVIAN [facility] [id number] [facility] 2024-08-16 09:15:00 2024-08-16 09:18:53 Routine Visit Adhelena Haritha Claudine [facility] 1.2.840.114 350.1.13.10 4.2.7.2.686 [id number] [facility] 2024-07-26 00:00:00 2024-07-26 08:52:48 Telephone Adhelena Haritha Chow [facility] 1.2.840.114 350.1.13.10 4.2.7.2.686 [id number] [facility] 2024-07-19 08:00:00 2024-07-19 08:15:00 Septic Tank Setter Visit Lab, Ang - Simeon Anderson Harithasalvador Gao, Ang - Simeon [facility] 1.114 350.1.13.10 4.2.7.2.686 [id number] [facility] 2024-07-19 08:00:00 2024-07-19 08:00:00 Outpatient R HARITHA ANDERSON [facility] [id number] [facility] 2024-07-11 10:15:00 2024-07-11 13:45:22 Outpatient R HARITHA ANDERSON [facility] [id number] [facility] 2024-07-11 10:15:00 2024-07-11 13:45:22 Routine Visit Haritha Anderson [facility] 1..114 350.1.13.10 4.2.7.2.686 [id number] [facility] 2024-07-10 00:00:00 2024-07-10 12:33:43 Telephone AdHaritha malik [facility] 1.114 350.1.13.10 4.2.7.2.686 [id number] [facility] 2024-07-10 00:00:00 2024-07-10 12:16:54 Nurse Triage Catrachita An Wendy [facility] 1..114 350.1.13.10 4.2.7.2.686 [id number] [facility] 2024-07-07 00:00:00 2024-07-10 08:11:26 [facility] 1.2.840.114 350.1.13.10 4.2.7.2.686 [id number] [facility] 2024-07-07 00:00:00 2024-07-07 16:47:58 Case Management Haritha Anderson [facility] 1.2840.114 350.1.13.10 4.2.7.2.686 [id number] [facility] 2024-07-05 08:15:00 2024-07-05 08:30:00 Septic Tank Setter Visit Lab, Silvia Malone, [facility] 1.2840.114 350.1.13.10 4.2.7.2.686 [id number] [facility] 2024-07-05 08:15:00 2024-07-05 08:15:00 Outpatient SILVIA NUNEZ [facility] [id number] [facility] 2024-06-27 00:00:00 2024-06-28 08:41:12 Telephone Haritha Anderson [facility] 1.2840.114 350.1.13.10 4.2.7.2.686 [id number] [facility] 2024-06-21 12:15:00 2024-06-21 15:22:05 Septic Tank Setter Visit Lab, Haritha Porter, [facility] 1.2840.114 350.1.13.10 4.2.7.2.686 [id number] [facility] 2024-06-21 11:15:00 2024-06-21 11:37:20 Outpatient HARITHA ORTIZ [facility] [id number] [facility] 2024-06-21 11:15:00 2024-06-21 11:37:20 Routine Visit Haritha Anderson [facility] 1.2.840.114 350.1.13.10 4.2.7.2.686 [id number] [facility] 2024-06-09 14:00:00 2024-06-09 15:07:02 Outpatient R ADUMHARITHA [facility] [id number] [facility] 2024-06-09 14:00:00 2024-06-09 15:07:02 Initial Visit Haritha Anderson [facility] 1.2.840.114 350.1.13.10 4.2.7.2.686 [id number] [facility] 2024-05-31 08:15:00 2024-05-31 08:30:00 Septic Tank Setter Visit 2, Adc Lab AdHaritha malik 2, [facility] Lab [facility] 1.2.840.114 350.1.13.10 4.2.7.2.686 [id number] [facility] 2024-05-31 08:15:00 2024-05-31 08:15:00 Outpatient R ADUMHARITHA [facility] [id number] [facility] 2024-05-29 08:15:00 2024-05-29 08:15:00 Septic Tank Setter Visit 2, Adc Lab AdHaritha malik 2, [facility] Lab [facility] 1.2.840.114 350.1.13.10 4.2.7.2.686 [id number] [facility] 2024-05-29 08:15:00 2024-05-29 08:10:20 Outpatient R ADUMHARITHA [facility] [id number] [facility] 2024-05-26 11:00:00 2024-05-26 11:00:00 Septic Tank Setter Visit 2, Adc Lab Haritha Anderson 2, Adc Lab [facility] 1.2.840.114 350.1.13.10 4.2.7.2.686 [id number] [facility] 2024-05-26 10:00:00 2024-05-26 10:39:47 Outpatient R NORMANUMHARITHA [facility] [id number] [facility] 2024-05-26 10:00:00 2024-05-26 10:39:47 Office Visit Haritha Anderson [facility] 1.2.840.114 350.1.13.10 4.2.7.2.686 [id number] [facility] 2024-04-25 10:00:00 2024-04-25 10:48:43 Outpatient R ADUMHARITHA [facility] [id number] [facility] 2024-04-25 10:00:00 2024-04-25 10:48:43 Office Visit Haritha nAderson [facility] 1.2.840.114 350.1.13.10 4.2.7.2.686 [id number] [facility] 2024-03-24 09:00:00 2024-03-24 09:34:56 Outpatient R ADUMHARITHA [facility] [id number] [facility] 2024-03-24 09:00:00 2024-03-24 09:34:56 Office Visit Haritha Anderson [facility] 1.2.840.114 350.1.13.10 4.2.7.2.686 [id number] [facility] 2024-03-21 08:00:00 2024-03-21 08:00:00 Outpatient R ADUM, NICHELLE KENIAN [facility] [id number] [facility] 2024-03-03 16:16:42 2024-03-03 16:16:42 Outpatient SFA SFA [id number] Norman Howe 2024-02-29 16:07:07 2024-02-29 16:07:07 Outpatient SFA SFA [id number] Norman Howe 2024-02-29 00:00:00 2024-02-29 00:00:00 Outpatient Visit SFA [id number] Norman Howe 2023-12-27 11:51:18 2023-12-27 11:51:18 Outpatient SFA SFA [id number] Norman Howe 2023-12-20 08:38:29 2023-12-20 08:38:29 Outpatient SFA SFA [id number] Norman Howe 2023-12-13 13:03:11 2023-12-13 13:03:11 Outpatient SFA SFA [id number] Norman Howe 2023 13:10:11 2023 13:10:11 Outpatient SFA SFA [id number] Norman Howe 2023-12-02 13:58:12 2023-12-02 13:58:12 Outpatient SFA SFA [id number] Norman Howe 2023-11-29 13:03:00 2023-11-29 13:03:00 Outpatient SFA SFA [id number] Norman Howe 2023-11-25 09:59:40 2023-11-25 09:59:40 Outpatient SFA SFA [id number] Norman Howe 2023-11-16 10:36:05 2023-11-16 10:36:05 Outpatient SFA SFA [id number] Norman Howe 2023-10-19 11:48:58 2023-10-19 11:48:58 Outpatient SFA SFA [id number] Norman Howe 2023-06-01 13:42:14 2023-06-01 13:42:14 Outpatient SFA SFA [id number] Norman Howe 2023-05-22 14:06:34 2023-05-22 14:06:34 Outpatient [facility] [id number] Norman Howe 2023-04-20 10:20:16 2023-04-20 10:20:16 Outpatient [facility] [id number] Norman Howe 2023-03-08 09:40:00 2023-03-08 09:52:30 [id number] 2023-03-08 09:40:00 2023-03-08 09:52:30 Office Visit Ricki [facility] BUILDING 1..840.114 350.1.13.10 4.2.7.2.686 [id number] [facility] 2023-03-08 00:00:00 2023-03-08 00:00:00 Orders Only Doctor Unassigned, [place] [facility] 1.840.114 350.1.13.10 4.2.7.2.686 [id number] [facility] 2023-02-22 00:00:00 2023-02-22 00:00:00 Telephone Joceline Mccollum [facility] 1..840.114 350.1.13.10 4.2.7.2.686 [id number] [facility] 2023-02-19 00:39:00 2023-02-19 03:09:00 Emergency [facility] [id number] [facility] 2023-02-19 00:39:00 2023-02-19 03:09:00 Emergency Deboradelmamoisés Faviolaghulam S [facility] 1.84.114 350.1.13.10 4.2.7.2.686 [id number] [facility] Results Test Description Test Time Test Comments Results Result Co mments Source [facility] Only - [id number] 09:17:59* Test Item Value Reference Range Interpretation Comme nts RPR (Qualitative) (test code = 33727-8) Nonreactive Nonreactive Lab Interpretation (test cod e = 93598-1) Normal [facility] Springs[facility]cv [id number] 00:19:58* Test Item Value Reference Range Interpretation Comme nts HCV Ab (test code = 38791-4) Negative HCV Semi-Quantitative (test code = 19463-5) 0.01 [facility] SpringsHepatitis B Surface [id number] 00:02:35 * Test Item Value Reference Range Interpretation Comme nts HBsAg Semi-Quantitative (sourav t code = 5195-3) 0.11 Negative [facility]HIV [facility]/2 Ag-Ab with [id number] 22:00:54* Test Item Value Reference Range Interpretation Comme nts HIV Semi-quantitative (test code = 49631-0) 0.15 Negative SWAPNA (test code = SWAPNA) Non-reactive for HIV-1 antigen and HIV-1/HIV-2 antibodies. ?No laboratory evidence of HIV infection. ?Repeat in 2-4 weeks if acute HIV infection is suspected. [facility] Urinalysis w/o Specific [id number] 16:05:00* Test Item Value Reference Range Interpretation Comme nts POCT PH U (test code = 3254) n/a 5-8 POCT U LEUK EST (test code = 3263) n/a Negative - Negative POCT U NIT (test code = 3262) n/a Negative - Negati ve POCT U PROT (test code = 3259) negative Negative - Negat matthew POCT U GLU (test code = 3256) negative Negative - Negati ve POCT U KETONE (test code = 3258) n/a Negative - Neg ative POCT U BLD (test code = 3257) n/a Negative - Negati ve [facility] Urinal[facility] w/o Specific [id number] 19:18:00* Test Item Value Reference Range Interpretation Comme nts POCT PH U (test code = 3254) n/a 5-8 POCT U LEUK EST (test code = 3263) n/a Negative - Negative POCT U NIT (test code = 3262) n/a Negative - Negati ve POCT U PROT (test code = 3259) negative Negative - Negat matthew POCT U GLU (test code = 3256) negative Negative - Negati ve POCT U KETONE (test code = 3258) n/a Negative - Neg ative POCT U BLD (test code = 3257) n/a Negative - Negati ve [facility] Urinalysis w/o Specific [id number] 15:28:00* Test Item Value Reference Range Interpretation Comme nts POCT PH U (test code = 3254) n/a 5-8 POCT U LEUK EST (test code = 3263) n/a Negative - N egative POCT U NIT (test code = 3262) n/a Negative - Negati ve POCT U PROT (test code = 3259) neg Negative - Negat matthew POCT U GLU (test code = 3256) 100 Negative - Negati ve POCT U KETONE (test code = 3258) n/a Negative - Neg ative POCT U BLD (test code = 3257) n/a Negative - Negati ve [facility] [id number] 15:23:00* Test Item Value Reference Range Interpretation Comme nts POCT PREG (test code = 1605) Positive Very faint posit matthew On board controls acceptable with C Line (test code = 3574) Yes POCT PREG LOT # (test code = 3575) POCT PREG TEST DATE (test code = 3576) [facility] [id number] 15:50:00* Test Item Value Reference Range Interpretation Comme nts POCT PREG (test code = 1605) Negative On board controls acceptable with C Line (test code = 3574) Yes POCT PREG LOT # (test code = 3575) POCT PREG TEST DATE ( test code = 3576) [facility] [id number] 14:23:00* Test Item Value Reference Range Interpretation Comme nts POCT PREG (test code = 1605) Negative On board controls acceptable with C Line (test code = 3574) Yes POCT PREG LOT # (test code = 3575) POCT PREG TEST DATE ( test code = 3576) [facility] SpringsHCG, [id number] 04:31:49* Test Item Value Reference Range Interpretation [...] . . . . . . MIU/ML 1-2XRBU-UQDOELFJZF FEMALES . . . . . . . . . . . . MIU/ML <=7 UNLESS OTHERWISE INDICATED, ALL TESTING PERFORMED AT [facility] [address] [place] [address] PRODUCT SUPPORT MANAGER: KAROL OBREGON M.D. CLIA NUMBER [id number] [facility] [place]. [id number] HCG, [id number] 05:13:01* Test Item Value Reference Range Interpretation [...] . . . . . . MIU/ML 3-5BXTA-NMPSFGHZQZ FEMALES . . . . . . . . . . . . MIU/ML <=7 UNLESS OTHERWISE INDICATED, ALL TESTING PERFORMED AT [facility] [address] [place] [address] PRODUCT SUPPORT MANAGER: KAROL OBREGON M.D. CLIA NUMBER [id number] [facility] [place]. [id number] HCG, [id number] 00:00:00* Test Item Value Reference Range Interpretation Comme [facility] HCG, QUANTITATIVE (test code = 2506) 166 MIU/ML Norman HoweHCG, [id number] 04:29:58* Test Item Value Reference Range Interpretation Comme [facility] HCG, QUANTITATIVE (test code = 2506) [...] . . . . . . MIU/ML 8-3ICZG-LUVHGGMJMV FEMALES . . . . . . . . . . . . MIU/ML <=7 UNLESS OTHERWISE INDICATED, ALL TESTING PERFORMED AT [facility] [address] [place], [place] [address] PRODUCT SUPPORT MANAGER: Emmett HODGESIA NUMBER [id number] [place]. [id number] HCG, [id number] 00:00:00* Test Item Value Reference Range Interpretation Comme nts HCG, QUANTITATIVE (test code = 2506) 1259 MIU/ML Norman HoweHCG, [id number] 01:13:42* Test Item Value Reference Range Interpretation [...] . . . . . . MIU/ML 5-0VEFA-QOGRPOYHWD FEMALES . . . . . . . . . . . . MIU/ML <=7 UNLESS OTHERWISE INDICATED, ALL TESTING PERFORMED AT [facility] [address] [place] [address] PRODUCT SUPPORT MANAGER: KAROL OBREGON M.D. CLIA NUMBER [id number] CAP ACCREDITATION NO. HCG, [id number] 00:00:00* Test Item Value Reference Range Interpretation Comme nts HCG, QUANTITATIVE (test code = 2506) 6691 MIU/ML Norman MariscalG, [id number] 06:38:37* Test Item Value Reference Range Interpretation [...] . . . . . . MIU/ML 0-3KGDS-GXVXMLXTEW FEMALES . . . . . . . . . . . . MIU/ML <=7 UNLESS OTHERWISE INDICATED, ALL TESTING PERFORMED AT [facility] [address] [place] [address] PRODUCT SUPPORT MANAGER: KAROL OBREGON M.D. CLIA NUMBER [id number] [place]. [id number] HCG, [id number] 00:00:00* Test Item Value Reference Range Interpretation Comme nts HCG, QUANTITATIVE (test code = 2506) 7334 MIU/ML Norman MariscalG, [id number] 06:34:59* Test Item Value Reference Range Interpretation Comme nts HCG, QUANTITATIVE (test code = 2506) 23227 MIU/ML SEE BELOW EXPEC BHARTI VALUES FOR [...] . . . . . . MIU/ML 7-9AAPT-XVUENAMUZY FEMALES . . . . . . . . . . . . MIU/ML <=7 UNLESS OTHERWISE INDICATED, ALL TESTING PERFORMED AT [facility] [address] [place] [address] PRODUCT SUPPORT MANAGER: KAROL OBREGON M.D. CLIA NUMBER [id number] [facility] [place]. [id number] HCG, [id number] 00:00:00* Test Item Value Reference Range Interpretation Comme [facility] HCG, QUANTITATIVE (test code = 2506) 50376 MIU/ML Norman HoweG, [id number] 06:37:10* Test Item Value Reference Range Interpretation Comme [facility] HCG, QUANTITATIVE (test code = 2506) 40014 MIU/ML SEE BELOW EXPEC BHARTI VALUES FOR [...] . . . . . . MIU/ML 2-2IDSL-YWEOMLRJAH FEMALES . . . . . . . . . . . . MIU/ML <=7 UNLESS OTHERWISE INDICATED, ALL TESTING PERFORMED AT [facility] [address] [place] [address] PRODUCT SUPPORT MANAGER: KAORL OBREGON M.D. [place] NUMBER [id number] [facility] [place]. [id number] HCG, [id number] 00:00:00* Test Item Value Reference Range Interpretation Comme nts HCG, QUANTITATIVE (test code = 2506) 67354 MIU/ML Norman HoweCULTURE, [id number] 10:08:14SPECIMEN NUMBER: [id number] CULTURE, URINE SPECIMEN NUMBER: [id number] SPECIMEN COMMENT: URINE SOURCE: URINE REPORT STATUS: FINAL FINAL REPORT: 11/18/2023 50-100,000 CFU/ML MIXED MICROBIAL POPULATION PRESENT, NO PREDOMINATING ORGANISMS;PROBABLE CONTAMINANTS.CULTURE, [id number] 00:00:00* Test Item Value Reference Range Interpretation Comme nts CULTURE, URINE (test code = 71298) SPECIMEN NUMBER: [id number] oNrman HoweCT/NG, NAAT, [id number] 18:02:14* Test Item Value Reference Range Interpretation Comme nts CHLAMYDIA, NAAT, URINE (test code = 86167) NEGATIVE NEGATIVE Testing is perfo rmed with Mal SUDHIR 6800/8800 systems usingreal-time polymerase chain reaction (PCR) method. A negative result does not exclude low level infection, specimensampling error, or collection error. GONORRHEA, NAAT, URINE (test code = 91145) NEGATIVE NEGATIVE Testing is perfo rmed with Mal SUDHIR 6800/8800 systems usingreal-time polymerase chain reaction (PCR) method. A negative result does not exclude low level infection, specimensampling error, or collection error. HEMOGLOBIN [id number] 14:26:55* Test Item Value Reference Range Interpretation Comme nts HEMOGLOBIN A1 (test code = 2575) 97.3 % 95.0-98.5 HEMOGLOBIN A2 (test code = 2576) 2.7 % 1.6-3.7 HEMOGLOBIN F () (test code = 2722) 0.0 % 0.0-2.0 HEMOGLOBIN S (test code = 2724) NONE % NONE DETECTED HEMOGLOBIN C (test code = 2726) NONE % NONE DETECTED OTHER HEMOGLOBIN VARIANT (test code = 90120) NONE DETEC % NONE DETECTED PATHOLOGIST'S INTERPRETATION (test code = 2577) (NOTE) NO ABNORMAL HEMOGLOBINS IDENTIFIED. KAROL OBREGON M.D. VARICELLA ZOSTER [id number] 13:17:04* Test Item Value Reference Range Interpretation Comme nts VARICELLA ZOSTER IgG (test code = 98210) 132 INDEX SEE BELOW L INTERPRETATI ON [...] INDEX >=165 DRUG ABUSE SCREEN 10 REFLEX [id number] 05:07:21* Test Item Value Reference Range Interpretation Comme nts AMPHETAMINES (test code = 3201) NEGATIVE NEGATIVE BARBITURATES (test code = 3202) NEGATIVE NEGATIVE BENZODIAZEPINES (test code = 3203) NEGATIVE NEGATIVE CANNABINOIDS (test code = 3204) NEGATIVE NEGATIVE COCAINE METABOLITE (test code = 3205) NEGATIVE NEGATIVE OPIATES (test code = 3209) NEGATIVE NEGATIVE OXYCODONE (test code = 15127) NEGATIVE NEGATIVE PHENCYCLIDINE (test code = 3210) NEGATIVE NEGATIVE METHADONE (test code = 3207) NEGATIVE NEGATIVE BUPRENORPHINE (test code = 22060) NEGATIVE NEGATIVE SOURCE (test code = 495864) URINE SEE BELOW FO R THRESHOLDS AND [...] or contact the laboratory within specimen stability toforhawthorne for confirmatory testing. This test is specified for medicalpurposes only. It is not valid for forensic use. UNLESS OTHERWISE INDICATED, ALL TESTING PERFORMED AT [facility] [address] [place] [address] PRODUCT SUPPORT MANAGER: KAROL OBREGON M.D. CLIA NUMBER [id number] [facility] [place]. [id number] OBSTETRIC PANEL + [id number] 04:24:11* Test Item Value Reference Range Interpretation [...] 0.00-0.10 ABS NUCLEATED RBCS (test code = 30227) 0.00 K/UL 0.00-0.11 BLOOD TYPE AND RH [...] BELOW RUBELLA IgG INTERP (test code = 76164) REACTIVE REACTIVE INTERPRETATI ON UNITS RANGE NON-REACTIVE/NON-IMM UNE IU/ML <10 REACTIVE/IMMUNE IU/ML >=10 HEPATITIS B SURF AG (test code = 2739) NON-REACTIVE NON-REACTIVE RPR (test code = 93020) NON-REACTIVE NON-REACTIVE RPR TITER (test code = 3500) NOT INDIC. TITER NOT INDIC. HIV 1/2 4TH GEN, RFLX CONF (test code = 3514) NON-REACTIVE NON-REACTIVE HEPATITIS C REFLEX [id number] 04:24:11* Test Item Value Reference Range Interpretation Comme nts HEPATITIS C ANTIBODY (test c ode = 4675) NON-REACTIVE NON-REACTIVE VARICELLA ZOSTER [id number] 00:00:00* Test Item Value Reference Range Interpretation Comme nts VARICELLA ZOSTER IgG (test c ode = 57436) 132 INDEX Norman HoweDRUG ABUSE SCREEN 10 REFLEX [id number] 00:00:00* Test Item Value Reference Range Interpretation Comme nts AMPHETAMINES (test code = 3201) NEGATIVE BARBITURATES (test code = 3202) NEGATIVE BENZODIAZEPINES (test code = 3203) NEGATIVE CANNABINOIDS (test code = 3204) NEGATIVE COCAINE METABOLITE (test cod e = 3205) NEGATIVE OPIATES (test code = 3209) NEGATIVE OXYCODONE (test code = 72723) NEGATIVE PHENCYCLIDINE (test code = 3210) NEGATIVE METHADONE (test code = 3207) NEGATIVE BUPRENORPHINE (test code = 37714) NEGATIVE SOURCE (test code = 378546) URINE Norman HoweCT/NG, TMA, [id number] 00:00:00* Test Item Value Reference Range Interpretation Comme nts CHLAMYDIA, NAAT, URINE (test code = 26499) NEGATIVE GONORRHEA, NAAT, URINE (test code = 09512) NEGATIVE Norman HoweOBSTETRIC PANEL + [id number] 00:00:00* Test Item Value Reference Range Interpretation [...] K/UL ABS NUCLEATED RBCS (test code = 33065) 0.00 K/UL BLOOD TYPE AND RH (test code = 3901) O POSITIVE ANTIBODY SCREEN (test code = 3902) NEGATIVE RUBELLA ANTIBODY SCREEN (test code = 4600) 18 IU/ML RUBELLA IgG INTERP (test code = 56334) REACTIVE HEPATITIS B SURF AG (test code = 2739) NON-REACTIVE RPR (test code = 47670) NON-REACTIVE RPR TITER (test code = 3500) NOT INDIC. TITER HIV 1/2 4TH GEN, RFLX CONF (test code = 3514) NON-REACTIVE Norman HoweHEPATITIS C REFLEX [id number] 00:00:00* Test Item Value Reference Range Interpretation Comme nts HEPATITIS C ANTIBODY (test c ode = 4675) NON-REACTIVE Norman HoweHEMOGLOBIN [id number] 00:00:00* Test Item Value Reference Range Interpretation Comme nts HEMOGLOBIN A1 (test code = 2575) 97.3 % HEMOGLOBIN A2 (test code = 2576) 2.7 % HEMOGLOBIN F () (test c ode = 2722) 0.0 % HEMOGLOBIN S (test code = 2724) NONE % HEMOGLOBIN C (test code = 2726) NONE % OTHER HEMOGLOBIN VARIANT (te st code = 35388) NONE DETEC % PATHOLOGIST'S INTERPRETATION (test code = 2577) (NOTE) Norman HoweKRISTENP TEST, THINPREP, [id number] 11:36:48* Test Item Value Reference Range Interpretation Comme nts SOURCE: (test code = 8001) Cervical/Endoce rvical SLIDES: (test code = 8011) 1 LMP: (test code = 8021) NOT GIVEN SPECIMEN ADEQUACY: (test code = 32387) (NOTE) Satisfactory for evaluation. Endocervical cells/transformation zone component present. INTERPRETATION: (test code = 72820) NILM/NO EPITH. ABNORMALITY;SEE BELOW --- - NEGATIVE FOR INTRAEPITHELIAL LESION OR MALIGNANCY (NILM) ---- OTHER COMMENTS: (test code = 8081) (NOTE) Shift in luciana suggestive of bacterial vaginosis. NEWSPAPER VENDOR : (test code = 8101) MED Ayala(ASCP)IA C QC TECHNOLOGIST: (test code = 8111) MED Benitez(ASCP)IAC LOCATION: (test code = 44672) (NOTE) Specimens proces sed and interpreted at [facility], [address] [place] [address], , CLIA: [id number] CPT: (test code = 8140) (NOTE) 09668 UNLESS OTH ERWISE INDICATED, COMPUTER AIDED AND NEWSPAPER VENDOR SCREENING PERFORMED. The Pap test is a screening test with an inherent, but low probability of error. Your patient should be reminded to consult you immediately if she experiences any suspicious signs or symptoms, regardless of her Pap test result. An alternate report format containing images or consolidated prior Pap history is available as applicable. PAP TEST, THINPREP, [id number] 00:00:00* Test Item Value Reference Range Interpretation Comme nts SOURCE: (test code = 8001) Cervical/Endocervical SLIDES: (test code = 8011) 1 LMP: (test code = 8021) NOT GIVEN SPECIMEN ADEQUACY: (test code = 86911) (NOTE) INTERPRETATION: (test code = 86651) NILM/NO EPITH. ABNORMALITY;SEE BELOW OTHER COMMENTS: (test code = 8081) (NOTE) NEWSPAPER VENDOR: (test code = 8101) MED Ayala(ASCP)IAC QC TECHNOLOGIST: (test code = 8111) MED Benitez(ASCP)IAC LOCATION: (test code = 67975) (NOTE) CPT: (test code = 8140) (NOTE) Norman Anderson AustinHPV HIGH RISK WITH GENOTYPE, [id number] 17:11:24* Test Item Value Reference Range Interpretation Comme nts HPV HIGH RISK INTERP (test code = 41356) POSITIVE NEGATIVE A HPV 16 (test code = 55341) NEGATIVE HPV 18 (test code = 50093) NEGATIVE HPV, HR, OTHER GENOTYPES (test code = 09781) POSITIVE A Testing methodol ogy is real-time PCR utilizing hydrolysis probes with the Azumio[employer] 4800 system. The test individually detects genotypes [...] PERFORMED AT [facility] [address] [place] [address] PRODUCT SUPPORT MANAGER: KAROL OBREGON M.D. CLIA NUMBER [id number] [place]. [id number] VAGINAL PATHOGENS DNA [id number] 15:51:26* Test Item Value Reference Range Interpretation Comme nts LINDSEY SPECIES (test code = 76205) NEGATIVE NEGATIVE G. VAGINALIS (test code = 50147) POSITIVE NEGATIVE A T. VAGINALIS (test code = 11562) NEGATIVE NEGATIVE Note: The [facility] VPIII Microbial Identification Testis a DNA probe test intended for use in the detectionand identification of Lindsey species, Gardnerellavaginalis and Trichomonas vaginalis nucleic acid. UNLESS OTHERWISE INDICATED, ALL TESTING PERFORMED AT [facility] [address] [place] [address] PRODUCT SUPPORT MANAGER: KAROL OBREGON M.D. CLIA NUMBER [id number] [place]. [id number] VAGINAL PATHOGENS DNA [id number] 00:00:00* Test Item Value Reference Range Interpretation Comme nts LINDSEY SPECIES (test code = 22107) NEGATIVE G. VAGINALIS (test code = 47810) POSITIVE T. VAGINALIS (test code = 20813) NEGATIVE Norman Anderson AustinHPV HIGH RISK WITH GENOTYPE, [id number] 00:00:00* Test Item Value Reference Range Interpretation Comme nts HPV HIGH RISK INTERP (test c ode = 05633) POSITIVE HPV 16 (test code = 90818) NEGATIVE HPV 18 (test code = 84084) NEGATIVE HPV, HR, OTHER GENOTYPES (te st code = 94083) POSITIVE PDFE (test code = PDFReport) PDF Norman Anderson AustinTHYROID STIMULATING [id number] 07:05:10* Test Item Value Reference Range Interpretation Comme nts TSH (test code = 6619862565) 4.58 See_Comment [Automated messa ge] The system which generated this result transmitted reference range: 0.45 - 4.70 mIU/L. The reference range was not used to interpret this result as normal/abnormal. Lab Interpretation (test code = 52675-0) Normal [facility]TRPELH[facility]ERNIN [id number] 06:46:25* Test Item Value Reference Range Interpretation Comme nts TROPONIN I (test code = 2535514614) 0.004 ng/mL <=0.034 SWAPNA (test code = [...] of biotin. Lab Interpretation (test code = 78465-3) Normal [facility] SpringsCOM. METABOLIC PANEL (99256)2023-02-19 06:34:25* Test Item Value Reference Range Interpretation Comme nts NA (test code = 8990295277) 140 mmol/L 135-145 K (test code = 4873358984) 3.4 mmol/L 3.5-5.0 L CL (test code = 7281961252) 108 mmol/L 98-108 CO2 TOTAL (test code = 8811735046) 22 mmol/L 23-31 L AGAP (test code = 8822661679) 10 2-16 BUN (test code = 4701373805) 16 mg/dL 7-23 GLUCOSE (test code = 3859816412) 163 mg/dL 70-110 H CREATININE (test code = 3460293770) 0.57 mg/dL 0.50-1.04 TOTAL BILI (test code = 5506494572) 0.4 mg/dL 0.1-1.1 CALCIUM (test code = 3539234752) 9.6 mg/dL 8.6-10.6 T PROTEIN (test code = 5156408932) 7.6 g/dL 6.3-8.2 ALBUMIN (test code = 0615292583) 4.9 g/dL 3.5-5.0 ALK PHOS (test code = 5087351736) 56 U/L 34-122 ALTv (test code = 1742-6) 22 U/L 5-35 AST(SGOT) (test code = 0005472390) 26 U/L 13-40 eGFR (test code = 5838128564) 124.5 mL/min/1.73m2 SWAPNA (test code = SWAPNA) [...] imaging tests). Lab Interpretation (test code = 71417-2) Abnormal [facility] SpringsLIPASE, [id number] 06:34:05* Test Item Value Reference Range Interpretation Comme nts LIPASE (test code = 7506549371) 81 U/L 0-220 Lab Interpretation (test cod e = 29507-8) Normal [facility] SpringsCB WITH [id number] 06:18:21* Test Item Value Reference Range Interpretation Comme nts WBC (test code = 6690-2) 7.93 See_Comment [Automated Clicktree] The system which generated this result transmitted reference range: 4.30 - 11.10 10*3/?L. The reference range was not used to interpret this result as normal/abnormal. RBC (test code = 789-8) 3.94 See_Comment [Automated [employer]tree] The system which generated this result transmitted [...] g/dL 31.6-35.1 H RDW-SD (test code = 20437-1) 39.3 fL 39.0-49.9 RDW-CV (test code = 788-0) 12.0 % 12.0-15.5 PLT (test code = 777-3) 241 See_Comment [Automated messa ge] The system which generated this result transmitted reference range: 166 - 358 10*3/?L. The reference range was not used to interpret this result as normal/abnormal. MPV (test code = 14116-9) 10.5 fL 9.5-12.9 NRBC/100 WBC (test code = 8949162195) 0.0 See_Comment [Automated me ssage] The system which generated this result transmitted reference range: 0.0 - 10.0 /100 WBCs. The reference range was not used to interpret this result as normal/abnormal. NRBC x10^3 (test code = 4228893159) See_Comment [Automated messa ge] The system which generated this result transmitted reference range: 10*3/?L. The reference range was not used to interpret this result as normal/abnormal. GRAN MAT (NEUT) % (test code = 770-8) 63.1 % IMM GRAN % (test code = 6163837278) 0.10 % LYMPH % (test code = 736-9) 26.1 % MONO % (test code = 5905-5) 6.9 % EOS % (test code = 713-8) 3.3 % BASO % (test code = 706-2) 0.5 % GRAN MAT x10^3(ANC) (test code = 6484996272) 5.00 10*3/uL 1.88-7.09 IMM GRAN x10^3 (test code = 8973337298) 0.00-0.06 LYMPH x10^3 (test code = 731-0) 2.07 10*3/uL 1.32-3.29 MONO x10^3 (test code = 742-7) 0.55 10*3/uL 0.33-0.92 EOS x10^3 (test code = 711-2) 0.26 10*3/uL 0.03-0.39 BASO x10^3 (test code = 704-7) 0.04 10*3/uL 0.01-0.07 Lab Interpretation (test code = 22582-2) Abnormal [facility] TEST, THINPREP, [id number] 00:00:00 * Test Item Value Reference Range Interpretation Comme nts SOURCE: (test code = 8001) Endocervical SLIDES: (test code = 8011) 1 LMP: (test code = 8021) 01/24/2021 SPECIMEN ADEQUACY: (test code = 81818) (NOTE) INTERPRETATION: (test code = 58643) NILM/NO EPITH. ABNORMALITY;SEE BELOW OTHER COMMENTS: (test code = 8081) (NOTE) NEWSPAPER VENDOR: (test code = 8101) Monalisa Rosen CT (ASCP) QC TECHNOLOGIST: (test code = 8111) Baldo Eli,SCT(ASCP)IAC LOCATION: (test code = 05774) (NOTE) CPT: (test code = 8140) (NOTE) Norman HoweHPV HIGH RISK WITH GENOTYPE, [id number] 00:00:00* Test Item Value Reference Range Interpretation Comme nts HPV HIGH RISK INTERP (test c ode = 16939) POSITIVE HPV 16 (test code = 45545) NEGATIVE HPV 18 (test code = 94321) NEGATIVE HPV, HR, OTHER GENOTYPES (te st code = 37977) POSITIVE Norman Howe"
[2024-08-31 19:35] LABS: Absolute Eosinophils 0.2 K/uL (0-0.5); Absolute Lymphocytes (CBC) 1.7 K/uL (0.7-4.9); Absolute Monocytes 0.5 K/uL (0.1-1.3); Absolute Neutrophil 5.3 K/uL (1.8-8.0); Basophils % 0.2 % (0-1.3); Eosinophils % 2.2 % (0-4.4); Hemoglobin 10.2 g/dL (12.0-15.0); Lymphocytes % 21.9 % (15.3-44.8); MCH 31.3 pg (27.0-35.0); MCHC 35.2 g/dL (32.0-36.0); MCV 88.9 fL (80-100); MPV 8.7 fL (7.6-11.3); Monocytes % 7.1 % (3.3-12.3); Neutrophils % 68.6 % (41.7-73.7); Nucleated Red Blood Cells % 0.1 % (0-0); Platelets 221 thou/uL (152-406); RBC Red Blood Cell Count 3.26 M/uL (3.86-4.86); Red Cell Distribution Width 13.6 % (12.1-15.2)
[2024-08-31 19:36] LABS: Specific Gravity 1.012 (1.005-1.030); Sqamous Epithelial <5 /HPF (None Seen); Urine Bacteria None Seen /HPF (<20); Urine Bilirubin NEGATIVE (Negative); Urine Blood Negative (Negative); Urine Clarity Clear (Clear); Urine Color Colorless (Yellow); Urine Culture Reflex Order NOT NEEDED; Urine Glucose NEGATIVE (Negative); Urine Ketones NEGATIVE (Negative); Urine Microscopic Reflex YN ORDER UMIC; Urine Mucus Slight /HPF (None Seen); Urine Nitrite NEGATIVE (Negative); Urine Protein NEGATIVE (Negative); Urine RBC <5 /HPF (None Seen); Urine Urobilinogen Normal (Normal); Urine WBC <5 /HPF (<5)
--- NOTE | 2024-08-31 20:15 | RAD REPORT ---
EXAM:OB Limited CLINICAL HISTORY: with abdominal pain TECHNIQUE: Limited OB ultrasound performed FINDINGS: Single live intrauterine in breech presentation. Cervix 3.7 cm. Placenta is posterior. No subchorionic/retroplacental bleed seen. Cardiac activity 153 bpm. The right and left adnexa unremarkable. Amniotic fluid within normal limits. Femur length 2.7 centimeters 18 weeks 1 day IMPRESSION: Single live intrauterine in breech presentation. Estimated gestational age 18 weeks 1 day SHARLENE 01/31/2025 Normal amniotic fluid If a survey is desired it should be performed on a nonemergent basis.
[2024-08-31] MEDS ORDERED: POTASSIUM CL SA 10 MEQ TAB PO ONE (21:15)
--- NOTE | 2024-08-31 21:44 | ER ---
Nurse's Notes [facility] Name: Irma Mckeon Age: 33 yrs Sex: Female : 1990 Arrival Date: 08/31/2024 Time: 18:40 Bed 13 Private MD: Diagnosis: 17 weeks gestation of Presentation: 08/31 18:55 Chief complaint: Patient states: PELVIC PAIN X 3 DAYS WORSE TODAY. INCREASED PAIN WITH db AMBULATION. Coronavirus screen: Client denies travel out of the [place] in the last 14 days. At this time, the client does not indicate any symptoms associated with coronavirus-19. Ebola Screen: Patient negative for fever greater than or equal to 101.5 degrees Fahrenheit, and additional compatible Ebola Virus Disease symptoms Patient denies exposure to infectious person. Patient denies travel to an Ebola-affected area in the 21 days before illness onset. No symptoms or risks identified at this time. 18:55 Method Of Arrival: Ambulatory db 18:55 Initial Sepsis Screen: Does the patient meet any 2 criteria? No. Patient's initial db sepsis screen is negative. Does the patient have a suspected source of infection? No. Patient's initial sepsis screen is negative. Risk Assessment: Do you want to hurt yourself or someone else? Patient reports no desire to harm self or others. Onset of symptoms was August 28, 2024. 18:55 Acuity: ELLEN 3 db Triage Assessment: 18:55 General: Appears in no apparent distress. comfortable, Behavior is calm, cooperative. db Pain: Complains of pain in pelvis. Neuro: Level of Consciousness is awake, alert, obeys commands, Oriented to person, place, time, situation. Respiratory: Airway is patent Respiratory effort is even, unlabored, Respiratory pattern is regular, symmetrical. : Reports PELVIC PAIN. SOFT IRON INSPECTOR: 18:55 4, Full Term 1, Premature 1, 1, Living 2, Verified db Historical: - Allergies: 18:59 No Known Allergies; db - PMHx: 18:59 Hypercholesterolemia; palpitations; db - PSHx: 18:59 section; left knee repair; db - Immunization history:: Adult Immunizations unknown. - Infectious Disease History:: Denies. - Social history:: Smoking status: Patient denies any tobacco usage or history of. Screenin:29 [facility] ED Fall Risk Assessment (Adult) History of falling in the last 3 months, cp4 including since admission No falls in past 3 months (0 pts) Confusion or Disorientation No (0 pts) Intoxicated or Sedated No (0 pts) Impaired Gait No (0 pts) Mobility Assist Device Used No (0 pt) Altered Elimination No (0 pt) Score/Fall Risk Level 0 - 2 = Low Risk Oriented to surroundings, Maintained a safe environment, Assessed \T\ reinforced patient's understanding of fall precautions, Hourly rounding (assess needs \T\ fall precautionary measures) done. Abuse screen: Denies threats or abuse. Nutritional screening: No deficits noted. Tuberculosis screening: No symptoms or risk factors identified. Assessment: 19:29 General: Appears in no apparent distress. comfortable, Behavior is calm, cooperative, cp4 appropriate for age. Pain: Complains of pain in pelvis Pain currently is 6 out of 10 on a pain scale. Neuro: Level of Consciousness is awake, alert, obeys commands, Oriented to person, place, time, situation. Cardiovascular: Patient's skin is warm and dry. Respiratory: Airway is patent Respiratory effort is even, unlabored. GI: No signs and/or symptoms were reported involving the gastrointestinal system. : No signs and/or symptoms were reported regarding the genitourinary system. EENT: No signs and/or symptoms were reported regarding the EENT system. Derm: No signs and/or symptoms reported regarding the dermatologic system. Musculoskeletal: No signs and/or symptoms reported regarding the musculoskeletal system. 20:30 Reassessment: Patient appears in no apparent distress at this time. Patient and/or cp4 family updated on plan of care and expected duration. Pain level reassessed. Patient is alert, oriented x 3, equal unlabored respirations, skin warm/dry/pink. Vital Signs: 18:55 BP 133 / 72; Pulse 83; Resp 16; Temp 98.3; Pulse Ox 98% ; Weight 74.84 kg; Height 5 ft. db 1 in. ; 20:03 BP 120 / 77; Pulse 77; Resp 18; Pulse Ox 100% ; cp4 21:48 BP 128 / 76; Pulse 81; Resp 18; Pulse Ox 100% ; cp4 18:55 Body Mass Index 31.18 (74.84 kg, 154.94 cm) db ED Course: 18:42 Patient arrived in ED. 18:49 Sloan Maloney FNP-C [facility]5 18:49 Tho Yeung MD is Attending Physician. dr5 18:59 Triage completed. db 18:59 Arm band placed on. db 19:29 Becky Rose is Primary Nurse. cp4 19:29 Bed in low position. Call light in reach. Side rails up X 1. cp4 19:29 Inserted saline lock: 20 gauge in right antecubital area, using aseptic technique. cp4 Blood collected. Flushed with 10 mL NS. 19:29 Initial lab(s) drawn, by me, sent to lab. Urine collected: clean catch specimen. cp4 20:00 US OB Limited In Process Unspecified. EDMS 20:30 Provided Education on: abdominal pain. cp4 20:30 No provider procedures requiring assistance completed. intact, bleeding controlled, No cp4 redness/swelling at site. Pressure dressing applied. Administered Medications: 21:18 Drug: Potassium Chloride PO 40 mEq PO once Route: PO; cp4 21:48 Follow up: Response: No adverse reaction cp4 Medication: 19:29 VIS not applicable for this client. cp4 Outcome: 20:30 Discharged to home ambulatory, cp4 20:30 Condition: stable 20:30 Discharge instructions given to patient, Instructed on discharge instructions, follow up and referral plans. Demonstrated understanding of instructions, follow-up care, 21:44 Discharge ordered by MD. dr5 21:50 Patient left the ED. cp4 Signatures: Dispatcher [employer] EDSC Janneth Casanova, Reg Reg mr Suki Izquierdo, RN RN db Becky Rose cp4 Sloan Maloney FNP-C PHYSIOTHERAPY PRACTICE MANAGER-Cdr5 Corrections: (The following items were deleted from the chart) 18:59 18:55 Temp 98.3F; db db
--- NOTE | 2024-08-31 21:44 | EDPHYS ---
Physician Documentation [facility] Name: Irma Mckeon Age: 33 yrs Sex: Female : 1990 Arrival Date: 08/31/2024 Time: 18:40 Bed 13 Private MD: ED Physician Tho Yeung HPI: 09/01 00:15 This 33 yrs old Female presents to ER via Ambulatory with complaints of 17 wks dr5 , Pelvic Pain. 00:15 Patient is a 33-year-old female with history of hyperlipidemia coming in with 3 days of dr5 lower pelvic pressure. Patient reports she is currently . Patient denies vaginal bleeding or vaginal discharge, or fever.. HOSPITAL LIBRARIAN: 08/31 18:55 4, Full Term 1, Premature 1, 1, Living 2, Verified db Historical: - Allergies: 18:59 No Known Allergies; db - PMHx: 18:59 Hypercholesterolemia; palpitations; db - PSHx: 18:59 section; left knee repair; db - Immunization history:: Adult Immunizations unknown. - Infectious Disease History:: Denies. - Social history:: Smoking status: Patient denies any tobacco usage or history of. ROS: 09/01 00:15 Constitutional: as per hpi dr5 Exam: 00:15 Constitutional: This is a well developed, well nourished patient who is awake, alert, dr5 and in no acute distress. Head/Face: Normocephalic, atraumatic. Eyes: Pupils equal round and reactive to light, extra-ocular motions intact. Lids and lashes normal. Conjunctiva and sclera are non-icteric and not injected. Cornea within normal limits. Periorbital areas with no swelling, redness, or edema. Neck: Trachea midline, no thyromegaly or masses palpated, and no cervical lymphadenopathy. Supple, full range of motion without nuchal rigidity, or vertebral point tenderness. No Meningismus. Chest/axilla: Normal chest wall appearance and motion. Nontender with no deformity. No lesions are appreciated. Cardiovascular: Regular rate and rhythm with a normal S1 and S2. Normal PMI, no JVD. No pulse deficits. Respiratory: Lungs have equal breath sounds bilaterally, clear to auscultation. No rales, rhonchi or wheezes noted. No increased work of breathing, no retractions or nasal flaring. Abdomen/GI: Soft, non-tender, non-distended Back: No spinal tenderness. No costovertebral tenderness. Full range of motion. Skin: Warm, dry with normal turgor. Normal color with no rashes, no lesions, and no evidence of cellulitis. Neuro: Awake and alert, GCS 15, oriented to person, place, time, and situation. Cranial nerves II-XII grossly intact. Motor strength 5/5 in all extremities. Sensory grossly intact. Cerebellar exam normal. Normal gait. Vital Signs: 08/31 18:55 BP 133 / 72; Pulse 83; Resp 16; Temp 98.3; Pulse Ox 98% ; Weight 74.84 kg; Height 5 ft. db 1 in. ; 20:03 BP 120 / 77; Pulse 77; Resp 18; Pulse Ox 100% ; cp4 21:48 BP 128 / 76; Pulse 81; Resp 18; Pulse Ox 100% ; cp4 18:55 Body Mass Index 31.18 (74.84 kg, 154.94 cm) db MDM: 18:53 Medical Screening Exam initiated dr5 09/01 00:15 Differential diagnosis: viral Infection, Spontaneous , threatened , dr5 miscarriage. Data reviewed: vital signs, nurses notes, lab test result(s), radiologic studies, ultrasound. I considered the following discharge prescriptions or medication management in the emergency department Medications were administered in the Emergency Department. See MAR. Care significantly affected by the following chronic conditions: Hyperlipidemia. Care significantly affected by the following Social Determinants of Health: Poor access to healthcare and/or lack of insurance, Poor access to transportation, Problems related to employment. Counseling: I had a detailed discussion with the patient and/or guardian regarding the historical points, exam findings, and any diagnostic results supporting the discharge/admit diagnosis, the presence of at least one elevated blood pressure reading (>120/80) during this emergency department visit, lab results, radiology results, the need for outpatient follow up, for definitive care, a family practitioner, an OB/Gyne specialist, to return to the emergency department if symptoms worsen or persist or if there are any questions or concerns that arise at home. ED course: Blood work and ultrasound discussed with patient. Printed out labs and gave to patient with discharge paperwork to take to OB. Unremarkable labwork and ultrasound. Patient reports her pain has resolved. Patient will follow-up with OB this next week.. 08/31 18:52 Order name: Abo/rh Typing; Complete Time: 20:04 dr5 08/31 18:52 Order name: Basic Metabolic Panel; Complete Time: 21:10 dr5 08/31 18:52 Order name: CBC with Diff; Complete Time: 20:04 dr5 08/31 18:52 Order name: Quantitative Hcg; Complete Time: 21:10 dr5 08/31 18:52 Order name: Urinalysis w/ reflexes; Complete Time: 20:04 dr5 08/31 18:52 Order name: US OB Limited; Complete Time: 20:32 dr5 08/31 18:52 Order name: IV Saline Lock; Complete Time: 19:31 dr5 08/31 18:52 Order name: Labs collected and sent; Complete Time: 19:31 dr5 08/31 18:52 Order name: NPO; Complete Time: 19:31 dr5 Administered Medications: 08/31 21:18 Drug: Potassium Chloride PO 40 mEq PO once Route: PO; cp4 21:48 Follow up: Response: No adverse reaction cp4 Disposition Summary: 08/31/24 21:44 Discharge Ordered Notes: Location: Home dr5 Condition: Stable dr5 Diagnosis - 17 weeks gestation of dr5 Followup: dr5 - With: Emergency Department - When: As needed - Reason: Worsening of condition Followup: dr5 - With: Private Physician - When: 1 - 2 days - Reason: Recheck today's complaints, Continuance of care, Re-evaluation by your physician Discharge Instructions: - Discharge Summary Sheet dr5 - Abdominal Pain During dr5 - Hypokalemia dr5 Forms: - Medication Reconciliation Form dr5 - Patient Portal Instructions dr5 - Leadership Thank You Letter dr5 Signatures: Dispatcher [employer] Suki Ryan, RN RN Becky Chairez cp4 Sloan Maloney, SPOTLIGHT OPERATOR-C SPOTLIGHT OPERATOR-Cdr5 Corrections: (The following items were deleted from the chart) 18:53 18:53 OB Limited+[email or web address].RAD.[email or web address] ordered. PIA PALACIO
[2024-08-31 22:13] VITALS: TEMP 98.3
[2024-08-31 22:14] VITALS: O2SAT 100
[2024-08-31 22:15] VITALS: BP 128/76
== END 2024-08-31 21:50 | disposition home or self-care (01) ==
LOC: ER 18:40
DX: O26.92 Pregnancy related conditions, unspecified, second trimester (principal); R10.2 Pelvic and perineal pain; E78.00 Pure hypercholesterolemia, unspecified; Z3A.17 17 weeks gestation of pregnancy
CPT/HCPCS: 36415; 76815; 80048; 81001; 84702; 85025; 86900; 86901; 99284